=== PATIENT | female | born 1930 | race Caucasian/White ===

== ENCOUNTER 2017-09-05 11:21 | Inpatient (IN) | payer OTHER ==
[~2017-09-05] VITALS: Ht 160 cm; Wt 59.9 kg
--- NOTE | 2017-09-05 11:51 | ED GENERAL ADULT ---
History of Present Illness General Chief Complaint: General Adult Stated Complaint: BIBA, HYPOTENSION Source: patient Exam Limitations: schizophrenia Vital Signs & Intake/Output Vital Signs & Intake/Output Vital Signs Date Time Temp Pulse Resp B/P B/P Pulse O2 O2 Flow FiO2 Mean Ox Delivery Rate 09/06 0800 94 Room Air 09/06 0657 97.9 38 18 110/62 94 Room Air 09/06 0000 Room Air 09/05 2325 98.5 46 20 118/60 96 Room Air 09/05 1942 98 Room Air 09/05 1940 97.7 59 22 120/64 98 Room Air 09/05 1908 97.2 44 18 112/64 97 Room Air Room Air 09/05 1720 97.0 48 18 119/60 98 Room Air Room Air 09/05 1603 37 18 108/55 98 Room Air Room Air 09/05 1436 96.4 35 20 105/62 98 Room Air 09/05 1309 97.0 40 20 104/53 97 Room Air ED Intake and Output 09/06 0000 09/05 1200 Intake Total 120 1000 Output Total Balance 120 1000 Intake, IV 1000 Intake, Oral 120 Number 1 Bowel Movements Patient 132 lb 132 lb Weight Weight Estimated Reported by Patient Measurement Method Allergies Coded Allergies: No Known Allergies (09/05/17) Triage Note: PT BIBA FROM MD'S OFFICE FOR HYPOTENSION AND BRADYCARDIA. PT WAS THERE FOR ROUTINE APPOINTMENT. ARRIVES TO ED, ALERT/ORIENTED/PALE. PT HAS NO COMPLAINTS. BP OBTAINED WITH DOPPLER 90/30, HEARTRATE 40. PT HAS NO COMPLAINTS. INC OF LARGE AMOUNT OF SOFT STOOL, PRATIK CARE PROVIDED. GUIAC NEGATIVE. AWAITING PROVIDER EVAL. Triage Nurses Notes Reviewed? yes HPI: Patient presents for evaluation of decreased heart rate and blood pressure at the upper shaper's office today. The patient herself states that she has felt winded recently but has no other complaints currently. (Nata MCCORMACK,Jeremie Monsalve) Reconcile Medications Aspirin (Aspirin*) 81 MG TAB.CHEW 1 TAB PO DAILY cad (Reported) Atorvastatin Calcium (Lipitor) 80 MG TABLET 1 TAB PO DAILY cholesterol ( Reported) Levothyroxine Sodium 88 MCG TABLET 1 TAB PO DAILY thyroid (Reported) Metoprolol Tartrate 25 MG TABLET 0.5 TAB PO BID htn (Reported) Risperidone (Risperdal) 3 MG TABLET 1 TAB PO QPM mental health (Reported) Ziprasidone HCl (Geodon) 40 MG CAPSULE 1 CAP PO BID mental health (Reported) (Loli MCCORMACK,Neida) Past History Travel History Traveled to Daily past 21 day No Medical History Any Pertinent Medical History? see below for history Cardiovascular: hypertension Psychiatric: schizophrenia Endocrine: hypothyroidism Surgical History Surgical History: non-contributory Psychosocial History What is your primary language Nigerian Tobacco Use: Quit >30 days ago ETOH Use: denies use Illicit Drug Use: denies illicit drug use Family History Hx Contributory? No (Nata MCCORMACK,Jeremie Monsalve) Review of Systems Review of Systems Constitutional: Reports: no symptoms. EENTM: Reports: no symptoms. Respiratory: Reports: no symptoms. Cardiovascular: Reports: see HPI. GI: Reports: no symptoms. Genitourinary: Reports: no symptoms. Musculoskeletal: Reports: no symptoms. Skin: Reports: no symptoms. Neurological/Psychological: Reports: no symptoms. Hematologic/Endocrine: Reports: no symptoms. Immunologic/Allergic: Reports: no symptoms. All Other Systems: Reviewed and Negative (Nata MCCORMACK,Jeremie Monsalve) Physical Exam Physical Exam General Appearance: see below Comments: Gen.: Well-nourished, well-developed, no acute respiratory distress. Head: Normocephalic, atraumatic. Eyes: Normal inspection bilaterally Ears: Normal inspection bilaterally Nose: Normal inspection Throat/mouth : Moist mucosa Neck: Supple, full range of motion, no goiter Heart: Regular rate and rhythm, no murmurs rubs or gallops Lungs: Clear to auscultation bilaterally with normal air entry Chest: Nontender Back: Normal range of motion Abdomen: Soft, nontender, nondistended but with mild tympany, normal bowel sounds Extremities: Normal range of motion grossly, equal radial pulses, no cyanosis clubbing or edema Neurologic: Cranial nerves grossly intact, speech is clear Skin: warm and dry Psychiatric: Calm, cooperative, no apparent delusions or hallucinations Core Measures ACS in differential dx? No CVA/TIA Diagnosis: No Sepsis Present: No Sepsis Focused Exam Completed? No (Nata MCCORMACK,Jeremie Monsalve) Progress Differential Diagnoses I considered the following diagnoses in my evaluation of the patient: Dehydration, volume depletion, electrolyte abnormality, sick sinus syndrome, acute coronary syndrome, medication side effect Plan of Care: Orders Procedure Date/time Status Regular Diet 09/06 B Active Change service to 09/06 0902 Active LYME TITRE 09/06 0600 Complete CBC WITHOUT DIFFERENTIAL 09/06 0600 Complete BASIC ELECTROLYTES PLUS BUN&CR 09/06 0600 Complete TROPONIN LEVEL 09/06 0000 Complete EKG 09/06 0000 Active Change service to 09/06 UNK Active Turn and Reposition 09/05 1951 Active Skin Integrity Protocol 09/05 1951 Active Skin/Pressure Ulcer Assess (Sk 09/05 1951 Active NUTRITIONAL CONSULT 09/05 195 Active Vital Signs 09/05 193 Active Teach/Educate 09/05 193 Active Pain Treatment and Response 09/05 193 Active Nutritional Intake, Monitor 09/05 193 Active Isolation 09/05 193 Active Intake & Output 09/05 193 Active Patient Care Conference 09/05 193 Active Activity/Ambulation 09/05 1939 Active CORTISOL PM 09/05 1810 Complete URINE DRUGS OF ABUSE 09/05 1750 Active URINALYSIS 09/05 1750 Active TROPONIN LEVEL 09/05 1746 Complete EKG 09/05 1746 Active Code Status 09/05 1744 Active Pathway - chart 09/05 1627 Active House Staff 09/05 1627 Active Patient Data 09/05 1627 Active Code Status 09/05 1627 Complete Patient Data 09/05 1608 Active ED Holding Orders 09/05 1604 Active Admit to inpatient 09/05 1604 Active Code Status 09/05 1604 Complete Vital Signs 09/05 1301 Active TOTAL IRON BINDING CAPACITY 09/05 1216 Complete RETICULOCYTE COUNT 09/05 1216 Complete FERRITIN 09/05 1216 Complete SERUM IRON 09/05 1216 Complete Lab Add-on Test 09/05 UNK Active VTE Mechanical Prophylaxis 09/05 UNK Active Vital Signs 09/05 UNK Complete MISTAKE 09/05 UNK Active Telemetry/Clinical Liaison 09/05 UNK Active Nursing Misc 09/05 UNK Active Intake & Output 09/05 UNK Active Current Medications Sig/Fidelia Start time Last Medication Dose Stop Time Status Admin Atorvastatin Calcium 80 MG 1700 09/06 1700 AC (Lipitor) Ferrous Sulfate 325 MG DAILY 09/06 1118 AC (Feosol) Aspirin 81 MG DAILY 09/06 1000 AC 09/06 (Aspirin) 0853 Enoxaparin Sodium 40 MG DAILY 09/06 1000 AC 09/06 (Lovenox) 0853 Levothyroxine Sodium 0.088 MG DAILY AC 09/06 0700 AC 09/06 (Synthroid) 0516 Risperidone 3 MG QPM 09/05 2200 CAN (risperiDONE) Ziprasidone 40 MG BID 09/05 2200 CAN (Geodon 40MG Cap) Acetaminophen 650 MG Q6P PRN 09/05 1630 AC (Tylenol) Ibuprofen 600 MG Q6P PRN 09/05 1630 AC (Motrin) Oxycodone/ 2 TAB Q6P PRN 09/05 1630 AC Acetaminophen (Percocet) Laboratory Tests 09/06/17 0633: Anion Gap 10, Estimated GFR > 60, BUN/Creatinine Ratio 24.3, CBC w Diff NO MAN DIFF REQ, RBC 2.76 L, MCV 82.5, MCH 27.1, RDW 15.5 H, MPV 8.7, Gran % 48.4, Lymphocytes % 41.6, Monocytes % 7.2, Eosinophils % 2.4, Basophils % 0.4, Absolute Granulocytes 2.6, Absolute Lymphocytes 2.3, Absolute Monocytes 0.4, Absolute Eosinophils 0.1, Absolute Basophils 0, PUBS MCHC 32.8 L, Lyme Disease Antibody 0.12 09/06/17 0020: Troponin I < 0.01 09/05/17 1810: Troponin I 0.02, Cortisol PM Sample 10.3 Initial ED EKG: sinus evette, 1st hb Comments: 09/05/2017 1:14:35 PM patient is feeling better and has no specific complaint at this time. Blood pressure is now normal overall heart rate remains in the 30s to 40s beats per minute. IV levothyroxin "stress dose" has been ordered. 09/05/2017 2:54:31 PM patient's case discussed with Dr. Tolentino who recommends telemetry monitoring and discontinuation of metoprolol. (Nata MCCORMACK,Jeremie Monsalve) Departure Departure Disposition: STILL A PATIENT Condition: Stable Clinical Impression Primary Impression: Bradycardia Secondary Impressions: Hypotension Qualifiers: Hypotension type: unspecified hypotension type Qualified Code: I95.9 - Hypotension, unspecified Referrals: Maria Alejandra Falk MD (PCP/Family) Departure Forms: Customer Survey General Discharge Information Observation Note Spoke With: Yobany MCCORMACK,Vadim Physician Advisor Notified: RAYSA MCCORMACK,JONA Skinner Place Patient In: Non-ED OBS Care Area Rationale for Observation: My rational for observation is as follows patient is persistently bradycardic and currently takes metoprolol. This patient's bradycardia places her at risk of hypotension, syncope, chest pain, trouble breathing and mortality, particularly if her heart rate slows any further. I feel she now requires continuous cardiac monitoring and discontinuation of her metoprolol. Cardiology consultation should also be obtained for the possibility of pacemaker placement at the patient's heart rate does not improve with cessation of beta-blockade. The patient is not a good candidate for outpatient management given the possible adverse consequences of her bradycardia along with the need for continuous cardiac monitoring. (Nata MCCORMACK,Jeremie Monsalve) Departure Time of Disposition: 1604 Admission Note Spoke With: Vadim Haywood MD Documentation of Exam: Documentation of any treatments & extenuating circumstances including Concerns Regarding Discharge (functional status, medication knowledge or non-compliance, living conditions, etc.) that warrant an admission rather than observation: [ TELE MONITOR, SERIAL EKG, CARDIOLOGY CONSULT, CONSIDER PACER PADS, HOLD BETA BLOCKERS, CARDIOLOGY CONSULTATION DR TOLENTINO] (Neida Ennis MD) Critical Care Note Critical Care Note Critical Care Time: non-applicable (Neida Ennis MD)
[2017-09-05 12:24] LABS: ABSOLUTE BASOPHIL COUNT 0 /CUMM (0.0-0.2); ABSOLUTE EOSINOPHIL COUNT 0.1 /CUMM (0.0-0.7); ABSOLUTE GRANULOCYTE CT 5.6 /CUMM (1.4-6.5); ABSOLUTE LYMPH COUNT 1.3 /CUMM (1.2-3.4); ABSOLUTE MONOCYTE COUNT 0.6 /CUMM (0.10-0.60); BASOPHIL % 0.6 % (0.0-2.0); EOSINOPHIL % 1.1 % (0-5); GRANULOCYTE % 73.1 % (42.2-75.2); HEMATOCRIT 27.5 % (37-47); MEAN CORPUSCULAR HGB 26.7 PG (27.0-31.0); MEAN CORPUSCULAR HGB CONC 31.8 G/DL (33.0-37.0); MEAN CORPUSCULAR VOLUME 83.9 FL (81.0-99.0); MEAN PLATELET VOLUME 7.9 FL (7.4-10.4); PLATELET COUNT 284 /CUMM (130-400); RBC DISTRIBUTION WIDTH 15.4 % (11.5-14.5); RED BLOOD CELL CT 3.28 /CUMM (4.20-5.40); WHITE BLOOD CELL COUNT 7.7 /CUMM (4.8-10.8)
--- NOTE | 2017-09-05 13:17 | RADIOLOGY REPORT ---
EXAMINATION: XR PORTABLE CHEST CLINICAL INFORMATION: Low blood pressure and heart rate, evaluate for infiltrate. COMPARISON: There are no prior studies for comparison. TECHNIQUE: Portable frontal view of the chest was obtained. FINDINGS: There is a rounded central retrocardiac density noted which could represent a prominent hiatal hernia however a definite air-fluid level is not identified. The left hemidiaphragm is not well visualized. No additional focal areas of airspace opacification are noted, the lungs are otherwise clear. No pleural effusions are present. There is cardiomegaly. The bony structures are unremarkable. IMPRESSION: Poor visualization of left retrocardiac region, left basilar infiltrate is not excluded. Alternatively a rounded density in the retrocardiac region could represent a prominent hiatal hernia. Prior studies may be helpful, alternatively consider obtaining a lateral view.
--- NOTE | 2017-09-05 16:15 | History & Physical ---
John Reilly MDapna 09/05/17 1614: General Information and HPI MD Statement: I have seen and personally examined DORON THORPE and documented this H&P. The patient is a 87 year old F who presented with a patient stated chief complaint of [bradycardia]. Source of Information: patient Exam Limitations: no limitations History of Present Illness: 87-year-old female with past medical history of hypertension, schizophrenia, hypothyroidism was evaluated at endocrinologists office and found to have decreased heart rate 40/m and blood pressure 90/30 and was referred to [facility] for further management. According to patient she offers no complaints and until today's office visit found to have bradycardia and hypotension. Patient denies chest pain, shortness of breath, dizziness, vision changes, weakness, altered sensation, abdominal pain, nausea, vomiting, fever, chills, blackout, increased vision, tinnitus, headache, altered bowel habits. Patient was given a bolus of normal saline in the ER. Patient TSH was 12 and was given a IV stress dose of levothyroxine 50 mcg Allergies/Medications Allergies: Coded Allergies: No Known Allergies (09/05/17) Home Med list Aspirin (Aspirin*) 81 MG TAB.CHEW 1 TAB PO DAILY cad (Reported) Atorvastatin Calcium (Lipitor) 80 MG TABLET 1 TAB PO DAILY cholesterol ( Reported) Levothyroxine Sodium 88 MCG TABLET 1 TAB PO DAILY thyroid (Reported) Metoprolol Tartrate 25 MG TABLET 0.5 TAB PO BID htn (Reported) Risperidone (Risperdal) 3 MG TABLET 1 TAB PO QPM mental health (Reported) Ziprasidone HCl (Geodon) 40 MG CAPSULE 1 CAP PO BID mental health (Reported) Compliance With Home Meds: GOOD Past History Travel History Traveled to Daily past 21 day No Medical History Blood Transfusion Hx: No Neurological: NONE Cardiovascular: hypertension Respiratory: NONE Gastrointestinal: NONE Hepatic: NONE Psychiatric: schizophrenia Endocrine: hypothyroidism Surgical History Surgical History: non-contributory Past Family/Social History Family History Relations & Conditions if any Relation not specified for: *No pertinent family history Psychosocial History Where do you live? Long Term Facility Who Do You Live With? self Primary Language: Andorran ETOH Use: denies use Illicit Drug Use: denies illicit drug use Functional Ability ADLs Independent: dressing, eating, toileting, bathing. Ambulation: walker IADLs Needs Assist: shopping, housework, finances, food prep, telephone, transportation, medication admin. Review of Systems Review of Systems Constitutional: Reports: no symptoms. Cardiovascular: Reports: no symptoms. Respiratory: Reports: no symptoms. GI: Reports: no symptoms. Genitourinary: Reports: no symptoms. Musculoskeletal: Reports: no symptoms. Skin: Reports: no symptoms. Neurological/Psychological: Reports: no symptoms. Exam & Diagnostic Data Last 24 Hrs of Vital Signs/I&O Vital Signs Date Time Temp Pulse Resp B/P B/P Pulse O2 O2 Flow FiO2 Mean Ox Delivery Rate 09/05 1942 98 Room Air 09/05 1908 97.2 44 18 112/64 97 Room Air Room Air 09/05 1720 97.0 48 18 119/60 98 Room Air Room Air 09/05 1603 37 18 108/55 98 Room Air Room Air 09/05 1436 96.4 35 20 105/62 98 Room Air 09/05 1309 97.0 40 20 104/53 97 Room Air 09/05 1202 99 Room Air 09/05 1134 97.7 38 20 90/30 99 Room Air Intake & Output 09/05 1600 09/05 0800 09/05 0000 Intake Total 1000 Output Total Balance 1000 Intake, IV 1000 Patient 132 lb Weight Weight Reported by Patient Measurement Method Physical Exam General Appearance Alert, Oriented X3, Cooperative Skin No Rashes, No Breakdown HEENT Atraumatic Neck Supple, No JVD Cardiovascular Regular Rate, Normal S1, Normal S2, diastolic murmur Lungs Clear to Auscultation Abdomen Normal Bowel Sounds, Soft, No Tenderness Neurological Normal Speech, Strength at 5/5 X4 Ext Extremities ankle edema Last 24 Hrs of Labs/Feroz: Laboratory Tests 09/05/17 1810: Troponin I 0.02, Cortisol PM Sample 10.3 09/05/17 1216: Anion Gap 15, Estimated GFR > 60, BUN/Creatinine Ratio 15.0, Glucose 91, Calcium 9.5, Magnesium 1.9, Iron 26 L, TIBC 380, Ferritin 11.3, Troponin I 0.01, TSH 12.000 H, Free T4 1.71, CBC w Diff NO MAN DIFF REQ, RBC 3.28 L, MCV 83.9, MCH 26.7 L, RDW 15.4 H, MPV 7.9, Gran % 73.1, Lymphocytes % 17.1 L, Monocytes % 8.1, Eosinophils % 1.1, Basophils % 0.6, Absolute Granulocytes 5.6, Absolute Lymphocytes 1.3, Absolute Monocytes 0.6, Absolute Eosinophils 0.1, Absolute Basophils 0, PUBS MCHC 31.8 L, Retic Count 1.48 Diagnostic Data CXR Results Poor visualization of left retrocardiac region, left basilar infiltrate is not excluded. Alternatively a rounded density in the retrocardiac region could represent a prominent hiatal hernia. Prior studies may be helpful, alternatively consider obtaining a lateral view. Assessment/Plan Assessment: 87 year-old female with past medical history of hypertension, hypothyroidism, schizophrenia was referred from typing secretary office with Hypotension and bradycardia. Patient was admitted in telemetry for further evaluation and management Admission vitals Temperature 90.7, pulse rate 38--- 44, respiratory rate 18, blood pressure 90/30 ----118/60 Admission labs WBC 7.7, hemoglobin 8.7, platelets 284, sodium 142, potassium 4.5, BUNs 12, creatinine 0.8, iron 26, TSH 12, free T4 1.71, cortisol 10.3. Problem list 1. Bradycardia for evaluation 2. Hypertension 3. Schizophrenia 4. Hypothyroidism 5. Anemia Assessment and plan 1. Bradycardia can be secondary due to antipsychotic medication, hypothyroidism , anemia. Patient was given a stress dose of levothyroxine in ER. But patient continued having heart rate 35-37. We will monitor her in telemetry and trend troponins and EKG. We will keep pacer pads available at bedside and if patient has continued bradycardia we will consider atropine. Cardiology consult placed. We will continue her aspirin and atorvastatin. 2. Hypertension We will hold her metoprolol in view of hypotension. Patient hypotension improved with bolus of normal saline. Repeat blood pressure 112/64. 3. Schizophrenia We will continue ziprasidone, risperidone. 4. Hypothyroidism We'll continue her levothyroxine 0.088 MCG. Endocrinology consult placed. 5. Anemia We will check iron studies. Guaiac stools were negative. Code-DNR/DNI Diet-heart healthy diet DVT prophylaxis-Lovenox As Ranked By This Provider Problem List: 1. Bradycardia 2. Hypotension Qualifiers Hypotension type: unspecified hypotension type Qualified Code: I95.9 - Hypotension, unspecified Core Measures/Misc (05/07) Acute Coronary Syndrome ACS Diagnosis: No Congestive Heart Failure Congestive Heart Failure Diagnosis No Cerebrovascular Accident CVA/TIA Diagnosis: No VTE (View Protocol) VTE Risk Factors Age>40 No Mechanical VTE Prophylaxis d/t Other No VTE Pharm Prophylaxis d/t Other Sepsis (View protocol) Sepsis Present: No Vadim Haywood MD 09/05/172034: Attending MD Review Statement Attending Statement Attending MD Statement: examined this patient, discuss w/resident/PA/OVEN DAUBER, agreed w/resident/PA/OVEN DAUBER, reviewed EMR data (avail) Attending Assessment/Plan: 87F PMH schizophrenia, HTN, HLD, hypothyroidism sent in from her typing secretary for bradycardia to 35. Patient is pleasant and alert and has no complaints. She is a bit confused but is able to answer all questions and is cooperative. She denies chest pain, lightheadedness, SOB, n/v. EKG shows sinus evette at 38. BP normal. TSH is 12, given IV Synthroid in ED. Plan: Tele, endo and cards consults , stop Metoprolol, Lyme, hold psych medications, pacer pads and Atropine at bedside, DVT PPx Mary Kate Holly MD 09/05/172150: Resident Review Statement Resident Statement: examined this patient, discussed with regulatory intern, agreed with regulatory intern Other Findings: This is a 87 yo female with PMH of hypertension, schizophrenia, hypothyroidism who was BIBA hypothyroidism and bradycardia from doctor's office. Documentation in chart states BP was noted to be 80/50 and HR was in 40s. Pt is AOx3 but incredibly poor historian (cannot tell me where she lives) so most of hisotry is obtained from the chart. I called [employer] for further details and unfortunately the most recent vitals were on 07/06/17 with HR 58, BP 138/64. Pt has had no recent change in medication regimen. The nurse I spoke with stated that the pt has been in routine health with no complaints. She was scheduled for an appt with Dr. Montejo bc she seemed to be losing weight. Only symptom pt can corroborate is that she seems to get more winded frequently. No fevers, night sweats, dizziness, chest pain, chest pressure, SOB, abdominal pain, nausea, vomiting, hematuria, or hematochezia. Nurse corroborates that pt was in usual health. PHYSICAL EXAM: HEENT: Pupils equal and reactive. EOMI Cardiovascular: Nml s1/s2; bradycardic, 2/6 diastolic murmur Skin: no erythema, rash or wounds present. Respiratory:CTAB GI: BSX4, No tenderness on palpation. EXT: trigger finger in l. 4th digit. 3+ ankle edema. no tenderness in calves ASSESSMENT: This is an 87-year-old female past medical history significant for hypertension, schizophrenia, hypothyroidism, who was found to have hypotension and bradycardia. Patient is completely asymptomatic at this time. Will admit to telemetry for further workup and monitoring. 1. Bradycardia and hypotension: Patient does take metoprolol at home. She is given medication by the [facility] staff. They deny any increase in dosage recently. Additionally, upon workup in ED patient has TSH of 12 and free T4 1.71. She was given an extra dose of IV levothyroxine in ED. EKG showed rate of 44: Normal sinus rhythm and QTc 459. Her blood pressure was 90/30 in ED. A quickly climbed up after one bolus of IV fluids. Differential diagnosis includes beta raeann, hypothyroidism, Lyme disease, atypical antipsychotic, cortisol insufficiency, or ischemic event.. * EKG and troponins * Urine tox * Follow-up TSH and free T4 * Endocrinology consult * Random cortisol level * Pacer pads at bedside * Atropine at bedside * Lyme titer * Holding all psych meds as there has been some reported incidents of bradycardia associated with atypical antipsychotics. * Holding beta raeann * Appreciate cardiology input * Appreciate endocrinology input 2. Anemia: Patient has hemoglobin 8.7 and hematocrit 27.5. In April 2017 hemoglobin was 9.8. She seems to be chronically low. * Iron studies * retic count * Type and cross * guiac negative 3. Schizophrenia: Patient takes Risperdal 3 mg, 1 tab daily and ziprasidone 40 mg, 1 tab by mouth twice a day. This regimen has been placed on hold given bradycardia. * Reevaluate in a.m. * Consider psych consult in a.m. 4. Incidental x-ray finding: There is "rounded central retrocardiac density"on chest x-ray. Unsure significance. * Obtain a repeat chest x-ray but this time PA and lateral view 5. Hypothyroid: TSH 12, FT4 1.71. Given IV levothyroxine in ED. * Endo consult * continue home levothyroxine of 88mcg chem ppx reg diet I asked patient multiple times regarding her CODE STATUS. She stated that she "did not wish to conjecture" about such things. I explained that we do not anticipate her imminent demise but she refused to share her thoughts on CODE STATUS other than she "left it in the hands of Zay." CODE STATUS at [facility] is DNR/DNI-verified on both paperwork and verbally. We'll continue same here.
[2017-09-05] MEDS ORDERED: LEVOTHYROXINE88 MCG PO (19:19)
[2017-09-05] MEDS ORDERED: LIPITOR80 M1 PO (19:19)
[2017-09-05] MEDS ORDERED: ASPIRIN81 M4 PO (19:19)
[2017-09-05] MEDS ORDERED: METOPROLOL TART25 M1 PO (19:20)
[2017-09-05] MEDS ORDERED: RISPERDAL3 M1 PO (19:20)
[2017-09-05] MEDS ORDERED: GEODON40 MG PO (19:21)
[2017-09-05 19:40] VITALS: BP 120/64
--- NOTE | 2017-09-05 19:54 | RADIOLOGY REPORT ---
EXAMINATION: XR CHEST CLINICAL INFORMATION: PREV x-ray WITH ? L BASILAR INFILTRATE COMPARISON: Chest x-ray 09/05/2017, 12:36 PM TECHNIQUE: 2 views of the chest were obtained. 6:57 PM FINDINGS: There is a large hiatal hernia. This accounts for the density in the retrocardiac area on the prior chest x-ray. There is no acute infiltrate. No pulmonary vascular congestion and no pleural effusion. No acute abnormality. IMPRESSION: Large hiatal hernia accounts for the density in the retrocardiac area on the prior chest x-ray today. There is no acute change of the chest.
--- NOTE | 2017-09-05 20:37 | Admission Certification ---
Admission Certification Certification Statement - As attending physician, I certify that at the time of - admission, based on clinical presentation, severity of - symptoms, need for further diagnostic testing and - therapeutic interventions, and risk of adverse outcomes - without in-hospital treatment, in my clinical assessment, - this patient requires an acute hospital stay for a minimum - of two nights or longer. I have also considered psychsocial - factors such as support system, advanced age, financial - issues, cognitive issues, and failed out-patient treatments, - past re-admission history, safety of patient, and lack of - compliance as applicable. Specific rationale supporting this admission is: Bradycardia 35
[2017-09-05 23:25] VITALS: BP 118/60
--- NOTE | 2017-09-06 06:29 | PN- Housestaff ---
Melba MCCORMACK,Aisha 09/06/17 0629: Subjective Follow-up For: Bradycardia and hypotension Complaints: no complaints Tele-Events Since Last Visit: Bradycardia heart rate 40 Subjective: I saw the patient today at bedside. She was lying in the bed comfortably. She says she slept well overnight and offers no complaints. She denies chest pain, shortness of breath, headache, nausea, vomiting. Review of Systems Constitutional: Reports: no symptoms. Cardiovascular: Reports: no symptoms. Respiratory: Reports: no symptoms. Gastrointestinal: Reports: no symptoms. Genitourinary: Reports: no symptoms. Musculoskeletal: Reports: no symptoms. Objective Last 24 Hrs of Vital Signs/I&O Vital Signs Date Time Temp Pulse Resp B/P B/P Pulse O2 O2 Flow FiO2 Mean Ox Delivery Rate 09/06 0800 94 Room Air 09/06 0657 97.9 38 18 110/62 94 Room Air 09/06 0000 Room Air 09/05 2325 98.5 46 20 118/60 96 Room Air 09/05 1942 98 Room Air 09/05 1940 97.7 59 22 120/64 98 Room Air 09/05 1908 97.2 44 18 112/64 97 Room Air Room Air 09/05 1720 97.0 48 18 119/60 98 Room Air Room Air 09/05 1603 37 18 108/55 98 Room Air Room Air 09/05 1436 96.4 35 20 105/62 98 Room Air 09/05 1309 97.0 40 20 104/53 97 Room Air 09/05 1202 99 Room Air Intake & Output 09/06 1600 09/06 0800 09/06 0000 Intake Total 120 120 Output Total Balance 120 120 Intake, Oral 120 120 Number 1 1 Bowel Movements Patient 132 lb Weight Weight Estimated Measurement Method Physical Exam General Appearance: Alert, Oriented X3, Cooperative HEENT: Atraumatic Cardiovascular: Regular Rate, Normal S1, Normal S2 Lungs: Clear to Auscultation Abdomen: Soft, No Tenderness Neurological: Strength at 5/5 X4 Ext, Normal Tone Current Medications: Current Medications Sig/Fidelia Start time Last Medication Dose Route Stop Time Status Admin Acetaminophen 650 MG Q6P PRN 09/05 1630 AC PO Aspirin 81 MG DAILY 09/06 1000 AC 09/06 PO 0853 Atorvastatin Calcium 80 MG 1700 09/06 1700 AC PO Atropine Sulfate 1 MG .STK-MED ONE 09/05 2107 DC IM 09/05 210 Enoxaparin Sodium 40 MG DAILY 09/06 1000 AC 09/06 SC 0853 Ferrous Sulfate 325 MG DAILY 09/06 1118 AC PO Ibuprofen 600 MG Q6P PRN 09/05 1630 AC PO Levothyroxine Sodium 0.088 MG DAILY AC 09/06 0700 AC 09/06 PO 0516 Levothyroxine Sodium 50 MCG ONCE ONE 09/05 1315 DC 09/05 IV 09/05 1316 1602 Oxycodone/ 2 TAB Q6P PRN 09/05 1630 AC Acetaminophen PO Risperidone 3 MG QPM 09/05 2200 CAN PO Sodium Chloride 1,000 ML BOLUS ONE 09/05 1215 DC 09/05 IV 09/05 1314 1216 Ziprasidone 40 MG BID 09/05 2200 CAN PO Last 24 Hrs of Lab/Feroz Results Last 24 Hrs of Labs/Mics: Laboratory Tests 09/06/17 0633: Anion Gap 10, Estimated GFR > 60, BUN/Creatinine Ratio 24.3, CBC w Diff NO MAN DIFF REQ, RBC 2.76 L, MCV 82.5, MCH 27.1, RDW 15.5 H, MPV 8.7, Gran % 48.4, Lymphocytes % 41.6, Monocytes % 7.2, Eosinophils % 2.4, Basophils % 0.4, Absolute Granulocytes 2.6, Absolute Lymphocytes 2.3, Absolute Monocytes 0.4, Absolute Eosinophils 0.1, Absolute Basophils 0, PUBS MCHC 32.8 L, Lyme Disease Antibody Pending 09/06/17 0020: Troponin I < 0.01 09/05/17 1810: Troponin I 0.02, Cortisol PM Sample 10.3 09/05/17 1216: Anion Gap 15, Estimated GFR > 60, BUN/Creatinine Ratio 15.0, Glucose 91, Calcium 9.5, Magnesium 1.9, Iron 26 L, TIBC 380, Ferritin 11.3, Troponin I 0.01, TSH 12.000 H, Free T4 1.71, CBC w Diff NO MAN DIFF REQ, RBC 3.28 L, MCV 83.9, MCH 26.7 L, RDW 15.4 H, MPV 7.9, Gran % 73.1, Lymphocytes % 17.1 L, Monocytes % 8.1, Eosinophils % 1.1, Basophils % 0.6, Absolute Granulocytes 5.6, Absolute Lymphocytes 1.3, Absolute Monocytes 0.6, Absolute Eosinophils 0.1, Absolute Basophils 0, PUBS MCHC 31.8 L, Retic Count 1.48 Assessment/Plan Assessment: 87 year-old female with past medical history of hypertension, hypothyroidism, schizophrenia was referred from toll service observer office with Hypotension and bradycardia. Patient was admitted in telemetry for further evaluation and management Admission vitals Temperature 90.7, pulse rate 38--- 44, respiratory rate 18, blood pressure 90/30 ----118/60 Admission labs WBC 7.7, hemoglobin 8.7, platelets 284, sodium 142, potassium 4.5, BUNs 12, creatinine 0.8, iron 26, TSH 12, free T4 1.71, cortisol 10.3. Problem list 1. Bradycardia for evaluation 2. Hypertension 3. Schizophrenia 4. Hypothyroidism 5. Anemia Assessment and plan 1. Bradycardia mostly looks like secondary due to hypothyroidism ineffective dose of levothyroxine. Endocrine consult placed. We will follow endocrinology recommendation. Can be secondary due to antipsychotic medication, hypothyroidism, or anemia. Patient was given a stress dose of levothyroxine in ER. But patient continued having heart rate 35-37. We will keep pacer pads available at bedside and if patient has continued to have bradycardia we will consider atropine. Patient will be followed by pathology supervisor today. Pacemaker interrogation will be done today. We will continue her aspirin and atorvastatin. 2. Hypertension We will hold her metoprolol in view of hypotension. Patient hypotension improved with bolus of normal saline. Repeat blood pressure 112/64. 3. Schizophrenia We will continue ziprasidone, risperidone. 4. Hypothyroidism We'll continue her levothyroxine 0.088 MCG. 5. Anemia We will check iron studies. Guaiac stools were negative. Code-DNR/DNI Diet-heart healthy diet DVT prophylaxis-Lovenox Problem List: 1. Bradycardia 2. Hypotension Pain Ratin Pain Location: none Pain Goal: Remain pain free Pain Plan: tyenol Tomorrow's Labs & Rationales: joaquin Ortega MD,Myah 09/06/17 1125: Attending Review Statement Attending Statement Attending Statement: examined this patient, discuss w/resident/PA/MEDIA SERVICES COORDINATOR, agreed w/resident/PA/MEDIA SERVICES COORDINATOR, reviewed EMR data (avail), discussed with nursing, discussed with case mgmt, amended to note Attending Assessment/Plan: Patient seen and examined. Resting comfortably and not in any acute distress, she continues to have sinus bradycardia on telemetry monitoring however rates have improved since admission. She denies any lightheadedness or chest pain. Denies shortness of breath or palpitations. She is hemodynamically stable. On examination heart sounds are regular but slow. Lungs are clear bilaterally. Abdomen is soft and nontender. She has no peripheral edema. Case discussed with her toll service observer. Patient has a history of hypothyroidism and was on Synthroid. Back in July her TSH was 5 her TSH trended down to 20 about a week later3. Her levothyroxine dose was increased to 88 mcg daily. With this dose her TSH has been trending downwards, her TSH trended down to 20 a few days after adjusting medication. It trended down to 11.5 last week. Her TSH is currently 12. Case was discussed with the endocrinology service, due to the improvement of her TSH level we will continue her on this regimen of Levothyroxine. Her bradycardia is likely a combination of her hypothyroidism, antipsychotic medications and the beta-raeann therapy she was on at home. Her beta-raeann and antipsychotic therapy are currently on hold and her hypothyroidism is being treated with levothyroxine. If she continues to improve with medical management she will not require placement of a permanent pacemaker. Cardiology notes appreciated. Patient is not on anticoagulant therapy. Obtain records from her primary care provider. Her iron profile is consistent with iron deficiency. H&H is acutely low at this morning compared to yesterday. Check stool guaiac and begin patient on oral iron supplements. Monitor H&H every 12 hours. Transfuse to keep hemoglobin level greater than 7 if persistently low.
[2017-09-06 06:57] VITALS: BP 110/62
[2017-09-06 08:22] LABS: ABSOLUTE BASOPHIL COUNT 0 /CUMM (0.0-0.2); ABSOLUTE EOSINOPHIL COUNT 0.1 /CUMM (0.0-0.7); ABSOLUTE GRANULOCYTE CT 2.6 /CUMM (1.4-6.5); ABSOLUTE LYMPH COUNT 2.3 /CUMM (1.2-3.4); ABSOLUTE MONOCYTE COUNT 0.4 /CUMM (0.10-0.60); BASOPHIL % 0.4 % (0.0-2.0); EOSINOPHIL % 2.4 % (0-5); GRANULOCYTE % 48.4 % (42.2-75.2); HEMATOCRIT 22.8 % (37-47); MEAN CORPUSCULAR HGB 27.1 PG (27.0-31.0); MEAN CORPUSCULAR HGB CONC 32.8 G/DL (33.0-37.0); MEAN CORPUSCULAR VOLUME 82.5 FL (81.0-99.0); MEAN PLATELET VOLUME 8.7 FL (7.4-10.4); PLATELET COUNT 245 /CUMM (130-400); RBC DISTRIBUTION WIDTH 15.5 % (11.5-14.5); RED BLOOD CELL CT 2.76 /CUMM (4.20-5.40); WHITE BLOOD CELL COUNT 5.4 /CUMM (4.8-10.8)
--- NOTE | 2017-09-06 11:17 | Cons- Cardiology ---
General Information and HPI Consulting Request Date of Consult: 09/06/17 Requested By: Myah Ortega MD Reason for Consult: Bradycardia Source of Information: patient, old records Exam Limitations: dementia History of Present Illness: The patient is an 87-year-old woman with a past medical history of paroxysmal atrial fibrillation, schizophrenia, both thyroid isn't, hypertension and hyperlipidemia. She was seen by her neurologist on a routine visit and noted to be bradycardic with heart rates of 30s as well as hypotensive with systolic blood pressures of 90s. She was then sent to our emergency room for further management. On arrival, the patient is otherwise asymptomatic for chest pains, palpitations nor dyspnea. She however is a suboptimal historian. On review of her outpatient records, the patient has generally been from a cardiac standpoint and has heart rates in the 50s. There has been no recent change in her medication regimen noted. No otherwise [id number] agents were used. On arrival however she was noted to be hypothyroid, with a TSH of 12. Bradycardia was thought to be multifactorial including due to her antipsychotic regimen. This was held with subsequent improvement in her underlying heart rate. Allergies/Medications Allergies: Coded Allergies: No Known Allergies (09/05/17) Home Med List: Aspirin (Aspirin*) 81 MG TAB.CHEW 1 TAB PO DAILY cad (Reported) Atorvastatin Calcium (Lipitor) 80 MG TABLET 1 TAB PO DAILY cholesterol ( Reported) Levothyroxine Sodium 88 MCG TABLET 1 TAB PO DAILY thyroid (Reported) Metoprolol Tartrate 25 MG TABLET 0.5 TAB PO BID htn (Reported) Risperidone (Risperdal) 3 MG TABLET 1 TAB PO QPM mental health (Reported) Ziprasidone HCl (Geodon) 40 MG CAPSULE 1 CAP PO BID mental health (Reported) Current Medications: Current Medications Sig/Fidelia Start time Last Medication Dose Route Stop Time Status Admin Acetaminophen 650 MG Q6P PRN 09/05 1630 AC PO Aspirin 81 MG DAILY 09/06 1000 AC 09/06 PO 0853 Atorvastatin Calcium 80 MG 1700 09/06 1700 AC PO Atropine Sulfate 1 MG .STK-MED ONE 09/05 2106 DC IM 09/05 2107 Enoxaparin Sodium 40 MG DAILY 09/06 1000 AC 09/06 SC 0853 Ibuprofen 600 MG Q6P PRN 09/05 1630 AC PO Levothyroxine Sodium 0.088 MG DAILY AC 09/06 0700 AC 09/06 PO 0516 Levothyroxine Sodium 50 MCG ONCE ONE 09/05 1315 DC 09/05 IV 09/05 1316 1602 Oxycodone/ 2 TAB Q6P PRN 09/05 1630 AC Acetaminophen PO Risperidone 3 MG QPM 09/05 2200 CAN PO Sodium Chloride 1,000 ML BOLUS ONE 09/05 1215 DC 09/05 IV 09/05 1314 1216 Ziprasidone 40 MG BID 09/05 2200 CAN PO Review of Systems Review of Systems: The review of systems was will to be adequately obtained due to the patient's underlying dementia Past History Travel History Traveled to Daily past 21 day No Medical History Blood Transfusion Hx: No Neurological: NONE EENT: DENIES Cardiovascular: hypertension Respiratory: NONE Gastrointestinal: NONE Hepatic: NONE Renal: DENIES Musculoskeletal: DENIES Psychiatric: schizophrenia Endocrine: hypothyroidism Blood Disorders: DENIES Cancer(s): DENIES 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 [facility] Who Do You Live With? self Services at Home: Nursing Primary Language: Sudanese Smoking Status: Former Smoker ETOH Use: denies use Illicit Drug Use: denies illicit drug use Functional Ability ADLs Independent: dressing, eating, toileting, bathing. Ambulation: walker IADLs Needs Assist: shopping, housework, finances, food prep, telephone, transportation, medication admin. Exam & Diagnostic Data Vital Signs and I&O Vital Signs Date Time Temp Pulse Resp B/P B/P Pulse O2 O2 Flow FiO2 Mean Ox Delivery Rate 09/06 0800 94 Room Air 09/06 0657 97.9 38 18 110/62 94 Room Air 09/06 0000 Room Air 09/05 2325 98.5 46 20 118/60 96 Room Air 09/05 1942 98 Room Air 09/05 1940 97.7 59 22 120/64 98 Room Air 09/05 1908 97.2 44 18 112/64 97 Room Air Room Air 09/05 1720 97.0 48 18 119/60 98 Room Air Room Air 09/05 1603 37 18 108/55 98 Room Air Room Air 09/05 1436 96.4 35 20 105/62 98 Room Air 09/05 1309 97.0 40 20 104/53 97 Room Air 09/05 1202 99 Room Air 09/05 1134 97.7 38 20 90/30 99 Room Air Intake & Output 09/06 1600 09/06 0809/06 0000 09/05 1600 09/05 0800 09/05 0000 Intake Total 103 552 1888 Output Total Balance 224 871 2657 Intake, IV 1000 Intake, Oral 120 120 Number 1 1 Bowel Movements Patient 132 lb 132 lb Weight Weight Estimated Reported by Patient Measurement Method Physical Exam: General: Nontoxic, no apparent distress, not oriented to place or time. HEENT: Sclera and conjunctiva within normal limits, without xanthelasmas. Neck: Carotids 2+ without bruits. Respiratory: Clear to auscultation, air movement is good, without accessory respiratory muscle use. Heart: Regular rate and rhythm, without murmurs, without JVD. Abdomen: Soft, nontender, no masses, normoactive bowel sounds. Extremities: Without clubbing, cyanosis, without edema. Neuro: Nonfocal exam, strength, 5 out of 5 Skin: Within normal limits without lesions. Psych: Mood and affect: Normal Labs/Feroz Results: Laboratory Tests 09/06 09/06 09/05 0633 0020 1810 Chemistry Sodium (137 - 145 mmol/L) 140 Potassium (3.5 - 5.1 mmol/L) 4.4 Chloride (98 - 107 mmol/L) 104 Carbon Dioxide (22 - 30 mmol/L) 26 Anion Gap (5 - 16) 10 BUN (7 - 17 mg/dL) 17 Creatinine (0.5 - 1.0 mg/dL) 0.7 Estimated GFR (>60 ml/min) > 60 BUN/Creatinine Ratio (7 - 25 %) 24.3 Troponin I (< 0.11 ng/ml) < 0.01 0.02 Cortisol PM Sample (1.7 - 14.1) 10.3 Hematology CBC w Diff NO MAN DIFF REQ WBC (4.8 - 10.8 /CUMM) 5.4 RBC (4.20 - 5.40 /CUMM) 2.76 L Hgb (12.0 - 16.0 G/DL) 7.5 L Hct (37 - 47 %) 22.8 L MCV (81.0 - 99.0 FL) 82.5 MCH (27.0 - 31.0 PG) 27.1 RDW (11.5 - 14.5 %) 15.5 H Plt Count (130 - 400 /CUMM) 245 MPV (7.4 - 10.4 FL) 8.7 Gran % (42.2 - 75.2 %) 48.4 Lymphocytes % (20.5 - 51.1 %) 41.6 Monocytes % (1.7 - 9.3 %) 7.2 Eosinophils % (0 - 5 %) 2.4 Basophils % (0.0 - 2.0 %) 0.4 Absolute Granulocytes (1.4 - 6.5 /CUMM) 2.6 Absolute Lymphocytes (1.2 - 3.4 /CUMM) 2.3 Absolute Monocytes (0.10 - 0.60 /CUMM) 0.4 Absolute Eosinophils (0.0 - 0.7 /CUMM) 0.1 Absolute Basophils (0.0 - 0.2 /CUMM) 0 PUBS MCHC (33.0 - 37.0 G/DL) 32.8 L Serology Lyme Disease Antibody Pending 09/05 1216 Chemistry Sodium (137 - 145 mmol/L) 142 Potassium (3.5 - 5.1 mmol/L) 4.5 Chloride (98 - 107 mmol/L) 102 Carbon Dioxide (22 - 30 mmol/L) 25 Anion Gap (5 - 16) 15 BUN (7 - 17 mg/dL) 12 Creatinine (0.5 - 1.0 mg/dL) 0.8 Estimated GFR (>60 ml/min) > 60 BUN/Creatinine Ratio (7 - 25 %) 15.0 Glucose (65 - 99 mg/dL) 91 Calcium (8.4 - 10.2 mg/dL) 9.5 Magnesium (1.6 - 2.3 mg/dL) 1.9 Iron (37 - 170 ug/dL) 26 L TIBC (265 - 497 ug/dL) 380 Ferritin (11.1 - 264 ng/mL) 11.3 Troponin I (< 0.11 ng/ml) 0.01 TSH (0.270 - 4.200 uIU/mL) 12.000 H Free T4 (0.85 - 1.93 ng/dL) 1.71 Hematology CBC w Diff NO MAN DIFF REQ WBC (4.8 - 10.8 /CUMM) 7.7 RBC (4.20 - 5.40 /CUMM) 3.28 L Hgb (12.0 - 16.0 G/DL) 8.7 L Hct (37 - 47 %) 27.5 L MCV (81.0 - 99.0 FL) 83.9 MCH (27.0 - 31.0 PG) 26.7 L RDW (11.5 - 14.5 %) 15.4 H Plt Count (130 - 400 /CUMM) 284 MPV (7.4 - 10.4 FL) 7.9 Gran % (42.2 - 75.2 %) 73.1 Lymphocytes % (20.5 - 51.1 %) 17.1 L Monocytes % (1.7 - 9.3 %) 8.1 Eosinophils % (0 - 5 %) 1.1 Basophils % (0.0 - 2.0 %) 0.6 Absolute Granulocytes (1.4 - 6.5 /CUMM) 5.6 Absolute Lymphocytes (1.2 - 3.4 /CUMM) 1.3 Absolute Monocytes (0.10 - 0.60 /CUMM) 0.6 Absolute Eosinophils (0.0 - 0.7 /CUMM) 0.1 Absolute Basophils (0.0 - 0.2 /CUMM) 0 PUBS MCHC (33.0 - 37.0 G/DL) 31.8 L Retic Count (0.5 - 2.0 %) 1.48 Assessment/Plan Assessment/Plan 87-year-old woman with a past medical history of paroxysmal atrial fibrillation, schizophrenia, both thyroid isn't, hypertension and hyperlipidemia. She was seen by her neurologist on a routine visit and noted to be bradycardic with heart rates of 30s as well as hypotensive with systolic blood pressures of 90s. She was then sent to our emergency room for further management. Bradycardia: Likely due to her medication regimen including her anti-schizophrenic regimen as well as low-dose metoprolol and hypothyroidism. At this time, her medication regimen has been held, and her heart rates have improved. We will continue to treat her hypothyroidism., And once improved, may consider restarting her antipsychotic regimen if needed. There is no indication for a pacemaker implantation at this time. Atrial fibrillation: The patient was noted to have paroxysmal atrial fibrillation on remote outpatient noted review. No evidence for the same however can be found at this time. As we have not seen atrial fibrillation, and as she has increased risk factors for full anticoagulation, I would not initiate this at this time. Further records from her outpatient primary care visits will be obtained to clarify this. Thank you for allowing us to participate in the care of your patient. Please do not hesitate to contact us further with any questions. Sincerely, Dano Yuen MD [facility][1] Cardiology [facility] Consult Acknowledgment - Thank you for your consult request.
[2017-09-06 15:08] VITALS: BP 126/70
--- NOTE | 2017-09-06 17:04 | Cons- Endocrinology ---
General Information and HPI Consulting Request Date of Consult: 09/06/17 Requested By: medical team Reason for Consult: management of hypothyroidism Source of Information: patient, old records Exam Limitations: confusion, poor historian History of Present Illness: 87 y/o female with PMHsignificant for schizophrenia and hypothyroidism, was referred to ER for evaluation after she was found to be hypotensive and bradycardic. In 07/2017, her TSH was 53.5. She was put on Levothyroxine 88 mcg daily. Repeat TFT done on 08/31/2017 showed TSH 11.5. Repeat TFT done on 09/05/2017-- TSH 12 and free T4 1.71. Patient received 50 mcg of levothyroxine iv while she was in ER. Her random cortisol level was only 10.3. Allergies/Medications Allergies: Coded Allergies: No Known Allergies (09/05/17) Home Med List: Aspirin (Aspirin*) 81 MG TAB.CHEW 1 TAB PO DAILY cad (Reported) Atorvastatin Calcium (Lipitor) 80 MG TABLET 1 TAB PO DAILY cholesterol ( Reported) Levothyroxine Sodium 88 MCG TABLET 1 TAB PO DAILY thyroid (Reported) Metoprolol Tartrate 25 MG TABLET 0.5 TAB PO BID htn (Reported) Risperidone (Risperdal) 3 MG TABLET 1 TAB PO QPM mental health (Reported) Ziprasidone HCl (Geodon) 40 MG CAPSULE 1 CAP PO BID mental health (Reported) Review of Systems Review of Systems Constitutional: Reports: see HPI. Cardiovascular: Denies: chest pain. Respiratory: Reports: short of breath. GI: Denies: abdominal pain. Hematologic/Endocrine: Denies: polyuria, polydipsia. 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 Assisted Facility Who Do You Live With? self Services at Home: Nursing Primary Language: Divehi Smoking Status: Former Smoker ETOH Use: denies use Illicit Drug Use: denies illicit drug use Functional Ability ADLs Independent: dressing, eating, toileting, bathing. Ambulation: walker IADLs Needs Assist: shopping, housework, finances, food prep, telephone, transportation, medication admin. Exam & Diagnostic Data Last 24 Hrs of Vital Signs/I&O Vital Signs Date Time Temp Pulse Resp B/P B/P Pulse O2 O2 Flow FiO2 Mean Ox Delivery Rate 09/06 1508 97.6 64 20 126/70 97 Room Air 09/06 0800 94 Room Air 09/06 0657 97.9 38 18 110/62 94 Room Air 09/06 0000 Room Air 09/05 2325 98.5 46 20 118/60 96 Room Air 09/05 1942 98 Room Air 09/05 1940 97.7 59 22 120/64 98 Room Air 09/05 1908 97.2 44 18 112/64 97 Room Air Room Air 09/05 1720 97.0 48 18 119/60 98 Room Air Room Air Intake & Output 09/06 1600 09/06 0800 09/06 0000 Intake Total 700 120 120 Output Total Balance 700 120 120 Intake, Oral 700 120 120 Number 2 1 1 Bowel Movements Patient 132 lb 132 lb Weight Weight Estimated Measurement Method Physical Exam General Appearance: no apparent distress Neck: normal inspection Respiratory: crackles Cardiovascular: bradycardia (mild), systolic murmur Gastrointestinal: soft Extremities: no edema Skin: Pale Labs/Feroz Results: Laboratory Tests 09/06 09/06 09/05 0633 0020 1810 Chemistry Sodium (137 - 145 mmol/L) 140 Potassium (3.5 - 5.1 mmol/L) 4.4 Chloride (98 - 107 mmol/L) 104 Carbon Dioxide (22 - 30 mmol/L) 26 Anion Gap (5 - 16) 10 BUN (7 - 17 mg/dL) 17 Creatinine (0.5 - 1.0 mg/dL) 0.7 Estimated GFR (>60 ml/min) > 60 BUN/Creatinine Ratio (7 - 25 %) 24.3 Troponin I (< 0.11 ng/ml) < 0.01 0.02 Cortisol PM Sample (1.7 - 14.1) 10.3 Hematology CBC w Diff NO MAN DIFF REQ WBC (4.8 - 10.8 /CUMM) 5.4 RBC (4.20 - 5.40 /CUMM) 2.76 L Hgb (12.0 - 16.0 G/DL) 7.5 L Hct (37 - 47 %) 22.8 L MCV (81.0 - 99.0 FL) 82.5 MCH (27.0 - 31.0 PG) 27.1 RDW (11.5 - 14.5 %) 15.5 H Plt Count (130 - 400 /CUMM) 245 MPV (7.4 - 10.4 FL) 8.7 Gran % (42.2 - 75.2 %) 48.4 Lymphocytes % (20.5 - 51.1 %) 41.6 Monocytes % (1.7 - 9.3 %) 7.2 Eosinophils % (0 - 5 %) 2.4 Basophils % (0.0 - 2.0 %) 0.4 Absolute Granulocytes (1.4 - 6.5 /CUMM) 2.6 Absolute Lymphocytes (1.2 - 3.4 /CUMM) 2.3 Absolute Monocytes (0.10 - 0.60 /CUMM) 0.4 Absolute Eosinophils (0.0 - 0.7 /CUMM) 0.1 Absolute Basophils (0.0 - 0.2 /CUMM) 0 PUBS MCHC (33.0 - 37.0 G/DL) 32.8 L Serology Lyme Disease Antibody (RATIO) 0.12 09/05 1750 Toxicology Methadone Screen Cancelled Barbiturate Screen Cancelled Ur Phencyclidine Scrn Cancelled Amphetamines Screen Cancelled U Benzodiazepines Scrn Cancelled Urine Cocaine Screen Cancelled Urine Cannabis Screen Cancelled Urines Urine Color Cancelled Urine Clarity Cancelled Urine pH Cancelled Ur Specific [place] Cancelled Urine Protein Cancelled Urine Ketones Cancelled Urine Nitrite Cancelled Urine Bilirubin Cancelled Urine Urobilinogen Cancelled Ur Leukocyte Esterase Cancelled Ur Microscopic Cancelled Urine Hemoglobin Cancelled Urine Glucose Cancelled Assessment/Plan Assessment/Plan 87 y/o female with PMHsignificant for schizophrenia and hypothyroidism, was referred to ER for evaluation after she was found to be hypotensive and bradycardic. In addition, she is anemic. 1. hypothyroidism: ---as her TFT has been improving soncrissy 07/2017, I will continue Levothyroxine 88 mcg daily for now; ---repeat TFT in 2 weeks; ---check thyroid antibody (add-on to am lab) 2. low random cortisol in the setting of hypotension and bradycardia --- check am cortisol level tomorrow. will follow. Consult Acknowledgment - Thank you for your consult request.
[2017-09-06 18:58] LABS: ABSOLUTE BASOPHIL COUNT 0.1 /CUMM (0.0-0.2); ABSOLUTE EOSINOPHIL COUNT 0.1 /CUMM (0.0-0.7); ABSOLUTE GRANULOCYTE CT 4.2 /CUMM (1.4-6.5); ABSOLUTE LYMPH COUNT 2.3 /CUMM (1.2-3.4); ABSOLUTE MONOCYTE COUNT 0.4 /CUMM (0.10-0.60); BASOPHIL % 0.7 % (0.0-2.0); EOSINOPHIL % 1.5 % (0-5); GRANULOCYTE % 59.1 % (42.2-75.2); HEMATOCRIT 23.6 % (37-47); MEAN CORPUSCULAR HGB 26.9 PG (27.0-31.0); MEAN CORPUSCULAR HGB CONC 32.3 G/DL (33.0-37.0); MEAN CORPUSCULAR VOLUME 83.1 FL (81.0-99.0); MEAN PLATELET VOLUME 8.1 FL (7.4-10.4); PLATELET COUNT 274 /CUMM (130-400); RBC DISTRIBUTION WIDTH 15.3 % (11.5-14.5); RED BLOOD CELL CT 2.84 /CUMM (4.20-5.40); WHITE BLOOD CELL COUNT 7.1 /CUMM (4.8-10.8)
[2017-09-06 23:36] VITALS: BP 132/78
[2017-09-07 06:38] VITALS: BP 130/74
--- NOTE | 2017-09-07 07:30 | PN- Housestaff ---
Melba MCCORMACK,Aisha 09/07/17 0730: Subjective Follow-up For: Bradycardia, anemia Complaints: no complaints Tele-Events Since Last Visit: Bradycardia heart rate 50-40 Subjective: I saw the patient today at bedside. She was sitting in a bed comfortably. She says she slept well overnight. She denies headache, nausea, vomiting, palpitation, chest pain, shortness of breath. Patient had 2 bowel movements since admission and both are guaiac negative. Review of Systems Constitutional: Reports: no symptoms. Cardiovascular: Reports: no symptoms. Respiratory: Reports: no symptoms. Gastrointestinal: Reports: no symptoms. Genitourinary: Reports: no symptoms. Musculoskeletal: Reports: no symptoms. Objective Last 24 Hrs of Vital Signs/I&O Vital Signs Date Time Temp Pulse Resp B/P B/P Pulse O2 O2 Flow FiO2 Mean Ox Delivery Rate 09/07 0638 97.8 43 20 130/74 96 Room Air 09/06 2336 98.5 53 18 132/78 96 Room Air 09/06 1600 97 Room Air 09/06 1508 97.6 64 20 126/70 97 Room Air Intake & Output 09/07 1600 09/07 0800 09/07 0000 Intake Total 100 480 Output Total Balance 100 480 Intake, Oral 100 480 Number 1 1 Bowel Movements Physical Exam General Appearance: Alert, Oriented X3, Cooperative, No Acute Distress Cardiovascular: Regular Rate, Normal S1, Normal S2, No Murmurs Lungs: Clear to Auscultation Abdomen: Normal Bowel Sounds, Soft, No Tenderness Neurological: Normal Speech, Normal Tone Current Medications: Current Medications Sig/Fidelia Start time Last Medication Dose Route Stop Time Status Admin Acetaminophen 650 MG Q6P PRN 09/05 1630 AC PO Aspirin 81 MG DAILY 09/06 1000 AC 09/07 PO 0811 Atorvastatin Calcium 80 MG 1700 09/06 1700 AC 09/06 PO 1706 Cosyntropin 0.25 MG ONE ONE 09/07 1000 DC 09/07 IV 09/07 1001 1127 Enoxaparin Sodium 40 MG DAILY 09/06 1000 AC 09/07 SC 0811 Ferrous Sulfate 325 MG BID 09/07 1000 AC PO Ferrous Sulfate 325 MG DAILY 09/06 1118 DC 09/07 PO 0811 Ibuprofen 600 MG Q6P PRN 09/05 1630 AC PO Levothyroxine Sodium 0.088 MG DAILY AC 09/06 0700 AC 09/07 PO 0545 Oxycodone/ 2 TAB Q6P PRN 09/05 1630 AC Acetaminophen PO Last 24 Hrs of Lab/Feroz Results Last 24 Hrs of Labs/Mics: Laboratory Tests 09/07/17 0624: Total Bilirubin 0.3, Lactate Dehydrogenase 414, Vitamin B12 Pending, Folate Pending, TSH 4.520 H, Free T4 1.96 H, Cortisol AM Sample 10.5, CBC w Diff MAN DIFF ORDERED, RBC 2.69 L, MCV 82.7, MCH 26.1 L, RDW 15.7 H, MPV 8.4, Gran % 39.4 L, Lymphocytes % 47.9, Monocytes % 9.3, Eosinophils % 2.8, Basophils % 0.6 , Absolute Granulocytes 1.7, Segmented Neutrophils 49, Absolute Lymphocytes 2.0, Lymphocytes 38, Monocytes 8, Absolute Monocytes 0.4, Eosinophils 5, Absolute Eosinophils 0.1, Absolute Basophils 0, Platelet Estimate VERIFIED BY SMEAR, Hypochromic-Microcytic 1+, Poikilocytosis 1+, Anisocytosis 1+, PUBS MCHC 31.6 L 09/07/17 0600: Haptoglobin Pending 09/06/17 1821: CBC w Diff NO MAN DIFF REQ, RBC 2.84 L, MCV 83.1, MCH 26.9 L, RDW 15.3 H, MPV 8.1, Gran % 59.1, Lymphocytes % 32.4, Monocytes % 6.3, Eosinophils % 1.5, Basophils % 0.7, Absolute Granulocytes 4.2, Absolute Lymphocytes 2.3, Absolute Monocytes 0.4, Absolute Eosinophils 0.1, Absolute Basophils 0.1, PUBS MCHC 32.3 L Assessment/Plan Assessment: 87 year-old female with past medical history of hypertension, hypothyroidism, schizophrenia was referred from orthodontic technician office with Hypotension and bradycardia. Patient was admitted in telemetry for further evaluation and management Problem list 1. Bradycardia for evaluation 2. Hypertension 3. Schizophrenia 4. Hypothyroidism 5. Anemia Assessment and plan 1. Bradycardia - * secondary due to hypothyroidism ineffective dose of levothyroxine or due to beta raeann. Endocrinologyrecommended a repeat TSH and free T4 today. Patient GENOVEVA in July 2017 was 59, TSH upon admission was 12, TSH yesterday was 4.5. We will continue her current dose of levothyroxine 88 g. * Her cortisol level was low hence proceeding with cosyntropin stim relation test today. We will keep pacer pads available at bedside and if patient has continued to have bradycardia we will consider atropine. Patient will be followed by product builder today. Pacemaker interrogation will be done today. We will continue her aspirin and atorvastatin. 2. Hypertension * We will hold her metoprolol in view of hypotension. Patient hypotension improved with bolus of normal saline. Repeat blood pressure 112/64. 3. Schizophrenia * We will continue ziprasidone, risperidone. 4. Hypothyroidism * We'll continue her levothyroxine 0.088 MCG. 5. Anemia * Patient has an acute drop of hemoglobin since admission. Today her hemoglobin is 7. Her anemia can be secondary due to hypothyroidism [which can cause normocytic normochromic anemia] or autoimmune process/hemolytic anemia. We will do a full workup of hemolytic anemia LDH, haptoglobin, reticulocyte count, peripheral smear, vitamin B12, folic acid. Hematology oncology was consult who suggested 1 unit of blood transfusion now. Code-DNR/DNI Diet-heart healthy diet DVT prophylaxis-Lovenox Problem List: 1. Bradycardia Pain Ratin Pain Location: none Pain Goal: Remain pain free Pain Plan: tylenol Tomorrow's Labs & Rationales: cbc,bep Jordan MCCORMACK,Myah 09/07/17 1043: Attending MD Review Statement Attending Statement Attending MD Statement: examined this patient, discuss w/resident/PA/DIRECTOR OF RESEARCH, agreed w/resident/PA/DIRECTOR OF RESEARCH, reviewed EMR data (avail), discussed with nursing, discussed with case mgmt, amended to note Attending Assessment/Plan: Patient seen and examined. Resting comfortably and not in any acute distress. No issues overnight. On telemetry monitoring she remains in sinus bradycardia however it is improving with heart rate occasionally in the 70s. She remains asymptomatic and hemodynamically stable. On examination she is comfortable and offers no new complaints. Unknown cortisol level was low on admission. Repeat value continues to be low. Recommendations: -Continue to monitor patient conservatively. Endocrinology follow-up appreciated. We will follow-up repeat TSH and T4 levels today. Levothyroxine dose will be adjusted accordingly. -Patient has not developed any tachycardia raising concern for the need of beta- raeann therapy at this time. We will continue to monitor of negative chronotropic agents. -Follow-up with the endocrinology service regarding her low random cortisol level. -Patient is noted to have worsening anemia. She is guaiac negative 2. She has not been receiving her IV hydration ruling out hemodilution. -Repeat hemoglobin level this afternoon. If less than 7 transfuse 1 unit of PRBC. Obtain hematology consultation. She may require intravenous iron infusion.
[2017-09-07 08:17] LABS: ABSOLUTE BASOPHIL COUNT 0 /CUMM (0.0-0.2); ABSOLUTE EOSINOPHIL COUNT 0.1 /CUMM (0.0-0.7); ABSOLUTE MONOCYTE COUNT 0.4 /CUMM (0.10-0.60); MEAN CORPUSCULAR HGB CONC 31.6 G/DL (33.0-37.0); RED BLOOD CELL CT 2.69 /CUMM (4.20-5.40); WHITE BLOOD CELL COUNT 4.2 /CUMM (4.8-10.8)
[2017-09-07 09:03] LABS: ABSOLUTE GRANULOCYTE CT 1.7 /CUMM (1.4-6.5); BASOPHIL % 0.6 % (0.0-2.0); EOSINOPHIL % 2.8 % (0-5); GRANULOCYTE % 39.4 % (42.2-75.2); HEMATOCRIT 22.2 % (37-47); MEAN CORPUSCULAR HGB 26.1 PG (27.0-31.0); MEAN CORPUSCULAR VOLUME 82.7 FL (81.0-99.0); MEAN PLATELET VOLUME 8.4 FL (7.4-10.4); PLATELET COUNT 263 /CUMM (130-400); RBC DISTRIBUTION WIDTH 15.7 % (11.5-14.5)
--- NOTE | 2017-09-07 09:24 | PN- Endocrinology ---
Assessment/Plan Assessment: 87 y/o female with PMHsignificant for schizophrenia and hypothyroidism, was referred to ER for evaluation after she was found to be hypotensive and bradycardic. In addition, she is anemic. She is on Levothyroxine 88 mcg daily. Her TFT has been improving since 2016 with TSH from 53 down to 12. 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 Repeat am cortisol was 10.5 which is normal. BP 126-130/70-78; HR 43-64. Plan: 1. repeat TSH and free T4 today ( added-on to am lab) to look for a trend; 2. Levothyroxine will be adjusted accordingly. will follow. Subjective Subjective: Patient stated that she has been feeling well. Objective Last 24 Hrs of Vital Signs/I&O Vital Signs Date Time Temp Pulse Resp B/P B/P Pulse O2 O2 Flow FiO2 Mean Ox Delivery Rate 09/07 0638 97.8 43 20 130/74 96 Room Air 09/06 2336 98.5 53 18 132/78 96 Room Air 09/06 1600 97 Room Air 09/06 1508 97.6 64 20 126/70 97 Room Air Intake & Output 09/07 1600 09/07 0800 09/07 0000 Intake Total 100 480 Output Total Balance 100 480 Intake, Oral 100 480 Number 1 1 Bowel Movements Results Pertinent Lab/Feroz Results: Laboratory Tests 09/07 09/06 0624 1821 Chemistry TSH (0.270 - 4.200 uIU/mL) Pending Free T4 (0.85 - 1.93 ng/dL) Pending Cortisol AM Sample (4.46 - 22.7 ug/dL) 10.5 Hematology CBC w Diff Pending NO MAN DIFF REQ WBC (4.8 - 10.8 /CUMM) Pending 7.1 RBC (4.20 - 5.40 /CUMM) Pending 2.84 L Hgb (12.0 - 16.0 G/DL) Pending 7.6 L Hct (37 - 47 %) Pending 23.6 L MCV (81.0 - 99.0 FL) Pending 83.1 MCH (27.0 - 31.0 PG) Pending 26.9 L RDW (11.5 - 14.5 %) Pending 15.3 H Plt Count (130 - 400 /CUMM) Pending 274 MPV (7.4 - 10.4 FL) Pending 8.1 Gran % (42.2 - 75.2 %) 59.1 Lymphocytes % (20.5 - 51.1 %) 32.4 Monocytes % (1.7 - 9.3 %) 6.3 Eosinophils % (0 - 5 %) 1.5 Basophils % (0.0 - 2.0 %) 0.7 Absolute Granulocytes (1.4 - 6.5 /CUMM) 4.2 Absolute Lymphocytes (1.2 - 3.4 /CUMM) 2.3 Absolute Monocytes (0.10 - 0.60 /CUMM) 0.4 Absolute Eosinophils (0.0 - 0.7 /CUMM) 0.1 Absolute Basophils (0.0 - 0.2 /CUMM) 0.1 PUBS MCHC (33.0 - 37.0 G/DL) Pending 32.3 L
--- NOTE | 2017-09-07 10:51 | PN- Cardiology ---
Subjective Subjective: At reviewed. Sinus bradycardia rate of 50. During sleep sinus bradycardia rate of 30. Objective Vital Signs and I&Os Vital Signs Date Time Temp Pulse Resp B/P B/P Pulse O2 O2 Flow FiO2 Mean Ox Delivery Rate 09/07 0638 97.8 43 20 130/74 96 Room Air 09/06 2336 98.5 53 18 132/78 96 Room Air 09/06 1600 97 Room Air 09/06 1508 97.6 64 20 126/70 97 Room Air Intake & Output 09/07 1600 09/07 0800 09/07 0000 09/06 1600 09/06 0800 09/06 0000 Intake Total 100 480 700 120 120 Output Total Balance 100 480 700 120 120 Intake, Oral 100 480 700 120 120 Number 1 1 2 1 1 Bowel Movements Patient 132 lb 132 lb Weight Weight Estimated Measurement Method Physical Exam: Patient poor historian but comfortable admits to no complaints Head normocephalic atraumatic Eyes sclera anicteric conjunctiva showed pallor extraocular muscles were normal Chest lungs were clear bilaterally Heart regular rhythm sinus bradycardia Abdomen soft no organomegaly bowel sounds normal Extremities no clubbing cyanosis or edema Neurological no gross motor or sensory deficits Current Medications: Current Medications Sig/Fidelia Start time Last Medication Dose Route Stop Time Status Admin Acetaminophen 650 MG Q6P PRN 09/05 1630 AC PO Aspirin 81 MG DAILY 09/06 1000 AC 09/07 PO 0811 Atorvastatin Calcium 80 MG 1700 09/06 1700 AC 09/06 PO 1706 Cosyntropin 0.25 MG ONE ONE 09/07 1000 DC IV 09/07 1001 Enoxaparin Sodium 40 MG DAILY 09/06 1000 AC 09/07 SC 0811 Ferrous Sulfate 325 MG BID 09/07 1000 AC PO Ferrous Sulfate 325 MG DAILY 09/06 1118 DC 09/07 PO 0811 Ibuprofen 600 MG Q6P PRN 09/05 1630 AC PO Levothyroxine Sodium 0.088 MG DAILY AC 09/06 0700 AC 09/07 PO 0545 Oxycodone/ 2 TAB Q6P PRN 09/05 1630 AC Acetaminophen PO Results Last 48 Hrs of Labs/Mics: Laboratory Tests 09/07/17 0624: Total Bilirubin Pending, Lactate Dehydrogenase Pending, TSH 4.520 H, Free T4 1.96 H, Cortisol AM Sample 10.5, CBC w Diff MAN DIFF ORDERED, RBC 2.69 L, MCV 82.7, MCH 26.1 L, RDW 15.7 H, MPV 8.4, Gran % 39.4 L, Lymphocytes % 47.9, Monocytes % 9.3, Eosinophils % 2.8, Basophils % 0.6, Absolute Granulocytes 1.7, Segmented Neutrophils Pending, Absolute Lymphocytes 2.0, Absolute Monocytes 0.4, Absolute Eosinophils 0.1, Absolute Basophils 0, PUBS MCHC 31.6 L 09/07/17 0600: Haptoglobin Pending 09/06/17 1821: CBC w Diff NO MAN DIFF REQ, RBC 2.84 L, MCV 83.1, MCH 26.9 L, RDW 15.3 H, MPV 8.1, Gran % 59.1, Lymphocytes % 32.4, Monocytes % 6.3, Eosinophils % 1.5, Basophils % 0.7, Absolute Granulocytes 4.2, Absolute Lymphocytes 2.3, Absolute Monocytes 0.4, Absolute Eosinophils 0.1, Absolute Basophils 0.1, PUBS MCHC 32.3 L 09/06/17 0633: Anion Gap 10, Estimated GFR > 60, BUN/Creatinine Ratio 24.3, CBC w Diff NO MAN DIFF REQ, RBC 2.76 L, MCV 82.5, MCH 27.1, RDW 15.5 H, MPV 8.7, Gran % 48.4, Lymphocytes % 41.6, Monocytes % 7.2, Eosinophils % 2.4, Basophils % 0.4, Absolute Granulocytes 2.6, Absolute Lymphocytes 2.3, Absolute Monocytes 0.4, Absolute Eosinophils 0.1, Absolute Basophils 0, PUBS MCHC 32.8 L, Thyroglobulin Antibody < 15, Thyroid Peroxidase Ab > 1300 H, Lyme Disease Antibody 0.12 09/06/17 0020: Troponin I < 0.01 09/05/17 1810: Troponin I 0.02, Cortisol PM Sample 10.3 09/05/17 1750: Methadone Screen Cancelled, Barbiturate Screen Cancelled, Ur Phencyclidine Scrn Cancelled, Amphetamines Screen Cancelled, U Benzodiazepines Scrn Cancelled, Urine Cocaine Screen Cancelled, Urine Cannabis Screen Cancelled, Urine Color Cancelled, Urine Clarity Cancelled, Urine pH Cancelled, Ur Specific Driver Cancelled, Urine Protein Cancelled, Urine Ketones Cancelled, Urine Nitrite Cancelled, Urine Bilirubin Cancelled, Urine Urobilinogen Cancelled, Ur Leukocyte Esterase Cancelled, Ur Microscopic Cancelled, Urine Hemoglobin Cancelled, Urine Glucose Cancelled 09/05/17 1216: Anion Gap 15, Estimated GFR > 60, BUN/Creatinine Ratio 15.0, Glucose 91, Calcium 9.5, Magnesium 1.9, Iron 26 L, TIBC 380, Ferritin 11.3, Troponin I 0.01, TSH 12.000 H, Free T4 1.71, CBC w Diff NO MAN DIFF REQ, RBC 3.28 L, MCV 83.9, MCH 26.7 L, RDW 15.4 H, MPV 7.9, Gran % 73.1, Lymphocytes % 17.1 L, Monocytes % 8.1, Eosinophils % 1.1, Basophils % 0.6, Absolute Granulocytes 5.6, Absolute Lymphocytes 1.3, Absolute Monocytes 0.6, Absolute Eosinophils 0.1, Absolute Basophils 0, PUBS MCHC 31.8 L, Retic Count 1.48 Assessment/Plan Assessment/Plan In summary this 87-year-old female was admitted with the following problems #1. Reported sinus bradycardia with hypotension at an outpatient neurology office. In the hospital her resting heart rates during the day have been in the 50s. She does develop resting bradycardia during sleep. Cause for sinus bradycardia is multifactorial including hypothyroidism and antipsychotic medications. indication for pacemaker at this time will be observed. #2. History of schizophrenia #3. Hypothyroidism #4. Anemia being worked up She is not on any rate lowering medications. Her blood pressure is well controlled. Continue telemetry? Yes
[2017-09-07 14:00] VITALS: BP 132/64
[2017-09-07 15:05] VITALS: BP 132/64
--- NOTE | 2017-09-07 16:34 | Cons- Hematology ---
General Information and HPI Consulting Request Date of Consult: 09/07/17 Requested By: Jordan MCCORMACK,Myah Reason for Consult: anemia Source of Information: patient, old records Exam Limitations: clinical condition, poor historian History of Present Illness: Ms. Velasco is an 87-year-old female with schizophrenia, hypertension, hypothyroidism, and chronic anemia who present to the hospital with bradycardia and hypotension. Per the records, she has no significant complaints of chest pain, shortness breath, dizziness, lightheadedness, confusion, nausea, vomiting, or other neurological symptoms. She denies any issues currently. She states she is 67 year old. She reports her head is "tight." On admission she was noted to have a TSH of 12 and was given IV levothyroxine 50 mcg. her TSH back in July was 53.5 and was placed on levothyroxine 88 mcg daily. her thyroid peroxidase antibody was greater than 1300. She was also noted to have a hemoglobin of 8.7 with a hematocrit of 27.5. MCV was normal at 83.9. Platelet count and white count wer within normal limits. The day after admission, she was noted to have a hemoglobin of 7.5 and hematocrit of 22.8. Platelet count and white count decreased a little. Her stool was tested and was negative for any blood. Allergies/Medications Allergies: Coded Allergies: No Known Allergies (09/05/17) Home Med List: Aspirin (Aspirin*) 81 MG TAB.CHEW 1 TAB PO DAILY cad (Reported) Atorvastatin Calcium (Lipitor) 80 MG TABLET 1 TAB PO DAILY cholesterol ( Reported) Levothyroxine Sodium 88 MCG TABLET 1 TAB PO DAILY thyroid (Reported) Metoprolol Tartrate 25 MG TABLET 0.5 TAB PO BID htn (Reported) Risperidone (Risperdal) 3 MG TABLET 1 TAB PO QPM mental health (Reported) Ziprasidone HCl (Geodon) 40 MG CAPSULE 1 CAP PO BID mental health (Reported) Current Medications: Current Medications Sig/Fidelia Start time Last Medication Dose Route Stop Time Status Admin Acetaminophen 650 MG Q6P PRN 09/05 1630 AC PO Aspirin 81 MG DAILY 09/06 1000 AC 09/07 PO 0811 Atorvastatin Calcium 80 MG 1700 09/06 1700 AC 09/07 PO 1602 Cosyntropin 0.25 MG ONE ONE 09/07 1000 DC 09/07 IV 09/07 1001 1127 Enoxaparin Sodium 40 MG DAILY 09/06 1000 AC 09/07 SC 0811 Ferrous Sulfate 325 MG BID 09/07 1000 AC PO Ferrous Sulfate 325 MG DAILY 09/06 1118 DC 09/07 PO 0811 Ibuprofen 600 MG Q6P PRN 09/05 1630 AC PO Levothyroxine Sodium 0.088 MG DAILY AC 09/06 0700 AC 09/07 PO 0545 Oxycodone/ 2 TAB Q6P PRN 09/05 1630 AC Acetaminophen PO Review of Systems Review of Systems Constitutional: Reports: weakness. Denies: chills, fever. EENTM: Reports: see HPI. Denies: blurred vision, double vision. Cardiovascular: Denies: chest pain. Respiratory: Reports: cough. GI: Denies: constipation, diarrhea. Genitourinary: Denies: dysuria. Skin: Reports: dryness. Neurological/Psychological: Reports: confusion. Denies: anxiety. Hematologic/Endocrine: Denies: bruising, bleeding. All Other Systems: Reviewed and Negative Past History Travel History Traveled to Daily past 21 day No Medical History Blood Transfusion Hx: No Neurological: NONE EENT: DENIES Cardiovascular: hypertension Respiratory: NONE Gastrointestinal: NONE Hepatic: NONE Renal: DENIES Musculoskeletal: DENIES Psychiatric: schizophrenia Endocrine: hypothyroidism Blood Disorders: DENIES Cancer(s): DENIES CORPORATE BUYER/Reproductive: DENIES Surgical History Surgical History: non-contributory Family History Relations & Conditions If Any: Relation not specified for: *No pertinent family history Psychosocial History Where Do You Live? [facility] Who Do You Live With? self Services at Home: Nursing Primary Language: Northern Irish Smoking Status: Former Smoker ETOH Use: denies use Illicit Drug Use: denies illicit drug use Functional Ability ADLs Independent: dressing, eating, toileting, bathing. Ambulation: walker IADLs Needs Assist: shopping, housework, finances, food prep, telephone, transportation, medication admin. Exam & Diagnostic Data Vital Signs and I&O Vital Signs Date Time Temp Pulse Resp B/P B/P Pulse O2 O2 Flow FiO2 Mean Ox Delivery Rate 09/07 1505 97.8 50 24 132/64 95 09/07 1400 97.8 50 24 132/64 95 Room Air 09/07 0638 97.8 43 20 130/74 96 Room Air 09/06 2336 98.5 53 18 132/78 96 Room Air Intake & Output 09/07 1600 09/07 0800 09/07 0000 Intake Total 500 100 480 Output Total Balance 500 100 480 Intake, Oral 500 100 480 Number 1 1 1 Bowel Movements Physical Exam General Appearance: no apparent distress, awake, comfortable, thin Head: normal appearance Eyes: Bilateral: PERRL. Ears, Nose, Throat: normal pharynx Neck: supple Respiratory: chest non-tender, no respiratory distress, quiet respiration, crackles Cardiovascular: murmur, bradycardia Gastrointestinal: normal bowel sounds, soft, non-tender Extremities: no edema Neurologic/Psych: awake, alert, disoriented to time/date/year Cranial Nerves: normal speech, PERRL Skin: intact, warm/dry Lymphatic: no anterior cervical hui Last 48 Hours of Lab Results: Laboratory Tests 09/07 09/07 09/07 1400 1230 1200 Chemistry Cortisol PM Sample (1.7 - 14.1) 35.7 H 29.0 H Hematology CBC w Diff Cancelled Cancelled WBC Cancelled Cancelled RBC Cancelled Cancelled Hgb Cancelled Cancelled Hct Cancelled Cancelled MCV Cancelled Cancelled MCH Cancelled Cancelled RDW Cancelled Cancelled Plt Count Cancelled Cancelled MPV Cancelled Cancelled PUBS MCHC Cancelled Cancelled 09/07 09/07 0624 0600 Chemistry Total Bilirubin (0.2 - 1.3 mg/dL) 0.3 Lactate Dehydrogenase (313 - 618 U/L) 414 Vitamin B12 (239 - 931 pg/mL) 724 Folate (2.76 - 20.0 ng/mL) 5.9 TSH (0.270 - 4.200 uIU/mL) 4.520 H Free T4 (0.85 - 1.93 ng/dL) 1.96 H Cortisol AM Sample (4.46 - 22.7 ug/dL) 10.5 Hematology CBC w Diff MAN DIFF ORDERED WBC (4.8 - 10.8 /CUMM) 4.2 L RBC (4.20 - 5.40 /CUMM) 2.69 L Hgb (12.0 - 16.0 G/DL) 7.0 *L Hct (37 - 47 %) 22.2 L MCV (81.0 - 99.0 FL) 82.7 MCH (27.0 - 31.0 PG) 26.1 L RDW (11.5 - 14.5 %) 15.7 H Plt Count (130 - 400 /CUMM) 263 MPV (7.4 - 10.4 FL) 8.4 Gran % (42.2 - 75.2 %) 39.4 L Lymphocytes % (20.5 - 51.1 %) 47.9 Monocytes % (1.7 - 9.3 %) 9.3 Eosinophils % (0 - 5 %) 2.8 Basophils % (0.0 - 2.0 %) 0.6 Absolute Granulocytes (1.4 - 6.5 /CUMM) 1.7 Segmented Neutrophils (42.2 - 75.2 %) 49 Absolute Lymphocytes (1.2 - 3.4 /CUMM) 2.0 Lymphocytes (20.5 - 51.1 %) 38 Monocytes (1.7 - 9.3 %) 8 Absolute Monocytes (0.10 - 0.60 /CUMM) 0.4 Eosinophils (0 - 5.0 %) 5 Absolute Eosinophils (0.0 - 0.7 /CUMM) 0.1 Absolute Basophils (0.0 - 0.2 /CUMM) 0 Platelet Estimate (ADEQUATE) VERIFIED BY SMEAR Hypochromic-Microcytic 1+ Poikilocytosis 1+ Anisocytosis 1+ PUBS MCHC (33.0 - 37.0 G/DL) 31.6 L Haptoglobin Pending 09/06 09/06 1821 0633 Chemistry Sodium (137 - 145 mmol/L) 140 Potassium (3.5 - 5.1 mmol/L) 4.4 Chloride (98 - 107 mmol/L) 104 Carbon Dioxide (22 - 30 mmol/L) 26 Anion Gap (5 - 16) 10 BUN (7 - 17 mg/dL) 17 Creatinine (0.5 - 1.0 mg/dL) 0.7 Estimated GFR (>60 ml/min) > 60 BUN/Creatinine Ratio (7 - 25 %) 24.3 Hematology CBC w Diff NO MAN DIFF REQ NO MAN DIFF REQ WBC (4.8 - 10.8 /CUMM) 7.1 5.4 RBC (4.20 - 5.40 /CUMM) 2.84 L 2.76 L Hgb (12.0 - 16.0 G/DL) 7.6 L 7.5 L Hct (37 - 47 %) 23.6 L 22.8 L MCV (81.0 - 99.0 FL) 83.1 82.5 MCH (27.0 - 31.0 PG) 26.9 L 27.1 RDW (11.5 - 14.5 %) 15.3 H 15.5 H Plt Count (130 - 400 /CUMM) 274 245 MPV (7.4 - 10.4 FL) 8.1 8.7 Gran % (42.2 - 75.2 %) 59.1 48.4 Lymphocytes % (20.5 - 51.1 %) 32.4 41.6 Monocytes % (1.7 - 9.3 %) 6.3 7.2 Eosinophils % (0 - 5 %) 1.5 2.4 Basophils % (0.0 - 2.0 %) 0.7 0.4 Absolute Granulocytes (1.4 - 6.5 /CUMM) 4.2 2.6 Absolute Lymphocytes (1.2 - 3.4 /CUMM) 2.3 2.3 Absolute Monocytes (0.10 - 0.60 /CUMM) 0.4 0.4 Absolute Eosinophils (0.0 - 0.7 /CUMM) 0.1 0.1 Absolute Basophils (0.0 - 0.2 /CUMM) 0.1 0 PUBS MCHC (33.0 - 37.0 G/DL) 32.3 L 32.8 L Immunology Thyroglobulin Antibody (< 61 U/mL) < 15 Thyroid Peroxidase Ab (< 61 U/mL) > 1300 H Serology Lyme Disease Antibody (RATIO) 0.12 09/06 09/05 09/05 0020 1810 1750 Chemistry Troponin I (< 0.11 ng/ml) < 0.01 0.02 Cortisol PM Sample (1.7 - 14.1) 10.3 Toxicology Methadone Screen Cancelled Barbiturate Screen Cancelled Ur Phencyclidine Scrn Cancelled Amphetamines Screen Cancelled U Benzodiazepines Scrn Cancelled Urine Cocaine Screen Cancelled Urine Cannabis Screen Cancelled Urines Urine Color Cancelled Urine Clarity Cancelled Urine pH Cancelled Ur Specific Thorpe Cancelled Urine Protein Cancelled Urine Ketones Cancelled Urine Nitrite Cancelled Urine Bilirubin Cancelled Urine Urobilinogen Cancelled Ur Leukocyte Esterase Cancelled Ur Microscopic Cancelled Urine Hemoglobin Cancelled Urine Glucose Cancelled Imaging/Other Studies: CXR 09/05/2017: Large hiatal hernia accounts for the density in the retrocardiac area on the prior chest x-ray today. There is no acute change of the chest. Assessment/Plan Assessment: Ms. Velasco is an 87-year-old female with schizophrenia, hypertension, hypothyroidism, and chronic anemia who present to the hospital with bradycardia and hypotension. Patient was noted to have severe hypothyroidism. She was also noted to be anemic. She has had chronic anemia since 2014. In January 2017 her hemoglobin was noted to be around 8 to 9 with hematocrit of 24-30. Her platelet count and WBC has always been normal. Her hemoglobin dropped from 8.7 down to 7.5 on admission. Her hematocrit was 27.5 and dropped to 22.8. This has been stable and has not decreased. Her MCV was normal. Her reticulocyte count was 1.48% which is low. Bilirubin is within normal limits. Vitamin B12 was 724. Folate was 5.9. These were normal. LDH was normal. Ferritin was 11.3. Serum iron was 26. TIBC was 380. Per report stool guaiac was negative. She has no obvious bleeding. Tiffanie test was negative. On review of the blood work she does not seem to be having any hemolytic process. Her reticulocyte count suggest a hypoproliferative process. Iron studies suggest iron deficiency anemia. B12 and folate are within normal limits. The likely etiology for her underlying anemia is her hypothyroidism. Her anemia seems to start when she developed her hypothyroidism. Hypothyroidism has been known to cause a normocytic anemia. This is made worse by her iron deficiency. She should continue with iron supplementation. She may be transfused 1 unit of blood. This will increase her iron. She will need to have her thyroid monitor closely. Recommendations: Normocytic anemia: - continue oral iron 325 mg b.i.d. - treat underlying hypothyroidism - transfuse 1 unit of packed RBC - monitor CBC closely - may need outpatient endoscopy given age and iron deficiency Hypothyroidism: - follow up with Endocrinology - continue levothyroxine as Endocrinology Problem List: 1. Bradycardia 2. Hypotension 3. Thyroiditis 4. Anemia Other Findings/Comments: Please call [phone] with any questions or concerns. Consult Acknowledgment - Thank you for your consult request.
[2017-09-07 22:18] VITALS: BP 142/70
[2017-09-07 23:00] LABS: ABSOLUTE BASOPHIL COUNT 0 /CUMM (0.0-0.2); ABSOLUTE EOSINOPHIL COUNT 0 /CUMM (0.0-0.7); ABSOLUTE GRANULOCYTE CT 7.2 /CUMM (1.4-6.5); ABSOLUTE LYMPH COUNT 2.2 /CUMM (1.2-3.4); ABSOLUTE MONOCYTE COUNT 0.8 /CUMM (0.10-0.60); BASOPHIL % 0.2 % (0.0-2.0); EOSINOPHIL % 0.1 % (0-5); MEAN CORPUSCULAR HGB 26.8 PG (27.0-31.0); MEAN CORPUSCULAR HGB CONC 32.2 G/DL (33.0-37.0); MEAN CORPUSCULAR VOLUME 83.2 FL (81.0-99.0); MEAN PLATELET VOLUME 7.8 FL (7.4-10.4); PLATELET COUNT 267 /CUMM (130-400); RBC DISTRIBUTION WIDTH 15.4 % (11.5-14.5); RED BLOOD CELL CT 3.25 /CUMM (4.20-5.40)
[2017-09-07 23:28] LABS: WHITE BLOOD CELL COUNT 10.2 /CUMM (4.8-10.8)
[2017-09-07 23:29] LABS: GRANULOCYTE % 70.4 % (42.2-75.2)
[2017-09-08 06:36] VITALS: BP 120/60
--- NOTE | 2017-09-08 07:05 | PN- Housestaff ---
Melba MCCORMACK,Aisha 09/08/17 0705: Subjective Follow-up For: Anemia, hypothyroidism Complaints: no complaints Tele-Events Since Last Visit: Bradycardia heart rate 40 Subjective: Patient was seen and examined by me today. She offers no complaints. No overnight events. She says she slept well. She denies chest pain, chest pressure, vomiting, nausea, shortness of breath, headache. Review of Systems Constitutional: Reports: no symptoms. Cardiovascular: Reports: no symptoms. Respiratory: Reports: no symptoms. Gastrointestinal: Reports: no symptoms. Genitourinary: Reports: no symptoms. Musculoskeletal: Reports: no symptoms. Objective Last 24 Hrs of Vital Signs/I&O Vital Signs Date Time Temp Pulse Resp B/P B/P Pulse O2 O2 Flow FiO2 Mean Ox Delivery Rate 09/08 0636 98.6 59 20 120/60 96 09/07 2218 98.6 59 18 142/70 94 Room Air 09/07 1505 97.8 50 24 132/64 95 09/07 1400 97.8 50 24 132/64 95 Room Air Intake & Output 09/08 1600 09/08 0800 09/08 0000 Intake Total 110 200 Output Total Balance 110 200 Intake, IV 10 Intake, Oral 100 200 Physical Exam General Appearance: Alert, Oriented X3, Cooperative Cardiovascular: Regular Rate, Normal S1, Normal S2 Lungs: Clear to Auscultation, Normal Air Movement Abdomen: Normal Bowel Sounds, Soft, No Tenderness Neurological: Normal Speech, Strength at 5/5 X4 Ext, Normal Tone Extremities: No Edema Current Medications: Current Medications Sig/Fidelia Start time Last Medication Dose Route Stop Time Status Admin Acetaminophen 650 MG Q6P PRN 09/05 1630 AC PO Aspirin 81 MG DAILY 09/06 1000 AC 09/08 PO 0936 Atorvastatin Calcium 80 MG 1700 09/06 1700 AC 09/07 PO 1602 Cosyntropin 0.25 MG ONE ONE 09/07 1000 DC 09/07 IV 09/07 1001 1127 Enoxaparin Sodium 40 MG DAILY 09/06 1000 AC 09/08 SC 0935 Ferrous Sulfate 325 MG BID 09/07 1000 AC 09/08 PO 0936 Ibuprofen 600 MG Q6P PRN 09/05 1630 AC PO Levothyroxine Sodium 0.075 MG DAILY AC 09/09 0700 AC PO Levothyroxine Sodium 0.088 MG DAILY AC 09/06 0700 DC 09/08 PO 0613 Oxycodone/ 2 TAB Q6P PRN 09/05 1630 AC Acetaminophen PO Last 24 Hrs of Lab/Feroz Results Last 24 Hrs of Labs/Mics: Laboratory Tests 09/08/17 0634: Anion Gap 10, Estimated GFR > 60, BUN/Creatinine Ratio 25.0, CBC w Diff NO MAN DIFF REQ, RBC 3.13 L, MCV 83.1, MCH 27.0, RDW 15.5 H, MPV 8.4, Gran % 52.3, Lymphocytes % 34.7, Monocytes % 10.6 H, Eosinophils % 1.1, Basophils % 1.3, Absolute Granulocytes 3.9, Absolute Lymphocytes 2.6, Absolute Monocytes 0.8 H, Absolute Eosinophils 0.1, Absolute Basophils 0.1, PUBS MCHC 32.5 L 09/07/17 2226: CBC w Diff NO MAN DIFF REQ, RBC 3.25 L, MCV 83.2, MCH 26.8 L, RDW 15.4 H, MPV 7.8, Gran % 70.4, Lymphocytes % 21.2, Monocytes % 8.1, Eosinophils % 0.1, Basophils % 0.2, Absolute Granulocytes 7.2 H, Absolute Lymphocytes 2.2, Absolute Monocytes 0.8 H, Absolute Eosinophils 0, Absolute Basophils 0, PUBS MCHC 32.2 L 09/07/17 1400: CBC w Diff Cancelled, WBC Cancelled, RBC Cancelled, Hgb Cancelled, Hct Cancelled , MCV Cancelled, MCH Cancelled, RDW Cancelled, Plt Count Cancelled, MPV Cancelled, PUBS MCHC Cancelled 09/07/17 1230: Cortisol PM Sample 35.7 H 09/07/17 1200: Cortisol PM Sample 29.0 H, CBC w Diff Cancelled, WBC Cancelled, RBC Cancelled, Hgb Cancelled, Hct Cancelled, MCV Cancelled, MCH Cancelled, RDW Cancelled, Plt Count Cancelled, MPV Cancelled, PUBS MCHC Cancelled Assessment/Plan Assessment: 87 year-old female with past medical history of hypertension, hypothyroidism, schizophrenia was referred from church administrator office with Hypotension and bradycardia. Patient was admitted in telemetry for further evaluation and management Problem list 1. Bradycardia for evaluation 2. Hypertension 3. Schizophrenia 4. Hypothyroidism 5. Anemia Assessment and plan 1. Bradycardia - * Secondary due to beta raeann/antipsychotic/hypothyroidism. Her heart rate improving today. Her heart rate today is 59. She has no symptoms. Her repeat TSH yesterday was 4.5. Her thyroxine dose was decreased from 88 g to 75 g today as per endocrinology. If she has continued improvement most likely we will discharge her to short-term rehabilitation tomorrow. * Her cosyntropin stimulation showed a normal response. We will keep pacer pads available at bedside and if patient has continued to have bradycardia we will consider atropine. Patient will be followed by deputy of counter intelligence today. We will continue her aspirin and atorvastatin. 2. Hypertension * We will hold her metoprolol in view of hypotension. Patient blood pressure is stable. Her blood pressure today is 120/60 3. Schizophrenia * We will continue holding ziprasidone, risperidone. 4. Hypothyroidism * Her levothyroxine dose was decreased to 75 g today as per endocrinology since her TSH decreased from 12-4.5. 5. Anemia * Patient has an acute drop of hemoglobin since admission. She had 1 unit of blood transfusion after hemoglobin of 7 which improved to 8.7 yesterday. Her anemia workup for hemolysis/hypothyroidism was normal. Her vitamin B12 and folic acid level were normal. Her anemia can be secondary due to hypothyroidism which causes normocytic and normochromic anemia or any gi bleed though she was guaiac was negative. Hematology and oncology follow-up appreciated. GI consult placed. Code-DNR/DNI Diet-heart healthy diet DVT prophylaxis-Lovenox Plan-for possible discharge tomorrow to short-term rehabilitation. Patient is to repeat the thyroid function tests on September 15, September 29, October 13 and follow-up with her church administrator and primary care physician. Problem List: 1. Anemia 2. Bradycardia 3. Hypotension 4. Hypothyroid Pain Ratin Pain Location: none Pain Goal: Remain pain free Pain Plan: tylenol Tomorrow's Labs & Rationales: Myah Hawk MD 09/08/17 0913: Attending MD Review Statement Attending Statement Attending Statement: examined this patient, discuss w/resident/PA/[employer]UD[employer] PROFESSOR, agreed w/resident/PA/[employer]UD[employer] PROFESSOR, reviewed EMR data (avail), discussed with nursing, discussed with case mgmt, amended to note Attending Assessment/Plan: Patient seen and examined. Resting comfortably not in any acute distress. No issues overnight. No events on telemetry. She has occasional bradycardia while asleep in the 30s heart rate is predominantly in the 50s. She remains asymptomatic. She did receive a units of blood yesterday. Hemoglobin level improved to 8.7 yesterday. Currently 8.4. Problems: 1. Bradycardia; multifactorial. Secondary to beta-raeann therapy and hypothyroidism. 2. Anemia; appears to be secondary to hypo-proliferation. 3. Hypothyroidism; markedly elevated thyroperoxidase antibody is suggestive of thyroiditis. Plan: -Heart rate is improving. Certainly there is no indication for pacemaker placement at present. -Continue to hold beta-raeann therapy. Continue to optimize control of her hypothyroidism and monitor for improvement of heart rate. -TSH has been steadily decreasing since adjustment of her levothyroxine dose as an outpatient. Her free T4 however is now on the rise. Followed by the endocrinology service appreciated. Her levothyroxine dose will decrease. Further management will be done in the outpatient setting. -Patient is guaiac negative and also suggestive of an acute gastrointestinal bleed at present. However it appears she has tested were positive in the past and refuses colonoscopy at that time. A low reticulocyte count is suggestive of a hypoproliferative state probably due to her hypothyroidism. She did receive a unit of blood yesterday with improvement of her hemoglobin level. Monitor patient in the hospital overnight. If hemoglobin level remained stable she may be discharged tomorrow. -Due to her deconditioning for physical therapy service is recommending discharge to [facility] for [facility] rehabilitation. Patient is in agreement with this plan.
--- NOTE | 2017-09-08 07:37 | PN- Hematology ---
Subjective Subjective: She received one unit pRBC yesterday. She states she feels a little better. Although, she does report she is still getting blood transfusion. She denies any new pain. She has no fever or chills. Review of Systems Constitutional: Denies: chills, fever. Cardiovascular: Denies: chest pain. Gastrointestinal: Denies: abdominal pain. Musculoskeletal: Denies: back pain. Neurological/Psychological: Reports: confusion. Hematologic/Endocrine: Denies: bruising, bleeding. All Other Systems: Reviewed and Negative Objective Vital Signs and I&Os Vital Signs Date Time Temp Pulse Resp B/P B/P Pulse O2 O2 Flow FiO2 Mean Ox Delivery Rate 09/08 0636 98.6 59 20 120/60 96 09/07 2218 98.6 59 18 142/70 94 Room Air 09/07 1505 97.8 50 24 132/64 95 09/07 1400 97.8 50 24 132/64 95 Room Air Intake & Output 09/08 0800 09/08 0000 09/07 1600 09/07 0800 09/07 0000 09/06 1600 Intake Total 110 200 500 100 480 700 Output Total Balance 110 200 500 100 480 700 Intake, IV 10 Intake, Oral 100 200 500 100 480 700 Number 1 1 1 2 Bowel Movements Patient 59.874 kg Weight Physical Exam: General Appearance: no apparent distress, awake, comfortable, thin Head: normal appearance Ears, Nose, Throat: normal pharynx Respiratory: chest non-tender, no respiratory distress, quiet respiration, crackles Cardiovascular: murmur, bradycardia Gastrointestinal: normal bowel sounds, soft, non-tender Extremities: no edema Neurologic/Psych: awake, alert, disoriented to time/date/year Skin: intact, warm/dry Current Medications: Current Medications Sig/Fidelia Start time Last Medication Dose Route Stop Time Status Admin Acetaminophen 650 MG Q6P PRN 09/05 1630 AC PO Aspirin 81 MG DAILY 09/06 1000 AC 09/07 PO 0811 Atorvastatin Calcium 80 MG 1700 09/06 1700 AC 09/07 PO 1602 Cosyntropin 0.25 MG ONE ONE 09/07 1000 DC 09/07 IV 09/07 1001 1127 Enoxaparin Sodium 40 MG DAILY 09/06 1000 AC 09/07 SC 0811 Ferrous Sulfate 325 MG BID 09/07 1000 AC 09/07 PO 2110 Ferrous Sulfate 325 MG DAILY 09/06 1118 DC 09/07 PO 0811 Ibuprofen 600 MG Q6P PRN 09/05 1630 AC PO Levothyroxine Sodium 0.088 MG DAILY AC 09/06 0700 AC 09/08 PO 0613 Oxycodone/ 2 TAB Q6P PRN 09/05 1630 AC Acetaminophen PO Results Last 24 Hours of Lab Results: Laboratory Tests 09/08 09/07 09/07 0634 2226 1400 Chemistry Sodium Pending Potassium Pending Chloride Pending Carbon Dioxide Pending Anion Gap Pending BUN Pending Creatinine Pending BUN/Creatinine Ratio Pending Hematology CBC w Diff Pending NO MAN DIFF REQ Cancelled WBC (4.8 - 10.8 /CUMM) Pending 10.2 Cancelled RBC (4.20 - 5.40 /CUMM) Pending 3.25 L Cancelled Hgb (12.0 - 16.0 G/DL) Pending 8.7 L Cancelled Hct (37 - 47 %) Pending 27.0 L Cancelled MCV (81.0 - 99.0 FL) Pending 83.2 Cancelled MCH (27.0 - 31.0 PG) Pending 26.8 L Cancelled RDW (11.5 - 14.5 %) Pending 15.4 H Cancelled Plt Count (130 - 400 /CUMM) Pending 267 Cancelled MPV (7.4 - 10.4 FL) Pending 7.8 Cancelled Gran % (42.2 - 75.2 %) 70.4 Lymphocytes % (20.5 - 51.1 %) 21.2 Monocytes % (1.7 - 9.3 %) 8.1 Eosinophils % (0 - 5 %) 0.1 Basophils % (0.0 - 2.0 %) 0.2 Absolute Granulocytes (1.4 - 6.5 /CUMM) 7.2 H Absolute Lymphocytes (1.2 - 3.4 /CUMM) 2.2 Absolute Monocytes (0.10 - 0.60 /CUMM) 0.8 H Absolute Eosinophils (0.0 - 0.7 /CUMM) 0 Absolute Basophils (0.0 - 0.2 /CUMM) 0 PUBS MCHC (33.0 - 37.0 G/DL) Pending 32.2 L Cancelled 09/07 09/07 1230 1200 Chemistry Cortisol PM Sample (1.7 - 14.1) 35.7 H 29.0 H Hematology CBC w Diff Cancelled WBC Cancelled RBC Cancelled Hgb Cancelled Hct Cancelled MCV Cancelled MCH Cancelled RDW Cancelled Plt Count Cancelled MPV Cancelled PUBS MCHC Cancelled Assessment/Plan Assessment/Recommendations: Ms. Velasco is an 87-year-old female with schizophrenia, hypertension, hypothyroidism, and chronic anemia who present to the hospital with bradycardia and hypotension. Patient was noted to have severe hypothyroidism. She was also noted to be anemic. She has had chronic anemia since 2014. In January 2017 her hemoglobin was noted to be around 8 to 9 with hematocrit of 24-30. Her platelet count and WBC has always been normal. Her hemoglobin dropped from 8.7 down to 7.5 on admission. Her hematocrit was 27.5 and dropped to 22.8. This has been stable and has not decreased. Her MCV was normal. Her reticulocyte count was 1.48% which is low. Bilirubin is within normal limits. Vitamin B12 was 724. Folate was 5.9. These were normal. LDH was normal. Ferritin was 11.3. Serum iron was 26. TIBC was 380. Per report stool guaiac was negative. She has no obvious bleeding. Tiffanie test was negative. Review of her previous records, she has had blood in stool and declined work up with endoscopy/colonoscopy. She will need to have these evaluation. Blood work does not seem to suggest a hemolytic process (Tiffanie negative, normal LDH, normal bilirubin). She has low reticulocyte count suggesting a hypoproliferative process. Iron studies suggest iron deficiency. Overall, she has BENJAMIN and hypothyroidism. Both will cause a hypoproliferative anemia. She is getting iron supplementation and being treated for thyroiditis. Normocytic anemia: - continue oral iron 325 mg b.i.d. - treat underlying hypothyroidism - monitor CBC closely - may need outpatient endoscopy/colonoscopy given age and iron deficiency Hypothyroidism: - follow up with Endocrinology - continue levothyroxine as Endocrinology Please call [phone] with any questions or concerns. Problem List: 1. Anemia 2. Hypotension 3. Thyroiditis
[2017-09-08 08:08] LABS: ABSOLUTE BASOPHIL COUNT 0.1 /CUMM (0.0-0.2); ABSOLUTE EOSINOPHIL COUNT 0.1 /CUMM (0.0-0.7); ABSOLUTE GRANULOCYTE CT 3.9 /CUMM (1.4-6.5); ABSOLUTE LYMPH COUNT 2.6 /CUMM (1.2-3.4); ABSOLUTE MONOCYTE COUNT 0.8 /CUMM (0.10-0.60); BASOPHIL % 1.3 % (0.0-2.0); EOSINOPHIL % 1.1 % (0-5); GRANULOCYTE % 52.3 % (42.2-75.2); MEAN CORPUSCULAR HGB CONC 32.5 G/DL (33.0-37.0); MEAN CORPUSCULAR VOLUME 83.1 FL (81.0-99.0); MEAN PLATELET VOLUME 8.4 FL (7.4-10.4); PLATELET COUNT 255 /CUMM (130-400); RBC DISTRIBUTION WIDTH 15.5 % (11.5-14.5); RED BLOOD CELL CT 3.13 /CUMM (4.20-5.40); WHITE BLOOD CELL COUNT 7.4 /CUMM (4.8-10.8)
--- NOTE | 2017-09-08 08:27 | PN- Endocrinology ---
Assessment/Plan Assessment: 87 y/o female with PMHsignificant for schizophrenia and hypothyroidism, was referred to ER for evaluation after she was found to be hypotensive and bradycardic. In addition, she is anemic. She received transfusion on 09/07/2017. Now she is on iron supplement. She has been on Levothyroxine 88 mcg daily. Her TFT has been improving since with TSH from 53 down to 12. 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 Repeat am cortisol was 10.5 which is normal. However, ACTH stimulation test was done as well--- 30 mins cortisol 29, 60 mins cortisol 35.7. On 09/07/2017, Repeat TSH was 4.52 and free T4 was 1.96. Plan: 1. as the repeat free T4 is higher than the normal range, I have recommended decreasing Levothyroxine to 75 mcg daily for now. 2. monitor TFT in one week and then every 2 weeks x 2 times; please forward reports to my office for review and then her thyroid nmedication will be adjusted accordingly. 3. f/u in office after discharge. Subjective Subjective: She stated that she feels well. Objective Last 24 Hrs of Vital Signs/I&O Vital Signs Date Time Temp Pulse Resp B/P B/P Pulse O2 O2 Flow FiO2 Mean Ox Delivery Rate 09/08 0636 98.6 59 20 120/60 96 09/07 2218 98.6 59 18 142/70 94 Room Air 09/07 1505 97.8 50 24 132/64 95 09/07 1400 97.8 50 24 132/64 95 Room Air Intake & Output 09/08 1600 09/08 0800 09/08 0000 Intake Total 110 200 Output Total Balance 110 200 Intake, IV 10 Intake, Oral 100 200 Results Pertinent Lab/Feroz Results: Laboratory Tests 09/08 09/07 09/07 0634 2226 1400 Chemistry Sodium Pending Potassium Pending Chloride Pending Carbon Dioxide Pending Anion Gap Pending BUN Pending Creatinine Pending BUN/Creatinine Ratio Pending Hematology CBC w Diff Pending NO MAN DIFF REQ Cancelled WBC (4.8 - 10.8 /CUMM) Pending 10.2 Cancelled RBC (4.20 - 5.40 /CUMM) Pending 3.25 L Cancelled Hgb (12.0 - 16.0 G/DL) Pending 8.7 L Cancelled Hct (37 - 47 %) Pending 27.0 L Cancelled MCV (81.0 - 99.0 FL) Pending 83.2 Cancelled MCH (27.0 - 31.0 PG) Pending 26.8 L Cancelled RDW (11.5 - 14.5 %) Pending 15.4 H Cancelled Plt Count (130 - 400 /CUMM) Pending 267 Cancelled MPV (7.4 - 10.4 FL) Pending 7.8 Cancelled Gran % (42.2 - 75.2 %) 70.4 Lymphocytes % (20.5 - 51.1 %) 21.2 Monocytes % (1.7 - 9.3 %) 8.1 Eosinophils % (0 - 5 %) 0.1 Basophils % (0.0 - 2.0 %) 0.2 Absolute Granulocytes (1.4 - 6.5 /CUMM) 7.2 H Absolute Lymphocytes (1.2 - 3.4 /CUMM) 2.2 Absolute Monocytes (0.10 - 0.60 /CUMM) 0.8 H Absolute Eosinophils (0.0 - 0.7 /CUMM) 0 Absolute Basophils (0.0 - 0.2 /CUMM) 0 PUBS MCHC (33.0 - 37.0 G/DL) Pending 32.2 L Cancelled 09/07 09/07 09/07 1230 1200 0624 Chemistry Total Bilirubin (0.2 - 1.3 mg/dL) 0.3 Lactate Dehydrogenase (313 - 618 U/L) 414 Vitamin B12 (239 - 931 pg/mL) 724 Folate (2.76 - 20.0 ng/mL) 5.9 TSH (0.270 - 4.200 uIU/mL) 4.520 H Free T4 (0.85 - 1.93 ng/dL) 1.96 H Cortisol AM Sample (4.46 - 22.7 ug/dL) 10.5 Cortisol PM Sample (1.7 - 14.1) 35.7 H 29.0 H Hematology CBC w Diff Cancelled MAN DIFF ORDERED WBC (4.8 - 10.8 /CUMM) Cancelled 4.2 L RBC (4.20 - 5.40 /CUMM) Cancelled 2.69 L Hgb (12.0 - 16.0 G/DL) Cancelled 7.0 *L Hct (37 - 47 %) Cancelled 22.2 L MCV (81.0 - 99.0 FL) Cancelled 82.7 MCH (27.0 - 31.0 PG) Cancelled 26.1 L RDW (11.5 - 14.5 %) Cancelled 15.7 H Plt Count (130 - 400 /CUMM) Cancelled 263 MPV (7.4 - 10.4 FL) Cancelled 8.4 Gran % (42.2 - 75.2 %) 39.4 L Lymphocytes % (20.5 - 51.1 %) 47.9 Monocytes % (1.7 - 9.3 %) 9.3 Eosinophils % (0 - 5 %) 2.8 Basophils % (0.0 - 2.0 %) 0.6 Absolute Granulocytes (1.4 - 6.5 /CUMM) 1.7 Segmented Neutrophils (42.2 - 75.2 %) 49 Absolute Lymphocytes (1.2 - 3.4 /CUMM) 2.0 Lymphocytes (20.5 - 51.1 %) 38 Monocytes (1.7 - 9.3 %) 8 Absolute Monocytes (0.10 - 0.60 /CUMM) 0.4 Eosinophils (0 - 5.0 %) 5 Absolute Eosinophils (0.0 - 0.7 /CUMM) 0.1 Absolute Basophils (0.0 - 0.2 /CUMM) 0 Platelet Estimate (ADEQUATE) VERIFIED BY SMEAR Hypochromic-Microcytic 1+ Poikilocytosis 1+ Anisocytosis 1+ PUBS MCHC (33.0 - 37.0 G/DL) Cancelled 31.6 L 09/07 09/06 0600 1821 Hematology CBC w Diff NO MAN DIFF REQ WBC (4.8 - 10.8 /CUMM) 7.1 RBC (4.20 - 5.40 /CUMM) 2.84 L Hgb (12.0 - 16.0 G/DL) 7.6 L Hct (37 - 47 %) 23.6 L MCV (81.0 - 99.0 FL) 83.1 MCH (27.0 - 31.0 PG) 26.9 L RDW (11.5 - 14.5 %) 15.3 H Plt Count (130 - 400 /CUMM) 274 MPV (7.4 - 10.4 FL) 8.1 Gran % (42.2 - 75.2 %) 59.1 Lymphocytes % (20.5 - 51.1 %) 32.4 Monocytes % (1.7 - 9.3 %) 6.3 Eosinophils % (0 - 5 %) 1.5 Basophils % (0.0 - 2.0 %) 0.7 Absolute Granulocytes (1.4 - 6.5 /CUMM) 4.2 Absolute Lymphocytes (1.2 - 3.4 /CUMM) 2.3 Absolute Monocytes (0.10 - 0.60 /CUMM) 0.4 Absolute Eosinophils (0.0 - 0.7 /CUMM) 0.1 Absolute Basophils (0.0 - 0.2 /CUMM) 0.1 PUBS MCHC (33.0 - 37.0 G/DL) 32.3 L Haptoglobin Pending
--- NOTE | 2017-09-08 08:29 | Patient Discharge Instructions ---
Discharge Instructions General Discharge Information You were seen/treated for: Bradycardia, hypothyroidism, anemia, You had these procedures: Single-chamber pacemaker on 12 of September. Watch for these problems: In case of dizziness, lightheadedness, chest pain, chest pressure, palpitation, shortness of breath, weakness please go to the nearest ER. Do not soak the wound: Yes Daily wet to dry dressings: Yes No bath, but you may shower: Yes Other wound care: Regular wound care. Patient doesn't have any eliot/stitches. Special Instructions: Please follow-up with your primary care provider within 1-2 weeks of discharge and let them know about your recent admission at [facility]. Please follow-up with your inker and opaquer within 1-2 weeks of discharge and let them know about your recent admission at [facility]. Please be aware that your metoprolol and levothyroxine dose has been changed. Please follow-up with the coat feller within 1-2 weeks of discharge and let them know about your recent admission at [facility]. *Please take the medication as directed. Please follow up with your PCP regarding the starting your mental health medications. Please do a repeat thyroid function test within 2-3 weeks of discharge and follow up with your endocrinology doctor. Diet Continue normal diet: No Recommended Diet: Heart Healthy Activity Full Activity/No Limits: No Activity Self Limited: Yes Acute Coronary Syndrome Inclusion Criteria At DC or during hospital stay patient has or had the following: ACS DIAGNOSIS No Discharge Core Measures Meds if any: Prescribed or Continued at Discharge Meds if any: NOT Prescribed or Continued at Discharge Congestive Heart Failure Inclusion Criteria At DC or during hospital stay patient has or had the following: CHF DIAGNOSIS No Discharge Core Measures Meds if any: Prescribed or Continued at Discharge Meds if any: NOT Prescribed or Continued at Discharge Cerebrovascular accident Inclusion Criteria At DC or during hospital stay patient has or had the following: CVA/TIA Diagnosis No Discharge Core Measures Meds if any: Prescribed or Continued at Discharge Meds if any: NOT Prescribed or Continued at Discharge Venous thromboembolism Inclusion Criteria VTE Diagnosis No VTE Type NONE VTE Confirmed by (Test) NONE Discharge Core Measures - Per Current guidelines, there needs to be overlap - treatment for the first 5 days of Warfarin therapy. - If discharged on Warfarin prior to 5 days of - overlap therapy, the patient will need to be - assessed for post discharge needs including - *Post discharge parental anticoagulation - *Warfarin and/or parental anticoagulation education - *Follow up date to check INR post discharge At least 5 days overlap therapy as Inpatient No Meds if any: Prescribed or Continued at Discharge Note: Overlap Therapy is Warfarin and Anticoagulant Meds if any: NOT Prescribed or Continued at Discharge
[2017-09-08] MEDS ORDERED: FERROUS SULFAT325 M2 PO (08:31)
[2017-09-08] MEDS ORDERED: SYNTHROID88 MCG PO (09:11)
[2017-09-08] MEDS ORDERED: LEVOTHYROXINE75 MCG PO (09:13)
--- NOTE | 2017-09-08 09:37 | Discharge Summary ---
Visit Information Visit Dates Admission Date: 09/05/17 Discharge Date: 09/13/17 Hospital Course Course Attending Physician: Myah Ortega MD Primary Care Physician: Deya MCCORMACK,[facility] Course: Ms. Velasco is a pleasant 87-year-old female with past medical history of hypertension, hypothyroidism, remote history of schizophrenia and SLE not taking steroids since 10 years, was referred by her personnel director's office for bradycardia, heart rate at 40s, and blood pressure of 90/30 for further management. She was found to have hypothyroidism with TSH of 11.5, for which she was already on a increased level of levothyroxine 88 g prescribed by her personnel director as her TSH on 08/04/2017 was 53. She was admitted to telemetry floor and cardiology consultation was also placed. She responded well to IV levothyroxine 50 g and later PO levothyroxine at 88 g daily and her TSH subsequently came down to 4.5 on 09/07/2017. Her bradycardia was secondary to hypothyroidism and was responding well to the levothyroxine. Her levothyroxine dose was decreased to 70 g as per endocrinology. On day 4 of admission patient was transferred to the ICU for atrial fibrillation , and received metoprolol for it. She had two episodes of asystole of 5 s and 12 s after she was administered w/ metoprolol 2.5mg intravenously for the tx of Atrial fibrillation w/ RVR( HR ~140s). As per the pt, she was asymptomatic at all times, and did not have any CP/palpitations/SOB/lightheadedness. Transcutaneous pacer pads were immediately placed set to demand at 40 bpm with current output set to 40 mA. She was paced at several occasions, while she was in the ICU, but remained asymptomatic. Etiology for her transient bradycardia was thought of being multifactorial- drugs such as anti-psychotics, betablockers , and hypothyroidism. She remained in NSR, but occasionally flipped towards being in Afib transiently. After discussing w/ the digital marketing consultant, Dr. Jordan anticoagulation was started since she has high [id number] score. She remained hemodynamically stable, and TTE revealed normal LV function with LVH, aortic sclerosis w/o stenosis, and no pulm HTN. It was ascertained that she would likely benefit from a PPM for the tx of sick sinus syndrome besides discontinuing the offending drugs if any, although she was completely asymptomatic at all times, which is a one of the primary indications for a PPM placement. Considering her mental health issues, it wasnt sure if she was able to clearly report the symptoms. After reviewing the risks vs benefits of placement of a pacemaker with the pts POA (pt was unable to make decision ), single chamber PPM was placed by our CT surgeon, Dr Fink without any complications. Postoperative course was uneventful. Patient was started on Eliquis 5 mg twice a day, and her metoprolol dose was increased to 25 mg twice a day. The same was discussed with digital marketing consultant and her daughter over the phone. Patient advised to follow-up with the digital marketing consultant, personnel director with a repeat thyroid function text in 2-3 weeks, primary care physician within one week. September 05 Chest x-ray Large hiatal hernia accounts for the density in the retrocardiac area on the prior chest x-ray today. There is no acute change of the chest. Echocardiogram September 12 Normal left ventricular systolic function with moderate concentric hypertrophy. Aortic Sclerosis without stenosis. No significant Pulmonary hypertension. September 12 chest x-ray Interval placement of a pacemaker. There is mild pulmonary vascular congestion, no evidence of pneumothorax. Complications: None Allergies: Coded Allergies: No Known Allergies (09/05/17) Significant Procedures: Single chamber permanent pacemaker placed on September [address] Gómez Fink. Surgery Date: 09/12/17 Name of Procedure: MRI compatible VVI pacemaker Pre-Operative Diagnosis: Tachybradycardia syndrome with symptomatic bradycardia Post-Operative Diagnosis: Same Estimated Blood Loss: scant Surgeon/Rn Relief Charge: Gómez Fink Anesthesia: local monitored anesthesi Operative/Procedure Note Note: After placement of monitoring lines patient's left chest and shoulder area were prepped and draped in a sterile fashion. 1% lidocaine is used local anesthetic. Incision was made in the deltopectoral groove and carried down to pre- pectoralis fascia. The deltopectoral groove was explored and there was no cephalic vein found. The patient was then placed in Trendelenburg position and the subclavian vein was cannulated with a needle and a wire was passed into the right atrium. Sheath dilator was passed over the wire and a Medtronic pacemaker lead model # [id number] was then advanced into the pulmonary outflow track under fluoroscopic guidance. It was withdrawn into the right ventricular chamber and positioned at the apex. R waves were sensed at 5.1 mV. The pacing threshold was at 0.4 V with a current of 0.3 mA and an impedance of 1571 ohms. The leads were secured to the soft tissue and pectoralis fascia with Ethibond sutures. A pacemaker pocket was then made with electrocautery. Hemostasis was achieved with electrocautery. The pocket was irrigated with antibiotic irrigation. The lead was then connected to a MRI compatible single chamber Medtronic pacemaker. The pocket was closed with a running Vicryl suture followed by running Vicryl subcuticular suture. It was dressed with a dry sterile dressing and a pressure dressing. The patient tolerated the procedure well and was brought to the recovery room in stable condition. CC: Kosta MCCORMACK,John Valdes DICTATED BY: Aleks Harrington MD,Gómez Casarez DATE/TIME DICTATED:09/12/171550 SCALER PACKER:TOM DATE/TIME TRANSCRIBED:09/12/171550 REPORT NUMBER:[id number] CONFIDENTIAL, DO NOT COPY WITHOUT APPROPRIATE AUTHORIZATION. <Electronically signed by Gómez Fink Jr., MD> 09/12/17 1555 Pertinent Lab Results: Laboratory Tests TSH level: September 07, : 4.5 September 05, 18: 12.0 August 31, 18: 11.5 August 10,17: 20.1 August 04, 17: 53.5 May 11, 17: 6.1 April 10, 17: 4.1 09/08/17 0634: Anion Gap 10, Estimated GFR > 60, BUN/Creatinine Ratio 25.0, CBC w Diff NO MAN DIFF REQ, RBC 3.13 L, MCV 83.1, MCH 27.0, RDW 15.5 H, MPV 8.4, Gran % 52.3, Lymphocytes % 34.7, Monocytes % 10.6 H, Eosinophils % 1.1, Basophils % 1.3, Absolute Granulocytes 3.9, Absolute Lymphocytes 2.6, Absolute Monocytes 0.8 H, Absolute Eosinophils 0.1, Absolute Basophils 0.1, PUBS MCHC 32.5 L 09/07/17 2226: CBC w Diff NO MAN DIFF REQ, RBC 3.25 L, MCV 83.2, MCH 26.8 L, RDW 15.4 H, MPV 7.8, Gran % 70.4, Lymphocytes % 21.2, Monocytes % 8.1, Eosinophils % 0.1, Basophils % 0.2, Absolute Granulocytes 7.2 H, Absolute Lymphocytes 2.2, Absolute Monocytes 0.8 H, Absolute Eosinophils 0, Absolute Basophils 0, PUBS MCHC 32.2 L 09/07/17 1230: Cortisol PM Sample 35.7 H Disposition Summary Disposition Principal Diagnosis: Sick sinus syndrome. Paroxysmal atrial fibrillation Hypothyroidism. Acute on chronic anemia. Additional Diagnosis: Schizophrenia. Discharge Disposition: SNF Discharge Instructions General Discharge Information Code Status: Do Not Resucitate/Intubat Patient's Diet: Regular diet Patient's Activity: Wheelchair-bound Follow-Up Instructions/Appts: Please follow-up with your primary care provider within 1-2 weeks of discharge and let them know about your recent admission at [facility]. Please follow-up with your digital marketing consultant within 1-2 weeks of discharge and let them know about your recent admission at [facility]. Please follow-up with the personnel director within 1-2 weeks of discharge and let them know about your recent admission at [facility]. *Please take the medication as directed. Please follow up with your PCP regarding the starting your mental health medications. Please do a repeat thyroid function test within 1-2 weeks. Patient is to follow-up with the hematology service as an outpatient. Patient is also to follow-up with the gastroenterology service for further workup for anemia. She will likely require endoscopy/colonoscopy if okay with the power of transactional attorney. Medications at Discharge Discharge Medications: Stop taking the following medications: Levothyroxine Sodium (Levothyroxine Sodium) 88 MCG TABLET ORAL DAILY Metoprolol Tartrate (Metoprolol Tartrate) 25 MG TABLET ORAL TWICE DAILY Continue taking these medications: Aspirin (Aspirin*) 81 MG TAB.CHEW 1 Tablet ORAL DAILY Comments: Last Taken:09/09/17 Time:830AM Atorvastatin Calcium (Lipitor) 80 MG TABLET 1 Tablet ORAL DAILY Comments: Last Taken:09/12/17 Time:430PM Risperidone (Risperdal) 3 MG TABLET 1 Tablet ORAL Every night Comments: NOT TAKEN Ziprasidone HCl (Geodon) 40 MG CAPSULE 1 Capsule ORAL TWICE DAILY Comments: Last Taken:09/13/17 Time:8AM Start taking the following new medications: Ferrous Sulfate (Ferrous Sulfate) 325 MG (65 MG IRON) TABLET.DR 325 Milligram ORAL TWICE DAILY Qty = 60 No Refills Comments: Last Taken:09/13/17 Time:8AM Levothyroxine Sodium (Levothyroxine Sodium) 75 MCG TABLET 1 Tablet ORAL DAILY Qty = 30 No Refills Comments: Last Taken:09/13/17 Time:6AM Metoprolol Succinate (Metoprolol Succinate) 25 MG TAB 1 Tablet ORAL TWICE DAILY Qty = 60 No Refills Comments: METOPROLOL TARTRATE 12.5 MG ADMINISTERED BID, REMOVED AND REPLACED WITH METOPROLOL SUCCINATE 25MG DAILY FOR LONG ACTING COVEREAGE Apixaban (Eliquis) 2.5 MG TABLET 1 Tablet ORAL TWICE DAILY Qty = 60 No Refills Copies To: Deya MCCORMACK,Maria Alejandra; Gustabo MCCORMACK,Lou Attending MD Review Statement Documenting Attending: Myah Ortega MD Other Findings: Discharged in stable condition. Discharged in stable condition.
--- NOTE | 2017-09-08 11:38 | PN- Cardiology ---
Subjective Subjective: The patient is awoken, lethargic The events of the last 24 hours as well as telemetry were reviewed. Review of Systems: A full review of systems cannot be obtained secondary to the patient's mental state Objective Vital Signs and I&Os Vital Signs Date Time Temp Pulse Resp B/P B/P Pulse O2 O2 Flow FiO2 Mean Ox Delivery Rate 09/08 0636 98.6 59 20 120/60 96 09/07 2218 98.6 59 18 142/70 94 Room Air 09/07 1505 97.8 50 24 132/64 95 09/07 1400 97.8 50 24 132/64 95 Room Air Intake & Output 09/08 1600 09/08 0800 09/08 0000 09/07 1600 09/07 0800 09/07 0000 Intake Total 110 200 500 100 480 Output Total Balance 110 200 500 100 480 Intake, IV 10 Intake, Oral 100 200 500 100 480 Number 1 1 1 Bowel Movements Physical Exam: General: Nontoxic, no apparent distress. HEENT: Sclera and conjunctiva within normal limits, without xanthelasmas. Neck: Carotids 2+ without bruits. Respiratory: Scattered rhonchi, air movement is good, without accessory respiratory muscle use. Heart: Regular rate and rhythm, 2/6 systolic ejection murmur left sternal border , without JVD. Abdomen: Soft, nontender, no masses, normoactive bowel sounds. Extremities: Without clubbing, cyanosis, without edema. Neuro: Nonfocal exam, strength, 5 out of 5 Skin: Within normal limits without lesions. Psych: Mood and affect: Normal Current Medications: Current Medications Sig/Fidelia Start time Last Medication Dose Route Stop Time Status Admin Acetaminophen 650 MG Q6P PRN 09/05 1630 AC PO Aspirin 81 MG DAILY 09/06 1000 AC 09/08 PO 0936 Atorvastatin Calcium 80 MG 1700 09/06 1700 AC 09/07 PO 1602 Enoxaparin Sodium 40 MG DAILY 09/06 1000 AC 09/08 SC 0935 Ferrous Sulfate 325 MG BID 09/07 1000 AC 09/08 PO 0936 Ibuprofen 600 MG Q6P PRN 09/05 1630 AC PO Levothyroxine Sodium 0.075 MG DAILY AC 09/09 0700 AC PO Levothyroxine Sodium 0.088 MG DAILY AC 09/06 0700 DC 09/08 PO 0613 Oxycodone/ 2 TAB Q6P PRN 09/05 1630 AC Acetaminophen PO Results Last 48 Hrs of Labs/Mics: Laboratory Tests 09/08/17 0634: Anion Gap 10, Estimated GFR > 60, BUN/Creatinine Ratio 25.0, CBC w Diff NO MAN DIFF REQ, RBC 3.13 L, MCV 83.1, MCH 27.0, RDW 15.5 H, MPV 8.4, Gran % 52.3, Lymphocytes % 34.7, Monocytes % 10.6 H, Eosinophils % 1.1, Basophils % 1.3, Absolute Granulocytes 3.9, Absolute Lymphocytes 2.6, Absolute Monocytes 0.8 H, Absolute Eosinophils 0.1, Absolute Basophils 0.1, PUBS MCHC 32.5 L 09/07/17 2226: CBC w Diff NO MAN DIFF REQ, RBC 3.25 L, MCV 83.2, MCH 26.8 L, RDW 15.4 H, MPV 7.8, Gran % 70.4, Lymphocytes % 21.2, Monocytes % 8.1, Eosinophils % 0.1, Basophils % 0.2, Absolute Granulocytes 7.2 H, Absolute Lymphocytes 2.2, Absolute Monocytes 0.8 H, Absolute Eosinophils 0, Absolute Basophils 0, PUBS MCHC 32.2 L 09/07/17 1400: CBC w Diff Cancelled, WBC Cancelled, RBC Cancelled, Hgb Cancelled, Hct Cancelled , MCV Cancelled, MCH Cancelled, RDW Cancelled, Plt Count Cancelled, MPV Cancelled, PUBS MCHC Cancelled 09/07/17 1230: Cortisol PM Sample 35.7 H 09/07/17 1200: Cortisol PM Sample 29.0 H, CBC w Diff Cancelled, WBC Cancelled, RBC Cancelled, Hgb Cancelled, Hct Cancelled, MCV Cancelled, MCH Cancelled, RDW Cancelled, Plt Count Cancelled, MPV Cancelled, PUBS MCHC Cancelled 09/07/17 0624: Total Bilirubin 0.3, Lactate Dehydrogenase 414, Vitamin B12 724, Folate 5.9, TSH 4.520 H, Free T4 1.96 H, Cortisol AM Sample 10.5, CBC w Diff MAN DIFF ORDERED, RBC 2.69 L, MCV 82.7, MCH 26.1 L, RDW 15.7 H, MPV 8.4, Gran % 39.4 L, Lymphocytes % 47.9, Monocytes % 9.3, Eosinophils % 2.8, Basophils % 0.6, Absolute Granulocytes 1.7, Segmented Neutrophils 49, Absolute Lymphocytes 2.0, Lymphocytes 38, Monocytes 8, Absolute Monocytes 0.4, Eosinophils 5, Absolute Eosinophils 0.1, Absolute Basophils 0, Platelet Estimate VERIFIED BY SMEAR, Hypochromic-Microcytic 1+, Poikilocytosis 1+, Anisocytosis 1+, PUBS MCHC 31.6 L 09/07/17 0600: Haptoglobin Pending 09/06/17 1821: CBC w Diff NO MAN DIFF REQ, RBC 2.84 L, MCV 83.1, MCH 26.9 L, RDW 15.3 H, MPV 8.1, Gran % 59.1, Lymphocytes % 32.4, Monocytes % 6.3, Eosinophils % 1.5, Basophils % 0.7, Absolute Granulocytes 4.2, Absolute Lymphocytes 2.3, Absolute Monocytes 0.4, Absolute Eosinophils 0.1, Absolute Basophils 0.1, PUBS MCHC 32.3 L Assessment/Plan Assessment/Plan 87-year-old woman with a past medical history of paroxysmal atrial fibrillation, schizophrenia, both thyroid isn't, hypertension and hyperlipidemia. She was seen by her neurologist on a routine visit and noted to be bradycardic with heart rates of 30s as well as hypotensive with systolic blood pressures of 90s. She was then sent to our emergency room for further management. Bradycardia: Likely due to her medication regimen including her anti-schizophrenic regimen as well as low-dose metoprolol and hypothyroidism. At this time, her medication regimen has been held, and her heart rates have improved slightly. We will continue to treat her hypothyroidism. Once improved, may consider restarting her antipsychotic regimen if needed. There is no indication for a pacemaker implantation at this time; however, if needed for medication administration after thyroid function is improved, this may be considered. Atrial fibrillation: The patient was noted to have paroxysmal atrial fibrillation on remote outpatient note review. No evidence for the same however can be found at this time. As we have not seen atrial fibrillation, and as she has increased risk factors for full anticoagulation, I would not initiate this at this time. Further records from her outpatient primary care visits will be obtained to clarify this. Continue telemetry? Yes
[2017-09-08 15:12] VITALS: BP 130/60
[2017-09-08 23:30] VITALS: BP 100/56
[2017-09-09 07:00] VITALS: BP 142/72
[2017-09-09 07:12] LABS: ABSOLUTE BASOPHIL COUNT 0 /CUMM (0.0-0.2); ABSOLUTE EOSINOPHIL COUNT 0.2 /CUMM (0.0-0.7); ABSOLUTE GRANULOCYTE CT 4.2 /CUMM (1.4-6.5); ABSOLUTE LYMPH COUNT 2.5 /CUMM (1.2-3.4); ABSOLUTE MONOCYTE COUNT 0.8 /CUMM (0.10-0.60); BASOPHIL % 0.5 % (0.0-2.0); EOSINOPHIL % 2.1 % (0-5); GRANULOCYTE % 54.7 % (42.2-75.2); HEMATOCRIT 26.1 % (37-47); MEAN CORPUSCULAR HGB 26.9 PG (27.0-31.0); MEAN CORPUSCULAR HGB CONC 32.4 G/DL (33.0-37.0); MEAN PLATELET VOLUME 8.1 FL (7.4-10.4); PLATELET COUNT 262 /CUMM (130-400); RBC DISTRIBUTION WIDTH 15.4 % (11.5-14.5); RED BLOOD CELL CT 3.14 /CUMM (4.20-5.40); WHITE BLOOD CELL COUNT 7.7 /CUMM (4.8-10.8)
--- NOTE | 2017-09-09 09:09 | PN- Endocrinology ---
Assessment/Plan Assessment: 87 y/o female with PMHsignificant for schizophrenia and hypothyroidism, was referred to ER for evaluation after she was found to be hypotensive and bradycardic. In addition, she is anemic. She received transfusion on 09/07/2017. Now she is on iron supplement. Patient's dose of levothyroxine was reduced to 75 mcg yesterday because her free T4 was becoming elevated. Her most recent TSH is 4.5. 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 Repeat am cortisol was 10.5 which is normal. However, ACTH stimulation test was done as well--- 30 mins cortisol 29, 60 mins cortisol 35.7. Plan: Suggest continue levothyroxine 75 mcg daily. In one week she needs to have a repeat free T4 and TSH done and further adjustments in her thyroid medicine may be necessary at that time. The present dose of thyroid hormone will reach a steady state in about 4-6 weeks. Subjective Subjective: Feels okay Review of Systems Constitutional: Denies: chills, fever. Cardiovascular: Denies: chest pain. Gastrointestinal: Denies: abdominal pain, nausea, vomiting. Objective Last 24 Hrs of Vital Signs/I&O Vital Signs Date Time Temp Pulse Resp B/P B/P Pulse O2 O2 Flow FiO2 Mean Ox Delivery Rate 09/09 07 98.8 48 24 142/72 95 09/08 2330 97.8 44 26 100/56 97 Nasal Cannula 09/08 1512 99.1 60 18 130/60 96 Room Air Intake & Output 09/09 1600 09/09 0800 09/09 0000 Intake Total 700 Output Total Balance 700 Intake, Oral 700 Vital Signs Date Time Temp Pulse Resp B/P B/P Pulse O2 O2 Flow FiO2 Mean Ox Delivery Rate 09/09 0700 98.8 48 24 142/72 95 09/08 2330 97.8 44 26 100/56 97 Nasal Cannula 09/08 1512 99.1 60 18 130/60 96 Room Air Intake & Output 09/09 1600 09/09 0800 09/09 0000 Intake Total 700 Output Total Balance 700 Intake, Oral 700 Physical Exam General Appearance: alert, awake, comfortable Neck: normal inspection Respiratory: normal breath sounds Cardiovascular: irregularly irregular Extremities: normal inspection Current Medications: Current Medications Sig/Fidelia Start time Last Medication Dose Route Stop Time Status Admin Acetaminophen 650 MG Q6P PRN 09/05 1630 AC PO Aspirin 81 MG DAILY 09/06 1000 AC 09/09 PO 0834 Atorvastatin Calcium 80 MG 1700 09/06 1700 AC 09/08 PO 1738 Enoxaparin Sodium 40 MG DAILY 09/06 1000 AC 09/09 SC 0834 Ferrous Sulfate 325 MG BID 09/07 1000 AC 09/09 PO 0834 Ibuprofen 600 MG Q6P PRN 09/05 1630 AC PO Levothyroxine Sodium 0.075 MG DAILY AC 09/09 0700 AC 09/09 PO 0626 Levothyroxine Sodium 0.088 MG DAILY AC 09/06 0700 DC 09/08 PO 0613 Oxycodone/ 2 TAB Q6P PRN 09/05 1630 AC Acetaminophen PO Results Pertinent Lab/Feroz Results: Laboratory Tests 09/09 609 Hematology CBC w Diff NO MAN DIFF REQ WBC (4.8 - 10.8 /CUMM) 7.7 RBC (4.20 - 5.40 /CUMM) 3.14 L Hgb (12.0 - 16.0 G/DL) 8.4 L Hct (37 - 47 %) 26.1 L MCV (81.0 - 99.0 FL) 83.0 MCH (27.0 - 31.0 PG) 26.9 L RDW (11.5 - 14.5 %) 15.4 H Plt Count (130 - 400 /CUMM) 262 MPV (7.4 - 10.4 FL) 8.1 Gran % (42.2 - 75.2 %) 54.7 Lymphocytes % (20.5 - 51.1 %) 32.4 Monocytes % (1.7 - 9.3 %) 10.3 H Eosinophils % (0 - 5 %) 2.1 Basophils % (0.0 - 2.0 %) 0.5 Absolute Granulocytes (1.4 - 6.5 /CUMM) 4.2 Absolute Lymphocytes (1.2 - 3.4 /CUMM) 2.5 Absolute Monocytes (0.10 - 0.60 /CUMM) 0.8 H Absolute Eosinophils (0.0 - 0.7 /CUMM) 0.2 Absolute Basophils (0.0 - 0.2 /CUMM) 0 PUBS MCHC (33.0 - 37.0 G/DL) 32.4 L
--- NOTE | 2017-09-09 09:40 | PN- Housestaff ---
See Addendum Subjective Follow-up For: bradycardia, hypothyroid Tele-Events Since Last Visit: Virgil, SR Subjective: This morning, patient converted to afib with RVR. She was symptotomatic. Rates in 130-140s. She is only complaining of getting stuck. Review of Systems Constitutional: Reports: no symptoms. EENTM: Reports: no symptoms. Cardiovascular: Reports: no symptoms. Respiratory: Reports: no symptoms. Gastrointestinal: Reports: no symptoms. Genitourinary: Reports: no symptoms. Musculoskeletal: Reports: no symptoms. Skin: Reports: no symptoms. Neurological/Psychological: Reports: no symptoms. Hematologic/Endocrine: Reports: no symptoms. Immunologic/Allergic: Reports: no symptoms. Objective Last 24 Hrs of Vital Signs/I&O Vital Signs Date Time Temp Pulse Resp B/P B/P Pulse O2 O2 Flow FiO2 Mean Ox Delivery Rate 09/09 07 98.8 48 24 142/72 95 09/08 2330 97.8 44 26 100/56 97 Nasal Cannula 09/08 1512 99.1 60 18 130/60 96 Room Air Intake & Output 09/09 1600 09/09 0800 09/09 0000 Intake Total 700 Output Total Balance 700 Intake, Oral 700 Physical Exam General Appearance: Alert, Oriented X3, Cooperative, No Acute Distress Cardiovascular: afib, tachy Lungs: Clear to Auscultation Abdomen: Normal Bowel Sounds, Soft, No Tenderness Extremities: No Edema Current Medications: Current Medications Sig/Fidelia Start time Last Medication Dose Route Stop Time Status Admin Acetaminophen 650 MG Q6P PRN 09/05 1630 AC PO Aspirin 81 MG DAILY 09/06 1000 AC 09/09 PO 0834 Atorvastatin Calcium 80 MG 1700 09/06 1700 AC 09/08 PO 1738 Enoxaparin Sodium 40 MG DAILY 09/06 1000 AC 09/09 SC 0834 Ferrous Sulfate 325 MG BID 09/07 1000 AC 09/09 PO 0834 Ibuprofen 600 MG Q6P PRN 09/05 1630 AC PO Levothyroxine Sodium 0.075 MG DAILY AC 09/09 0700 AC 09/09 PO 0626 Oxycodone/ 2 TAB Q6P PRN 09/05 1630 AC Acetaminophen PO Last 24 Hrs of Lab/Feroz Results Last 24 Hrs of Labs/Mics: Laboratory Tests 09/09/17 0610: CBC w Diff NO MAN DIFF REQ, RBC 3.14 L, MCV 83.0, MCH 26.9 L, RDW 15.4 H, MPV 8.1, Gran % 54.7, Lymphocytes % 32.4, Monocytes % 10.3 H, Eosinophils % 2.1, Basophils % 0.5, Absolute Granulocytes 4.2, Absolute Lymphocytes 2.5, Absolute Monocytes 0.8 H, Absolute Eosinophils 0.2, Absolute Basophils 0, PUBS MCHC 32.4 L Assessment/Plan Assessment: 87 year-old female with past medical history of hypertension, hypothyroidism, schizophrenia was referred from pedicurist office with Hypotension and bradycardia. Patient was admitted in telemetry for further evaluation and management. She'll be transferred now to the ICU because she is having intermittent tachycardia and 12 seconds pauses. Please follow-up ICU notes for further information. Problem list 1. Bradycardia for evaluation 2. Hypertension 3. Schizophrenia 4. Hypothyroidism 5. Anemia Assessment and plan 1. Bradycardia - * Secondary due to beta raeann/antipsychotic/hypothyroidism. Her heart rate improving today. Her heart rate today is 59. She has no symptoms. Her repeat TSH yesterday was 4.5. Her thyroxine dose was decreased from 88 g to 75 g today as per endocrinology. If she has continued improvement most likely we will discharge her to short-term rehabilitation tomorrow. * Her cosyntropin stimulation showed a normal response. We will keep pacer pads available at bedside and if patient has continued to have bradycardia we will consider atropine. Patient will be followed by consultant internship today. We will continue her aspirin and atorvastatin. 2. Hypertension * We will hold her metoprolol in view of hypotension. Patient blood pressure is stable. Her blood pressure today is 120/60 3. Schizophrenia * We will continue holding ziprasidone, risperidone. Appreciate psychiatry recommendations 4. Hypothyroidism * Her levothyroxine dose was decreased to 75 g today as per endocrinology since her TSH decreased from 12-4.5. 5. Anemia * Patient has an acute drop of hemoglobin since admission. She had 1 unit of blood transfusion after hemoglobin of 7 which improved to 8.7 yesterday. Her anemia workup for hemolysis/hypothyroidism was normal. Her vitamin B12 and folic acid level were normal. Her anemia can be secondary due to hypothyroidism which causes normocytic and normochromic anemia or any gi bleed though she was guaiac was negative. Hematology and oncology follow-up appreciated. GI consult placed. Code-DNR/DNI Diet-heart healthy diet DVT prophylaxis-Lovenox Plan-for possible discharge tomorrow to short-term rehabilitation. Patient is to repeat the thyroid function tests on September 15, September 29, October 13 and follow-up with her pedicurist and primary care physician. Problem List: 1. Bradycardia Pain Ratin Pain Location: none Pain Goal: Remain pain free Pain Plan: see a/p Tomorrow's Labs & Rationales: per ICU team
--- NOTE | 2017-09-09 11:20 | Event Note ---
Event Note Event Note: Patient converted to atrial fibrillation with rapid ventricular response 140 b/ m. She is alert, oriented, is symptomatic. Blood pressure 127/80. Patient was given 1 dose of Lopressor 2.5 mg after discussing with attending physician, heart rate went down to 70 however started to go up again to 110s. Nurse reported post of 12 seconds Attending was informed, plan to transfer patient to ICU for close monitoring. Cardiology Dr. Yu was informed. Spoke with family, POA her sister is in [place], spoke with sister's who contacted POA in [place]. They are accepting any intervention based on our clinical judgment including transfer patient to ICU and pacemaker. We'll continue to have DNR DNI as a code.
--- NOTE | 2017-09-09 12:01 | Cons- Psychiatry ---
Psychiatric Consult Date of Consult: 09/09/17 Reason for Consult: Reccs for restarting psych meds History of Present Illness: Per Dr Wise note on 09/05/2017: "87-year-old female with past medical history of hypertension, schizophrenia, hypothyroidism was evaluated at endocrinologists office and found to have decreased heart rate 40/m and blood pressure 90/30 and was referred to [place] ER for further management. According to patient she offers no complaints and until today's office visit found to have bradycardia and hypotension. Patient denies chest pain, shortness of breath, dizziness, vision changes, weakness, altered sensation, abdominal pain, nausea, vomiting, fever, chills, blackout, increased vision, tinnitus, headache, altered bowel habits. Patient was given a bolus of normal saline in the ER. Patient TSH was 12 and was given a IV stress dose of levothyroxine 50 mcg." On exam with senior technical writer, pt was pleasant but unable to engage in much of the interview d/t dementia. Upon being asked if a nurse helped her with her medicines, pt became frightened and shouted "I dont want to go home!" Pt reassured. Pt really only able to communicate that she was not having pain. Oriented to self and knew that she was in the hospital. Pt made a "ew" face when asked if she ever had thoughts of hurting herself. Pt unable to engage in full MSE/MMSE. Pt med list shows risperidone 3 mg po qpm and zisprazidone 40 mg po bid, unable to confirm adherence. ECG showing HR 102 after lopressor for tachycardia, QTc 469 ms, Afib. Cardiology consulted. TSH 4.5, T4 1.96, karson 29.2. Within 30 min of interview, patient converted to afib with RVR, HR from 50s to 130-140s. Pt transferred to ICU for futher monitoring. Of note, pt is DNR/DNI. Allergies: Coded Allergies: No Known Allergies (09/05/17) Current Medications: Current Medications Sig/Fidelia Start time Last Medication Dose Route Stop Time Status Admin Acetaminophen 650 MG Q6P PRN 09/05 1630 AC PO Aspirin 81 MG DAILY 09/06 1000 AC 09/09 PO 0834 Atorvastatin Calcium 80 MG 1700 09/06 1700 AC 09/09 PO 1645 Enoxaparin Sodium 40 MG DAILY 09/06 1000 AC 09/09 SC 0834 Ferrous Sulfate 325 MG BID 09/07 1000 AC 09/09 PO 2206 Ibuprofen 600 MG Q6P PRN 09/05 1630 AC PO Levothyroxine Sodium 0.075 MG DAILY AC 09/09 0700 AC 09/09 PO 0626 Lorazepam 0.5 MG ONE ONE 09/10 0045 DC 09/10 PO 09/10 0046 0048 Magnesium Oxide 400 MG BID 09/09 1142 DC 09/09 PO 1218 Magnesium Sulfate 1 GM ONCE ONE 09/09 1315 DC 09/09 Dextrose/Water 100 ML IV 09/09 1714 1400 Metoprolol Tartrate 2.5 MG ONCE ONE 09/09 1015 DC 09/09 IV 09/09 1016 1019 Morphine Sulfate 1 MG Q4P PRN 09/09 2315 AC 09/09 IV 2316 Morphine Sulfate 1 MG ONCE ONE 09/09 2030 DC 09/09 IV 09/09 2031 2032 Oxycodone/ 2 TAB Q6P PRN 09/05 1630 DC Acetaminophen PO Potassium Chloride 10 MEQ ONCE ONE 09/09 1215 DC 09/09 PO 09/09 1216 1218 Potassium Chloride 10 MEQ ONCE ONE 09/09 1215 DC 09/09 PO 09/09 1216 1219 Past History Past Medical History Neurological: NONE EENT: DENIES Cardiovascular: hypertension Respiratory: NONE Gastrointestinal: NONE Hepatic: NONE Renal: DENIES Musculoskeletal: DENIES Psychiatric: schizophrenia Endocrine: hypothyroidism Blood Disorders: DENIES Cancer(s): DENIES MOTOR ROOM [employer]ER/Reproductive: DENIES Past Surgical History Surgical History: unobtainable Psychosocial History Strengths/Capabilities: unknown Physical Limitations (Interventions): cognitive limitations/dementia, may be bedridden Psychiatric Treatment History Diagnosis: Major neurocogitive disorder (dementia), h/o schizophrenia, new onset bradycardia/aFib. Risk Factors: polypharmacy, age, vunerable d/t dementia/age Assessment/Plan Mental Status Orientation: Person, knows she is in a hospital Affect: Variable Speech: Delayed Neuro-vegetative: Concentration Poor Mental Status Exam: GEN: oriented to self, knows she is in hospital, frightened at thought of d/c SPEECH: minimal, moderate volume, broken MOTOR: no tics, tremor, sterotypies, other abnormal movement MOOD: "What?" AFFECT: confused, pleasant, mildly labile with nursing cares, poorly related TP: disorganized TC: unable to fully ascertain, no apparent SI/HI/AVH/SIB COG: limited d/t dementia JUDGMENT: poor INSIGHT: poor Lab Results: Laboratory Tests 09/09/17 1019: Anion Gap 11, Estimated GFR > 60, BUN/Creatinine Ratio 18.3, Phosphorus 2.7, Magnesium 1.7, Troponin I < 0.01, TSH 2.140, Free T4 2.01 H 09/09/17 0610: CBC w Diff NO MAN DIFF REQ, RBC 3.14 L, MCV 83.0, MCH 26.9 L, RDW 15.4 H, MPV 8.1, Gran % 54.7, Lymphocytes % 32.4, Monocytes % 10.3 H, Eosinophils % 2.1, Basophils % 0.5, Absolute Granulocytes 4.2, Absolute Lymphocytes 2.5, Absolute Monocytes 0.8 H, Absolute Eosinophils 0.2, Absolute Basophils 0, PUBS MCHC 32.4 L 09/08/17 0634: Anion Gap 10, Estimated GFR > 60, BUN/Creatinine Ratio 25.0, CBC w Diff NO MAN DIFF REQ, RBC 3.13 L, MCV 83.1, MCH 27.0, RDW 15.5 H, MPV 8.4, Gran % 52.3, Lymphocytes % 34.7, Monocytes % 10.6 H, Eosinophils % 1.1, Basophils % 1.3, Absolute Granulocytes 3.9, Absolute Lymphocytes 2.6, Absolute Monocytes 0.8 H, Absolute Eosinophils 0.1, Absolute Basophils 0.1, PUBS MCHC 32.5 L Diffential Diagnosis: Major neurocognitive disorder (dementia), h/o schizophrenia, AMS (metabolic, cardiogenic, neurological, med effect, other reversible causes of delirium) Impression: 87 yo WF with history of dementia and schizophrenia presenting to ED following episode of bradycardia (40s) in outpatient clinic, psychiatry consulted for medication recommendations. At this time, patient is medically unstable, being moved to ICU, with Afib/bradycardia heart rates ranging between 40s and 120s. Provisional Treatment Plan: -Would continue to hold psychiatric medications (risperidone, ziprasidone) at this time until medically stable then would discuss restart of only necessary medications and reduce polypharmacy as much as possible. Would consider need for both risperidone and ziprazidone in this elderly woman. -would monitor for any reversible causes of AMS vs baseline dementia, additional collateral may prove helpful in establishing cognitive baseline -would avoid benzodiazepines and anticholiergics as much as possible -Per medical team patient is DNR/DNI -Plan discussed with medical team -Psychiatry consult service to follow, please feel free to contact C/L team with questions
[2017-09-09 16:00] VITALS: BP 140/76
--- NOTE | 2017-09-09 16:19 | PN- Cardiology ---
Subjective Subjective: Documented AF recurred this morning with RVRs (~140 BPM) and HO administered IV metoprolol 2.5 mg 1 w/ subsequent slowing of ventricular response followed by transient asystole (12 seconds) & a second episode of asystole (5 seconds) requiring transfer to ICU with return to sinus evette & heart rates in the 40s at this time. Placement of transcutaneous pacemaker pads followed in case the patient develops symptomatic bradycardia. Objective Vital Signs and I&Os Vital Signs Date Time Temp Pulse Resp B/P B/P Pulse O2 O2 Flow FiO2 Mean Ox Delivery Rate 09/09 1200 96 Room Air 09/09 0700 98.8 48 24 142/72 95 09/08 2330 97.8 44 26 100/56 97 Nasal Cannula Intake & Output 09/09 1600 09/09 0800 09/09 0000 09/08 1600 09/08 0800 09/08 0000 Intake Total 700 800 110 200 Output Total Balance 700 800 110 200 Intake, IV 10 Intake, Oral 700 800 100 200 Number 1 Bowel Movements Physical Exam: Well-developed, well-nourished elderly female in no acute distress. Vital signs: See above. Neck: No JVD, no bruits. Lungs: Clear to auscultation bilaterally. Heart: S1, S2 (regular) with a soft (grade 1/6) systolic murmur. Abdomen: Soft, nontender, positive bowel sounds. Extremities: No edema. Current Medications: Current Medications Sig/Fidelia Start time Last Medication Dose Route Stop Time Status Admin Acetaminophen 650 MG Q6P PRN 09/05 1630 AC PO Aspirin 81 MG DAILY 09/06 1000 AC 09/09 PO 0834 Atorvastatin Calcium 80 MG 1700 09/06 1700 AC 09/08 PO 1738 Enoxaparin Sodium 40 MG DAILY 09/06 1000 AC 09/09 SC 0834 Ferrous Sulfate 325 MG BID 09/07 1000 AC 09/09 PO 0834 Ibuprofen 600 MG Q6P PRN 09/05 1630 AC PO Levothyroxine Sodium 0.075 MG DAILY AC 09/09 0700 AC 09/09 PO 0626 Magnesium Oxide 400 MG BID 09/09 1142 DC 09/09 PO 1218 Magnesium Sulfate 1 GM ONCE ONE 09/09 1315 AC 09/09 Dextrose/Water 100 ML IV 09/09 1714 1400 Metoprolol Tartrate 2.5 MG ONCE ONE 09/09 1015 DC 09/09 IV 09/09 1016 1019 Oxycodone/ 2 TAB Q6P PRN 09/05 1630 DC Acetaminophen PO Potassium Chloride 10 MEQ ONCE ONE 09/09 1215 DC 09/09 PO 09/09 1216 1218 Potassium Chloride 10 MEQ ONCE ONE 09/09 1215 DC 09/09 PO 09/09 1216 1219 Results Last 48 Hrs of Labs/Mics: Laboratory Tests 09/09/17 1019: Anion Gap 11, Estimated GFR > 60, BUN/Creatinine Ratio 18.3, Phosphorus 2.7, Magnesium 1.7, Troponin I < 0.01, TSH 2.140, Free T4 2.01 H 09/09/17 0610: CBC w Diff NO MAN DIFF REQ, RBC 3.14 L, MCV 83.0, MCH 26.9 L, RDW 15.4 H, MPV 8.1, Gran % 54.7, Lymphocytes % 32.4, Monocytes % 10.3 H, Eosinophils % 2.1, Basophils % 0.5, Absolute Granulocytes 4.2, Absolute Lymphocytes 2.5, Absolute Monocytes 0.8 H, Absolute Eosinophils 0.2, Absolute Basophils 0, PUBS MCHC 32.4 L 09/08/17 0634: Anion Gap 10, Estimated GFR > 60, BUN/Creatinine Ratio 25.0, CBC w Diff NO MAN DIFF REQ, RBC 3.13 L, MCV 83.1, MCH 27.0, RDW 15.5 H, MPV 8.4, Gran % 52.3, Lymphocytes % 34.7, Monocytes % 10.6 H, Eosinophils % 1.1, Basophils % 1.3, Absolute Granulocytes 3.9, Absolute Lymphocytes 2.6, Absolute Monocytes 0.8 H, Absolute Eosinophils 0.1, Absolute Basophils 0.1, PUBS MCHC 32.5 L 09/07/17 2226: CBC w Diff NO MAN DIFF REQ, RBC 3.25 L, MCV 83.2, MCH 26.8 L, RDW 15.4 H, MPV 7.8, Gran % 70.4, Lymphocytes % 21.2, Monocytes % 8.1, Eosinophils % 0.1, Basophils % 0.2, Absolute Granulocytes 7.2 H, Absolute Lymphocytes 2.2, Absolute Monocytes 0.8 H, Absolute Eosinophils 0, Absolute Basophils 0, PUBS MCHC 32.2 L Assessment/Plan Assessment/Plan [id number]-f w/ hx HTN, HLD, hypothyroidism, PAF, & schizophrenia who following evaluation by her neurologist (routine visit) and found to be bradycardic (30s) & hypotensive (systolic BP 90s) prompting ED evaluation. Bradycardia felt to be multifactorial and 2/2 medications, including her anti- schizophrenic regimen, low-dose metoprolol, and hypothyroidism. Medications were held, and her HR improved until she went into AF w/ RVR (vide supra). Transcutaneous pacemaker set to demand at 40 bpm with current output set to 40 mA. Fortunately, the duration of the AF was relatively brief & anticoagulation is not an issue at this time. If she returns to AF with RVR will tolerate, as long as she remains hemodynamically stable. Replete potassium and magnesium. Continue anemia evaluation. Continue telemetry? Not applicable (In ICU.) #3. Hypothyroidism #4. Anemia being worked up She is not on any rate lowering medications. Her blood pressure is well controlled. Continue telemetry? Not applicable (In ICU.)
[2017-09-10] VITALS: BP 139/57
[2017-09-10 05:01] LABS: ABSOLUTE BASOPHIL COUNT 0 /CUMM (0.0-0.2); ABSOLUTE EOSINOPHIL COUNT 0.2 /CUMM (0.0-0.7); ABSOLUTE GRANULOCYTE CT 5.1 /CUMM (1.4-6.5); ABSOLUTE LYMPH COUNT 2.3 /CUMM (1.2-3.4); ABSOLUTE MONOCYTE COUNT 0.8 /CUMM (0.10-0.60); BASOPHIL % 0.4 % (0.0-2.0); EOSINOPHIL % 2.1 % (0-5); GRANULOCYTE % 60.8 % (42.2-75.2); HEMATOCRIT 25.6 % (37-47); MEAN CORPUSCULAR HGB 27.2 PG (27.0-31.0); MEAN CORPUSCULAR HGB CONC 32.7 G/DL (33.0-37.0); MEAN CORPUSCULAR VOLUME 83.3 FL (81.0-99.0); PLATELET COUNT 251 /CUMM (130-400); RBC DISTRIBUTION WIDTH 15.7 % (11.5-14.5); RED BLOOD CELL CT 3.07 /CUMM (4.20-5.40); WHITE BLOOD CELL COUNT 8.5 /CUMM (4.8-10.8)
[2017-09-10 08:00] VITALS: BP 122/58
--- NOTE | 2017-09-10 08:52 | PN- CRCU ---
Impression/Plan Impression/Plan Code Status: Do Not Resucitate/Intubat
--- NOTE | 2017-09-10 08:59 | Cons- CRCU ---
General Information and HPI Consulting Request Date of Consult: 09/10/17 Requested By: Dr. Ortega Reason for Consult: Tachy-evette syndrome Source of Information: patient, old records Exam Limitations: poor historian History of Present Illness: Ms. Velasco is a pleasant 87-year-old female with past medical history of hypertension, hypothyroidism, remote history of schizophrenia and SLE not taking steroids since 10 years, was referred by her flotation tank operator's office for bradycardia with a heart rate in the 40s, and blood pressure of 90/30 mmhg for further management. She was found to have hypothyroidism with TSH of 11.5, for which she was already on a increased level of levothyroxine 88 g prescribed by her flotation tank operator as her TSH on 08/04/2017 was 53. She was admitted to telemetry floor and cardiology consultation was also obtained. She responded well to IV levothyroxine 50 g and later PO levothyroxine at 88 g daily and her TSH subsequently came down to 4.5 on 2017. Her bradycardia was suspected to be due to hypothyroidism and was initially responding well to the levothyroxine. Her Beta raeann, and antipsychotics were held. However yesterday morning patient developed atrial fibrillation with a rapid ventricular response. She was given 2.5 mg of Lopressor without rate transiently going down to 70 before increasing to 110s. However, around 11 AM yesterday, she subsequently developed a 5 second pause and a 12 second pause was transferred to the ICU and placed on a past cutaneous pacing pacemaker rate programmed at 40. She has remained asymptomatic but has been having a heart rate in the low 40s overnight with intermittent pacing spikes. On review this morning she has no complaints. She denies chest pain, palpitations, shortness of breath, lightheadedness or diaphoresis. She states that she is slightly hungry however we are holding the meals for now on account of possible pacemaker placement by cardiology. Allergies/Medications Allergies: Coded Allergies: No Known Allergies (09/05/17) Home Med List: Aspirin (Aspirin*) 81 MG TAB.CHEW 1 TAB PO DAILY cad (Reported) Atorvastatin Calcium (Lipitor) 80 MG TABLET 1 TAB PO DAILY cholesterol ( Reported) Ferrous Sulfate 325 MG (65 MG IRON) TABLET.DR 325 MG PO BID anemia Levothyroxine Sodium 88 MCG TABLET 1 TAB PO DAILY thyroid (Reported) Levothyroxine Sodium 75 MCG TABLET 1 TAB PO DAILY hypothyroid Metoprolol Tartrate 25 MG TABLET 0.5 TAB PO BID htn (Reported) Risperidone (Risperdal) 3 MG TABLET 1 TAB PO QPM mental health (Reported) Ziprasidone HCl (Geodon) 40 MG CAPSULE 1 CAP PO BID mental health (Reported) Current Medications: Current Medications Sig/Fidelia Start time Last Medication Dose Route Stop Time Status Admin Acetaminophen 650 MG Q6P PRN 09/05 1630 AC PO Aspirin 81 MG DAILY 09/06 1000 AC 09/09 PO 0834 Atorvastatin Calcium 80 MG 1700 09/06 1700 AC 09/09 PO 1645 Enoxaparin Sodium 40 MG DAILY 09/06 1000 AC 09/09 SC 0834 Ferrous Sulfate 325 MG BID 09/07 1000 AC 09/09 PO 2206 Ibuprofen 600 MG Q6P PRN 09/05 1630 AC PO Levothyroxine Sodium 0.075 MG DAILY AC 09/09 0700 AC 09/10 PO 0549 Lorazepam 0.5 MG ONE ONE 09/10 0045 DC 09/10 PO 09/10 0046 0048 Magnesium Oxide 400 MG BID 09/09 1142 DC 09/09 PO 1218 Magnesium Sulfate 1 GM ONCE ONE 09/09 1315 DC 09/09 Dextrose/Water 100 ML IV 09/09 1714 1400 Morphine Sulfate 1 MG Q4P PRN 09/09 2315 AC 09/09 IV 2316 Morphine Sulfate 1 MG ONCE ONE 09/09 2030 DC 09/09 IV 09/09 2031 2032 Potassium Chloride 10 MEQ ONCE ONE 09/09 1215 DC 09/09 PO 09/09 1216 1218 Potassium Chloride 10 MEQ ONCE ONE 09/09 1215 DC 09/09 PO 09/09 1216 1219 Review of Systems Review of Systems Constitutional: Denies: chills, fever, weakness. EENTM: Denies: double vision, nasal congestion, throat pain. Cardiovascular: Denies: chest pain, edema, palpitations, syncope. Respiratory: Denies: cough, short of breath. GI: Denies: abdominal pain, bloating, constipation, diarrhea. Genitourinary: Denies: dysuria, hematuria. Musculoskeletal: Denies: back pain, joint pain. Neurological/Psychological: Denies: headache, tonic-clonic seizures. Past History Travel History Traveled to Daily past 21 day No Medical History Blood Transfusion Hx: No Neurological: NONE EENT: DENIES Cardiovascular: hypertension Respiratory: NONE Gastrointestinal: NONE Hepatic: NONE Renal: DENIES Musculoskeletal: DENIES Psychiatric: schizophrenia Endocrine: hypothyroidism Blood Disorders: DENIES Cancer(s): DENIES [employer]ATE/Reproductive: DENIES Surgical History Surgical History: unobtainable Family History Relations & Conditions If Any: Relation not specified for: *No pertinent family history Psychosocial History Where Do You Live? Long-Term Facility Who Do You Live With? self Services at Home: Nursing Primary Language: Bulgarian Smoking Status: Former Smoker ETOH Use: denies use Illicit Drug Use: denies illicit drug use Functional Ability ADLs Independent: dressing, eating, toileting, bathing. Ambulation: walker IADLs Needs Assist: shopping, housework, finances, food prep, telephone, transportation, medication admin. Exam & Diagnostic Data Last 24 Hrs of Vital Signs/I&O Vital Signs Date Time Temp Pulse Resp B/P B/P Pulse O2 O2 Flow FiO2 Mean Ox Delivery Rate 09/10 0800 98.3 40 20 122/58 95 Room Air 09/10 0000 97.8 43 16 139/57 95 09/09 1600 97 Room Air 09/09 1600 98.6 45 26 140/76 97 Room Air Intake & Output 09/10 1600 09/10 0800 09/10 0000 Intake Total 200 360 Output Total Balance 200 360 Intake, Oral 200 360 Physical Exam General Appearance: well developed/nourished, no apparent distress, alert, sedated Head: atraumatic, normal appearance Eyes: Bilateral: PERRL, EOMI. Ears, Nose, Throat: normal pharynx, normal ENT inspection Neck: normal inspection, supple Respiratory: normal breath sounds, chest non-tender, lungs clear Cardiovascular: normal peripheral pulses, bradycardia, No edema Gastrointestinal: normal bowel sounds, soft, non-tender, no organomegaly Extremities: normal inspection, no edema Neurologic/Psych: no motor/sensory deficits, awake, production estimator II-XII nml as tested, sedated Cranial Nerves: normal hearing, normal speech, PERRL Last 48 Hrs of Labs/Feroz: Laboratory Tests 09/10/17 0420: Anion Gap 10, Estimated GFR > 60, Glucose 75, Calcium 8.5, Phosphorus 3.8, Magnesium 2.0, Total Bilirubin 0.3, AST 19, ALT 20, Albumin 2.8 L, CBC w Diff NO MAN DIFF REQ, RBC 3.07 L, MCV 83.3, MCH 27.2, RDW 15.7 H, MPV 8.0, Gran % 60.8, Lymphocytes % 27.1, Monocytes % 9.6 H, Eosinophils % 2.1, Basophils % 0.4 , Absolute Granulocytes 5.1, Absolute Lymphocytes 2.3, Absolute Monocytes 0.8 H , Absolute Eosinophils 0.2, Absolute Basophils 0, PUBS MCHC 32.7 L 09/09/17 1019: Anion Gap 11, Estimated GFR > 60, BUN/Creatinine Ratio 18.3, Phosphorus 2.7, Magnesium 1.7, Troponin I < 0.01, TSH 2.140, Free T4 2.01 H 09/09/17 0610: CBC w Diff NO MAN DIFF REQ, RBC 3.14 L, MCV 83.0, MCH 26.9 L, RDW 15.4 H, MPV 8.1, Gran % 54.7, Lymphocytes % 32.4, Monocytes % 10.3 H, Eosinophils % 2.1, Basophils % 0.5, Absolute Granulocytes 4.2, Absolute Lymphocytes 2.5, Absolute Monocytes 0.8 H, Absolute Eosinophils 0.2, Absolute Basophils 0, PUBS MCHC 32.4 L Assessment/Plan Impression/Plan: 87 year-old female with past medical history of hypertension, hypothyroidism, and schizophrenia who was referred from her her flotation tank operator office with Hypotension and bradycardia. She was initially admitted in telemetry and monitor atrial fibrillation and tachycardia-bradycardia syndrome. However on account of bradycardia with pauses ranging from 5-12 seconds she was transferred to the ICU yesterday for closer monitoring after pacer pads were applied. Assessment and plan 1. 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 Hypertension * We will hold her metoprolol in view of bradycardia and transient hypotension. Patient blood pressure is stable today 3. Schizophrenia * We will continue holding ziprasidone, risperidone. Appreciate psychiatry recommendations 4. Hypothyroidism * Endocrinology input appreciated Her cosyntropin stimulation showed a normal response. * Her levothyroxine dose was decreased to 75 g as per endocrinology since her TSH decreased from 12-4.5 * We'll repeat TSH and free T4 tomorrow 5. Anemia * Patient has an acute drop of hemoglobin after admission. She had 1 unit of blood transfusion after hemoglobin of 7 which improved to 8.7. * Her anemia workup for hemolysis/hypothyroidism was normal. Her vitamin B12 and folic acid level were normal. * Hematology and oncology follow-up appreciated. * Recommended iron and outpatient GI workup with endoscopy given her age * GI consult has already been placed * Her anemia can be secondary due to hypothyroidism which causes normocytic and normochromic anemia or any gi bleed though she was guaiac was negative. * Code-DNR/DNI Diet-heart healthy diet DVT prophylaxis-Lovenox Problem List: 1. Bradycardia 2. Hypotension 3. Hypothyroid 4. Anemia Consult Acknowledgment - Thank you for your consult request.
--- NOTE | 2017-09-10 09:48 | PN- Endocrinology ---
Assessment/Plan Assessment: 87 y/o female with PMHsignificant for schizophrenia and hypothyroidism, was referred to ER for evaluation after she was found to be hypotensive and bradycardic. In addition, she is anemic. She received transfusion on 09/07/2017. Now she is on iron supplement. The patient was transferred to the intensive care unit because of bradycardia. She is on levo thyroxine 75 mcg daily. Most recent lab work shows a TSH yesterday of 2.14 and a free T4 2.10. 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 Repeat am cortisol was 10.5 which is normal. However, ACTH stimulation test was done as well--- 30 mins cortisol 29, 60 mins cortisol 35.7. Plan: The patient's thyroid tests are within a good range. Her TSH is normal and her free T4 is mildly high at 2.01. Her bradycardia is not due to hypothyroidism. I would leave her on the same dose of thyroid hormone for now. I would repeat her TSH and free T4 tomorrow a.m. Subjective Subjective: Patient is sleeping this morning Objective Last 24 Hrs of Vital Signs/I&O Vital Signs Date Time Temp Pulse Resp B/P B/P Pulse O2 O2 Flow FiO2 Mean Ox Delivery Rate 09/10 0800 98.3 40 20 122/58 95 Room Air 09/10 0000 97.8 43 16 139/57 95 09/09 1600 97 Room Air 09/09 1600 98.6 45 26 140/76 97 Room Air 09/09 1200 96 Room Air Intake & Output 09/10 1600 09/10 0800 09/10 0000 Intake Total 200 360 Output Total Balance 200 360 Intake, Oral 200 360 Vital Signs Date Time Temp Pulse Resp B/P B/P Pulse O2 O2 Flow FiO2 Mean Ox Delivery Rate 09/10 0800 98.3 40 20 122/58 95 Room Air 09/10 0000 97.8 43 16 139/57 95 09/09 1600 97 Room Air 09/09 1600 98.6 45 26 140/76 97 Room Air 09/09 1200 96 Room Air Intake & Output 09/10 1600 09/10 0800 09/10 0000 Intake Total 200 360 Output Total Balance 200 360 Intake, Oral 200 360 Physical Exam General Appearance: sedated Head: normal appearance Neck: normal inspection Respiratory: normal breath sounds Cardiovascular: bradycardia Current Medications: Current Medications Sig/Fidelia Start time Last Medication Dose Route Stop Time Status Admin Acetaminophen 650 MG Q6P PRN 09/05 1630 AC PO Aspirin 81 MG DAILY 09/06 1000 AC 09/09 PO 0834 Atorvastatin Calcium 80 MG 1700 09/06 1700 AC 09/09 PO 1645 Enoxaparin Sodium 40 MG DAILY 09/06 1000 AC 09/09 SC 0834 Ferrous Sulfate 325 MG BID 09/07 1000 AC 09/09 PO 2206 Ibuprofen 600 MG Q6P PRN 09/05 1630 AC PO Levothyroxine Sodium 0.075 MG DAILY AC 09/09 0700 AC 09/10 PO 0549 Lorazepam 0.5 MG ONE ONE 09/10 0045 DC 09/10 PO 09/10 0046 0048 Magnesium Oxide 400 MG BID 09/09 1142 DC 09/09 PO 1218 Magnesium Sulfate 1 GM ONCE ONE 09/09 1315 DC 09/09 Dextrose/Water 100 ML IV 09/09 1714 1400 Metoprolol Tartrate 2.5 MG ONCE ONE 09/09 1015 DC 09/09 IV 09/09 1016 1019 Morphine Sulfate 1 MG Q4P PRN 09/09 2315 AC 09/09 IV 2316 Morphine Sulfate 1 MG ONCE ONE 09/09 2030 DC 09/09 IV 09/09 2031 2032 Oxycodone/ 2 TAB Q6P PRN 09/05 1630 DC Acetaminophen PO Potassium Chloride 10 MEQ ONCE ONE 09/09 1215 DC 09/09 PO 09/09 1216 1218 Potassium Chloride 10 MEQ ONCE ONE 09/09 1215 DC 09/09 PO 09/09 1216 1219 Results Pertinent Lab/Feroz Results: Laboratory Tests 09/10 09/09 0420 1019 Chemistry Sodium (137 - 145 mmol/L) 141 143 Potassium (3.5 - 5.1 mmol/L) 4.2 3.5 Chloride (98 - 107 mmol/L) 104 106 Carbon Dioxide (22 - 30 mmol/L) 28 25 Anion Gap (5 - 16) 10 11 BUN (7 - 17 mg/dL) 12 11 Creatinine (0.5 - 1.0 mg/dL) 0.5 0.6 Estimated GFR (>60 ml/min) > 60 > 60 BUN/Creatinine Ratio (7 - 25 %) 18.3 Glucose (65 - 99 mg/dL) 75 Calcium (8.4 - 10.2 mg/dL) 8.5 Phosphorus (2.5 - 4.5 mg/dL) 3.8 2.7 Magnesium (1.6 - 2.3 mg/dL) 2.0 1.7 Total Bilirubin (0.2 - 1.3 mg/dL) 0.3 AST (14 - 36 U/L) 19 ALT (9 - 52 U/L) 20 Troponin I (< 0.11 ng/ml) < 0.01 Albumin (3.5 - 5.0 g/dL) 2.8 L TSH (0.270 - 4.200 uIU/mL) 2.140 Free T4 (0.85 - 1.93 ng/dL) 2.01 H Hematology CBC w Diff NO MAN DIFF REQ WBC (4.8 - 10.8 /CUMM) 8.5 RBC (4.20 - 5.40 /CUMM) 3.07 L Hgb (12.0 - 16.0 G/DL) 8.4 L Hct (37 - 47 %) 25.6 L MCV (81.0 - 99.0 FL) 83.3 MCH (27.0 - 31.0 PG) 27.2 RDW (11.5 - 14.5 %) 15.7 H Plt Count (130 - 400 /CUMM) 251 MPV (7.4 - 10.4 FL) 8.0 Gran % (42.2 - 75.2 %) 60.8 Lymphocytes % (20.5 - 51.1 %) 27.1 Monocytes % (1.7 - 9.3 %) 9.6 H Eosinophils % (0 - 5 %) 2.1 Basophils % (0.0 - 2.0 %) 0.4 Absolute Granulocytes (1.4 - 6.5 /CUMM) 5.1 Absolute Lymphocytes (1.2 - 3.4 /CUMM) 2.3 Absolute Monocytes (0.10 - 0.60 /CUMM) 0.8 H Absolute Eosinophils (0.0 - 0.7 /CUMM) 0.2 Absolute Basophils (0.0 - 0.2 /CUMM) 0 PUBS MCHC (33.0 - 37.0 G/DL) 32.7 L
--- NOTE | 2017-09-10 14:02 | PN- Att Addend ---
Attending Addendum Attending Brief Note Attending MD Statement: examined this patient, discuss w/resident/PA/MARINE STRUCTURAL WELDER, agreed w/resident/PA/MARINE STRUCTURAL WELDER, reviewed EMR data (avail), discussed with nursing, discussed with case mgmt, amended to note Attending Assessment/Plan: Patient seen and examined. Resting comfortably not in any acute distress. Asymptomatic at this time. Patient does not have pauses anymore as the patient has a back up rate of 40 and gets externally paced when needed when the heart rate goes below 40 Problems: 1. Tachy-evette syndrome with A. fib - likely due to sick sinus syndrome 2. Anemia; appears to be secondary to hypo-proliferation. 3. Hypothyroidism; markedly elevated thyroperoxidase antibody is suggestive of thyroiditis. Plan: 1. Patient transferred to ICU for closer monitoring and pacer pads applied - Back up heart rate set at 40 - patient received multiple pacing episodes from the external pacer pads - intermittent morphine and ativan given for the pain - Discontinued the BB - Will need a PPM - Appreciate cardiology recommendations - Continue to optimize control of her hypothyroidism and monitor for improvement of heart rate - Bradycardia less likely due to be due to Hypothyroidim - continue with the current dose of levothyroxine - Appreciate endocrinology recommendations - Hemoglobin is currently stable
[2017-09-10 16:00] VITALS: BP 140/70
--- NOTE | 2017-09-10 18:28 | PN- Cardiology ---
Subjective Subjective: No complaints. Continues to have occasional significant bradycardia requiring transcutaneous pacing, but appears to be tolerating this reasonably well. Objective Vital Signs and I&Os Vital Signs Date Time Temp Pulse Resp B/P B/P Pulse O2 O2 Flow FiO2 Mean Ox Delivery Rate 09/10 1600 97.9 42 20 140/70 94 Room Air 09/10 0800 98.3 40 20 122/58 95 Room Air 09/10 0000 97.8 43 16 139/57 95 Intake & Output 09/10 1600 09/10 0800 09/10 0000 09/09 1600 09/09 0800 09/09 0000 Intake Total 150 200 360 190 700 Output Total 1 Balance 150 200 360 189 700 Intake, IV 150 130 Intake, Oral 0 200 360 60 700 Number 1 Bowel Movements Output, Urine 1 Physical Exam: Well-developed, well-nourished elderly female in no acute distress. Vital signs: See above. Neck: No JVD, no bruits. Lungs: Clear to auscultation bilaterally. Heart: S1, S2 (regular) with a soft (grade 1/6) systolic murmur. Abdomen: Soft, nontender, positive bowel sounds. Extremities: No edema. Current Medications: Current Medications Sig/Fidelia Start time Last Medication Dose Route Stop Time Status Admin Acetaminophen 650 MG Q6P PRN 09/05 1630 AC PO Aspirin 81 MG DAILY 09/06 1000 AC 09/09 PO 0834 Atorvastatin Calcium 80 MG 1700 09/06 1700 AC 09/10 PO 1657 Dextrose/Water 1,000 ML Q20H 09/10 1300 AC 09/10 IV 1427 Enoxaparin Sodium 40 MG DAILY 09/06 1000 AC 09/10 SC 1243 Ferrous Sulfate 325 MG BID 09/07 1000 AC 09/09 PO 2206 Ibuprofen 600 MG Q6P PRN 09/05 1630 AC PO Levothyroxine Sodium 0.075 MG DAILY AC 09/09 0700 AC 09/10 PO 0549 Lorazepam 0.5 MG ONE ONE 09/10 0045 DC 09/10 PO 09/10 0046 0048 Morphine Sulfate 1 MG Q4P PRN 09/09 2315 AC 09/09 IV 2316 Morphine Sulfate 1 MG ONCE ONE 09/09 2029 DC 09/09 IV 09/09 Results Last 48 Hrs of Labs/Mics: Laboratory Tests 09/10/17 0420: Anion Gap 10, Estimated GFR > 60, Glucose 75, Calcium 8.5, Phosphorus 3.8, Magnesium 2.0, Total Bilirubin 0.3, AST 19, ALT 20, Albumin 2.8 L, CBC w Diff NO MAN DIFF REQ, RBC 3.07 L, MCV 83.3, MCH 27.2, RDW 15.7 H, MPV 8.0, Gran % 60.8, Lymphocytes % 27.1, Monocytes % 9.6 H, Eosinophils % 2.1, Basophils % 0.4 , Absolute Granulocytes 5.1, Absolute Lymphocytes 2.3, Absolute Monocytes 0.8 H , Absolute Eosinophils 0.2, Absolute Basophils 0, PUBS MCHC 32.7 L 09/09/17 1019: Anion Gap 11, Estimated GFR > 60, BUN/Creatinine Ratio 18.3, Phosphorus 2.7, Magnesium 1.7, Troponin I < 0.01, TSH 2.140, Free T4 2.01 H 09/09/17 0610: CBC w Diff NO MAN DIFF REQ, RBC 3.14 L, MCV 83.0, MCH 26.9 L, RDW 15.4 H, MPV 8.1, Gran % 54.7, Lymphocytes % 32.4, Monocytes % 10.3 H, Eosinophils % 2.1, Basophils % 0.5, Absolute Granulocytes 4.2, Absolute Lymphocytes 2.5, Absolute Monocytes 0.8 H, Absolute Eosinophils 0.2, Absolute Basophils 0, PUBS MCHC 32.4 L Assessment/Plan Assessment/Plan [id number]-[id number]-f w/ hx HTN, HLD, hypothyroidism, PAF, & schizophrenia who following evaluation by her neurologist (routine visit) and found to be bradycardic (30s) & hypotensive (systolic BP 90s) prompting ED evaluation. Bradycardia initially felt to be multifactorial and 2/2 medications, including her anti-schizophrenic regimen, low-dose metoprolol, and hypothyroidism. Medications were held, and her HR improved until she went into AF w/ RVR and had marked pauses after being given one dosage of IV metoprolol 2.5. Transcutaneous pacemaker was set to demand at 40 bpm. Fortunately, the duration of the AF was relatively brief & anticoagulation is not an issue at this time. If she returns to AF with RVR will tolerate, as long as she remains hemodynamically stable. Make nothing by mouth after midnight so ppm can be placed tomorrow if necessary. Continue telemetry? Not applicable (In ICU.)
[2017-09-11] VITALS: BP 121/18
[2017-09-11 05:23] LABS: ABSOLUTE BASOPHIL COUNT 0 /CUMM (0.0-0.2); ABSOLUTE EOSINOPHIL COUNT 0.1 /CUMM (0.0-0.7); ABSOLUTE GRANULOCYTE CT 6.9 /CUMM (1.4-6.5); ABSOLUTE LYMPH COUNT 2.4 /CUMM (1.2-3.4); ABSOLUTE MONOCYTE COUNT 0.9 /CUMM (0.10-0.60); BASOPHIL % 0.4 % (0.0-2.0); EOSINOPHIL % 1.3 % (0-5); GRANULOCYTE % 66.7 % (42.2-75.2); HEMATOCRIT 26.6 % (37-47); MEAN CORPUSCULAR HGB CONC 32.4 G/DL (33.0-37.0); MEAN CORPUSCULAR VOLUME 83.2 FL (81.0-99.0); MEAN PLATELET VOLUME 8.3 FL (7.4-10.4); PLATELET COUNT 275 /CUMM (130-400); RBC DISTRIBUTION WIDTH 15.5 % (11.5-14.5); WHITE BLOOD CELL COUNT 10.4 /CUMM (4.8-10.8)
--- NOTE | 2017-09-11 07:43 | PN- Hematology ---
Subjective Subjective: She is doing about the same. She remains bradycardic at times. She denies any pain. Her breathing is not where she wants it to be. She denies any bleeding issues. Review of Systems: Constitutional: Denies: chills, fever. Cardiovascular: Denies: chest pain. Respiratory: Reports: shortness of breath Gastrointestinal: Denies: abdominal pain. Musculoskeletal: Denies: back pain. Neurological/Psychological: Reports: confusion. Hematologic/Endocrine: Denies: bruising, bleeding. All Other Systems: Reviewed and Negative Objective Vital Signs and I&Os Vital Signs Date Time Temp Pulse Resp B/P B/P Pulse O2 O2 Flow FiO2 Mean Ox Delivery Rate 09/11 0000 98.3 56 121/18 94 Room Air 09/10 1600 97.9 42 20 140/70 94 Room Air 09/10 0800 98.3 40 20 122/58 95 Room Air Intake & Output 09/11 0800 09/11 0000 09/10 1600 09/10 0800 09/10 0000 09/09 1600 Intake Total 400 800 150 200 360 190 Output Total 1 Balance 400 800 150 200 360 189 Intake, IV 400 400 150 130 Intake, Oral 400 0 200 360 60 Number 1 2 1 Bowel Movements Output, Urine 1 Physical Exam: General Appearance: no apparent distress, awake, comfortable, thin Head: normal appearance Ears, Nose, Throat: normal pharynx Respiratory: chest non-tender, no respiratory distress, quiet respiration, crackles Cardiovascular: murmur, bradycardia Gastrointestinal: normal bowel sounds, soft, non-tender Extremities: no edema Neurologic/Psych: awake, alert, disoriented to time Skin: intact, warm/dry Current Medications: Current Medications Sig/Fidelia Start time Last Medication Dose Route Stop Time Status Admin Acetaminophen 650 MG Q6P PRN 09/05 1630 AC PO Aspirin 81 MG DAILY 09/06 1000 DC 09/09 PO 0834 Atorvastatin Calcium 80 MG 1700 09/06 1700 AC 09/10 PO 1657 Dextrose/Water 1,000 ML Q20H 09/10 1300 AC 09/10 IV 1427 Enoxaparin Sodium 40 MG DAILY 09/06 1000 DC 09/10 SC 1243 Ferrous Sulfate 325 MG BID 09/07 1000 AC 09/10 PO 2149 Ibuprofen 600 MG Q6P PRN 09/05 1630 AC PO Levothyroxine Sodium 0.075 MG DAILY AC 09/09 0700 AC 09/10 PO 0549 Morphine Sulfate 1 MG Q4P PRN 09/09 2315 AC 09/09 IV 2316 Results Last 24 Hours of Lab Results: Laboratory Tests 09/11 0400 Chemistry Sodium (137 - 145 mmol/L) 139 Potassium (3.5 - 5.1 mmol/L) 3.9 Chloride (98 - 107 mmol/L) 101 Carbon Dioxide (22 - 30 mmol/L) 28 Anion Gap (5 - 16) 10 BUN (7 - 17 mg/dL) 14 Creatinine (0.5 - 1.0 mg/dL) 0.6 Estimated GFR (>60 ml/min) > 60 Glucose (65 - 99 mg/dL) 93 Calcium (8.4 - 10.2 mg/dL) 8.4 Phosphorus (2.5 - 4.5 mg/dL) 3.8 Magnesium (1.6 - 2.3 mg/dL) 1.7 Total Bilirubin (0.2 - 1.3 mg/dL) 0.3 AST (14 - 36 U/L) 21 ALT (9 - 52 U/L) 28 Albumin (3.5 - 5.0 g/dL) 2.8 L TSH (0.270 - 4.200 uIU/mL) 2.370 Free T4 (0.85 - 1.93 ng/dL) 1.54 Hematology CBC w Diff NO MAN DIFF REQ WBC (4.8 - 10.8 /CUMM) 10.4 RBC (4.20 - 5.40 /CUMM) 3.20 L Hgb (12.0 - 16.0 G/DL) 8.6 L Hct (37 - 47 %) 26.6 L MCV (81.0 - 99.0 FL) 83.2 MCH (27.0 - 31.0 PG) 27.0 RDW (11.5 - 14.5 %) 15.5 H Plt Count (130 - 400 /CUMM) 275 MPV (7.4 - 10.4 FL) 8.3 Gran % (42.2 - 75.2 %) 66.7 Lymphocytes % (20.5 - 51.1 %) 23.1 Monocytes % (1.7 - 9.3 %) 8.5 Eosinophils % (0 - 5 %) 1.3 Basophils % (0.0 - 2.0 %) 0.4 Absolute Granulocytes (1.4 - 6.5 /CUMM) 6.9 H Absolute Lymphocytes (1.2 - 3.4 /CUMM) 2.4 Absolute Monocytes (0.10 - 0.60 /CUMM) 0.9 H Absolute Eosinophils (0.0 - 0.7 /CUMM) 0.1 Absolute Basophils (0.0 - 0.2 /CUMM) 0 PUBS MCHC (33.0 - 37.0 G/DL) 32.4 L Assessment/Plan Assessment/Recommendations: Ms. Velasco is an 87-year-old female with schizophrenia, hypertension, hypothyroidism, and chronic anemia who present to the hospital with bradycardia and hypotension. Patient was noted to have severe hypothyroidism. She was also noted to be anemic. She has had chronic anemia since 2014. In January 2017 her hemoglobin was noted to be around 8 to 9 with hematocrit of 24-30. Her platelet count and WBC has always been normal. Her hemoglobin dropped from 8.7 down to 7.5 on admission. Her hematocrit was 27.5 and dropped to 22.8. This has been stable and has not decreased. Her MCV was normal. Her reticulocyte count was 1.48% which is low. Bilirubin is within normal limits. Vitamin B12 was 724. Folate was 5.9. These were normal. LDH was normal. Ferritin was 11.3. Serum iron was 26. TIBC was 380. Per report, stool guaiac was negative. She has no obvious bleeding. Tiffanie test was negative. Review of her previous records noted that she has had blood in stool and declined work up with endoscopy/colonoscopy. She will likely need this work up. Anemia is improving. She seem to have a hypoproliferative anemia. This may be from underlying hypothyroidism from thyroiditis and/or iron deficiency. Normocytic anemia: - continue oral iron 325 mg b.i.d. - treat underlying hypothyroidism - may need outpatient endoscopy/colonoscopy given age, previous GI bleeding, and iron deficiency Hypothyroidism: - continue levothyroxine as Endocrinology Bradycardia: - cardiology following Please call [phone] with any questions or concerns. Problem List: 1. Hypothyroid 2. Thyroiditis 3. Anemia 4. Bradycardia
[2017-09-11 08:00] VITALS: BP 142/80
--- NOTE | 2017-09-11 10:35 | Event Note ---
Event Note Event Note: Subject: Consent for pacemaker placement and anticoagulation Mr Ezequiel Portillo, was contacted for providing consent for pacemaker placemen and anticoagulation. Since the pts, CAROLE who is Ms Mclain daughter is away, he reported that he has authority to make medical decisions. He was initially okay for both pacemaker and anticoagulation, but wanted to think about the pacemaker when called again to get a consent form signed. The daughter is going to be around in town in the night, and would be available around 6 AM. The family would like to discuss with the pt, before making any decisions. Arrangments were made to have a pacemaker inserted in the am by Dr. Fink's team. Called the surgical PA, and also attempted reaching the OR to make sure that the information is relayed to the surgical team to await the response from the family.
--- NOTE | 2017-09-11 10:46 | PN- Att Addend ---
Attending Addendum Attending Brief Note Patient seen and examined. Weekend events noted. Patient's bradycardia was initially presumed to be beta-raeann therapy, hypothyroidism multifactorial secondary to her and antipsychotic medications. Heart rate improved off her medication regimen and with improvement of her hypothyroidism however she went into rapid ventricular response and developed pauses after initiation of 1 dose of beta-raeann therapy. Over the weekend she has continued to become bradycardic requiring intermittent transcutaneous pacing. She also continues to develop rapid ventricular response. She is clearly meets indication for placement of a permanent pacemaker. Patient's daughter who is her power of litigation attorney is in agreement with placement of a permanent pacemaker (according to the daughter's . Daughter was in [facility] and is currently in transit back to [place].) I did speak with the daughter's today who states that patient has a history of schizophrenia dating back to her teenage years. Has had several hospitalizations and inpatient psychiatric facilities. He reports that she has fixed delusions. He reports that her delusions mainly consist of God direct of her life. He gave an example of the patient refusing to use dentures because she believed that her teeth would grow back in. General appearance: Not in acute distress Heart: S1-S2 irregular Lungs: Clear to auscultation bilaterally Abdomen: Soft and nontender Extremities: No pedal edema Skin: Intact Problems: 1. Sick sinus syndrome; with intermittent tachycardia and pauses. 2. Hypothyroidism; secondary to thyroiditis. TSH and free T4 levels are now within normal limits 3. Anemia; status post transfusion of 1 PRBC during this admission. Plan: -Resume diet today and keep patient n.p.o. past midnight for permanent pacemaker placement tomorrow. Discussed with cardiology service, pacemaker will be placed by Gómez Fink MD. -Daughter will be coming tomorrow to confirm consent for the procedure. -Recommend obtain psychiatric consultation to confirm that patient has no decisional capacity. Recommend -Evaluation by the psychiatric service for antipsychotic therapy. Patient's antipsychotic regimen were held on admission as they can cause bradycardia. -H&H has been stable status post transfusion. Stool guaiac is negative. Further workup to be done as an outpatient as patient/family permit. Continue iron supplementation. -Continue anticoagulation with heparin infusion until procedure tomorrow.
--- NOTE | 2017-09-11 10:48 | PN- Resident CRCU ---
Subjective HPI/CRCU Issues: Ms. Velasco is a an 87-year-old female with PMHx of HTN, hypothyroidism, remote history of schizophrenia and SLE not taking steroids since 10 years, was referred by her flight engineer instructor's office for bradycardia with a heart rate in the 40s, and blood pressure of 90/30 mmhg for further management. She was found to have hypothyroidism with TSH of 11.5, for which she was already on a increased level of levothyroxine 88 g prescribed by her flight engineer instructor as her TSH on 08/04/2017 was 53. After she was admitted to the tele floor, for the managment of hypothyroidism secondary to hypothyroidism with LT4. During the course of hospital stay, she developed Afib w/ RVR after which she received a small dose of metoprolol 2.5 mg ; resulting in an acute drop in HR to around 40s with significant pauses and asystole for 12 s. She was placed on TC pacing, and transfered to the ICU. She was being paced every now and then, but has largely remained pacer free. This am, she had no complaints. She denied chest pain, palpitations, shortness of breath, lightheadedness or diaphoresis. 24 Hour Events: Tm 99.6 HR 40-117 Afib on ocaasion BP 107-138/51-67 91-98 RA Ins 1350ml Out put-havent been counting. Objective Vital Signs & I&O Last 8 Hrs of Vitals and I&O: Intake & Output 09/11 1600 Intake Total 583 Output Total Balance 583 Intake, IV 463 Intake, Oral 120 Number 1 Bowel Movements Exam General Appearance: alert Other Physical Findings: General Appearance: well developed/nourished, no apparent distress, alert, AAOx1 Head: atraumatic, normal appearance Eyes: Bilateral: PERRL, EOMI. Ears, Nose, Throat: normal pharynx, normal ENT inspection Neck: normal inspection, supple Respiratory: normal breath sounds, chest non-tender, lungs clear Cardiovascular: normal peripheral pulses, bradycardia, No edema Gastrointestinal: normal bowel sounds, soft, non-tender, no organomegaly Extremities: normal inspection, no edema Neurologic/Psych: no motor/sensory deficits, awake, customer service associate II-XII nml as tested, sedated Cranial Nerves: normal hearing, normal speech, PERRL Current Medications: Current Medications Sig/Fidelia Start time Last Medication Dose Route Stop Time Status Admin Acetaminophen 650 MG Q6P PRN 09/05 1630 AC PO Atorvastatin Calcium 80 MG 1700 09/06 1700 AC 09/12 PO 1603 Cefazolin Sodium 2 GM IQ8 09/12 1600 AC 09/12 N/A 1 UNIT IV 09/13 0029 1603 Dextrose/Sodium 1,000 ML Q20H 09/11 1030 DC 09/11 Chloride IV 1028 Enoxaparin Sodium 90 MG DAILY 09/13 1000 AC SC Fentanyl Citrate 100 MCG .STK-MED ONE 09/12 1023 DC IM 09/12 1024 Ferrous Sulfate 325 MG BID 09/07 1000 AC 09/12 PO 2109 Furosemide 20 MG ONCE ONE 09/12 1445 DC 09/12 IV 09/12 1446 1452 Heparin Sodium 25,000 UNIT Q24H 09/11 1700 DC 09/11 (Porcine) IV 09/12 0600 1806 Sodium Chloride 500 ML Ibuprofen 600 MG Q6P PRN 09/05 1630 AC PO Levothyroxine Sodium 0.075 MG DAILY AC 09/09 0700 AC 09/11 PO 0830 Metoprolol Tartrate 12.5 MG BID 09/13 1000 UNVr PO Metoprolol Tartrate 12.5 MG ONCE ONE 09/12 1600 DC 09/12 PO 09/12 1601 1603 Morphine Sulfate 1 MG Q4P PRN 09/09 2315 AC 09/09 IV 2316 Risperidone 3 MG 2200 09/13 2200 UNVr PO Ziprasidone 40 MG BID 09/13 1000 UNVr PO Impression/Plan Impression/Problem List Impression: Ms Velasco is an 87yr old woman w/ a PMHx of hypertension, hypothyroidism, and schizophrenia who was referred from her her flight engineer instructor office with Hypotension and bradycardia. She was initially admitted in telemetry and monitor atrial fibrillation and tachycardia-bradycardia syndrome. However on account of bradycardia with pauses ranging from 5-12 seconds she was transferred to the ICU yesterday for closer monitoring after pacer pads were applied. Assessment and plan 1. 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 -She remains bradycardic in the 40s -Current bradycardias could be explained by hypothyroidism, but cant clearly be proven otherwise, since treament of sick sinus syndrome with treatment w/ LT4 is usually long for a chronic hypothyroidism. - She doesnt have any symptoms from bradycardia, and unsure if the pacemaker placement will be beneficial for her nor improve survival rate. - Implantation may be considered in minimally symptomatic patients w/ chronic heart rate around 40s while awake. - Defer the decision to the scientist/engineer. - For paroxysmal Afib, she could be anticoagulated for high Chadvasc score. 2. Hypertension - Hold all beta blockers. 3. Schizophrenia - Hold ziprasidone, risperidone. Appreciate psychiatry recommendations 4. Hypothyroidism -Endocrinology input appreciated Her cosyntropin stimulation showed a normal response. -Her levothyroxine dose was decreased to 75 g as per endocrinology since her TSH decreased from 12-4.5 5. Anemia -Patient has an acute drop of hemoglobin after admission. She had 1 unit of blood transfusion after hemoglobin of 7 which improved to 8.7. -Her anemia workup for hemolysis/hypothyroidism was normal. Her vitamin B12 and folic acid level were normal. -Hematology and oncology follow-up appreciated. -Recommended iron and outpatient GI workup with endoscopy given her age -Her anemia can be secondary due to hypothyroidism which causes normocytic and normochromic anemia or any gi bleed though she was guaiac was negative. Code-DNR/DNI Diet-heart healthy diet DVT prophylaxis-heparin iv. Problem List: 1. Bradycardia 2. Hypotension 3. Anemia 4. Thyroiditis 5. Hypothyroid Pain Ratin Tomorrow's Labs & Rationales: icu bundle cbc Plan DVT/Prophylaxis: mechanical Code Status: Do Not Resucitate/Intubat
--- NOTE | 2017-09-11 11:06 | PN- Endocrinology ---
Assessment/Plan Assessment: 87 y/o female with PMHsignificant for schizophrenia and hypothyroidism, was referred to ER for evaluation after she was found to be hypotensive and bradycardic. In addition, she is anemic. She received transfusion on 09/07/2017. Now she is on iron supplement. Her anti TPO was > 1300 and anti Tg was < 15 which are consistent with Joan 's thyroiditis. Repeat am cortisol was 10.5 which is normal. However, ACTH stimulation test was done as well--- 30 mins cortisol 29, 60 mins cortisol 35.7. The patient was transferred to the intensive care unit because of bradycardia. She is on levo thyroxine 75 mcg daily. Repeat TSH 2.37 and free T4 1.54. Plan: continue Levothyroxine 75 mcg daily for now; monitor TFT in 2 weeks; f/u in office after discharge. Subjective Subjective: She feels okay. However, she has had intermittent tachycardia and bradycardia. Objective Last 24 Hrs of Vital Signs/I&O Vital Signs Date Time Temp Pulse Resp B/P B/P Pulse O2 O2 Flow FiO2 Mean Ox Delivery Rate 09/11 0800 95 Room Air 09/11 0800 98.2 114 18 142/80 95 Room Air 09/11 0000 98.3 56 121/18 94 Room Air 09/10 1600 97.9 42 20 140/70 94 Room Air Intake & Output 09/11 1600 09/11 0800 09/11 0000 Intake Total 400 800 Output Total Balance 400 800 Intake, IV 400 400 Intake, Oral 400 Number 1 2 Bowel Movements Results Pertinent Lab/Feroz Results: Laboratory Tests 09/11 0400 Chemistry Sodium (137 - 145 mmol/L) 139 Potassium (3.5 - 5.1 mmol/L) 3.9 Chloride (98 - 107 mmol/L) 101 Carbon Dioxide (22 - 30 mmol/L) 28 Anion Gap (5 - 16) 10 BUN (7 - 17 mg/dL) 14 Creatinine (0.5 - 1.0 mg/dL) 0.6 Estimated GFR (>60 ml/min) > 60 Glucose (65 - 99 mg/dL) 93 Calcium (8.4 - 10.2 mg/dL) 8.4 Phosphorus (2.5 - 4.5 mg/dL) 3.8 Magnesium (1.6 - 2.3 mg/dL) 1.7 Total Bilirubin (0.2 - 1.3 mg/dL) 0.3 AST (14 - 36 U/L) 21 ALT (9 - 52 U/L) 28 Albumin (3.5 - 5.0 g/dL) 2.8 L TSH (0.270 - 4.200 uIU/mL) 2.370 Free T4 (0.85 - 1.93 ng/dL) 1.54 Hematology CBC w Diff NO MAN DIFF REQ WBC (4.8 - 10.8 /CUMM) 10.4 RBC (4.20 - 5.40 /CUMM) 3.20 L Hgb (12.0 - 16.0 G/DL) 8.6 L Hct (37 - 47 %) 26.6 L MCV (81.0 - 99.0 FL) 83.2 MCH (27.0 - 31.0 PG) 27.0 RDW (11.5 - 14.5 %) 15.5 H Plt Count (130 - 400 /CUMM) 275 MPV (7.4 - 10.4 FL) 8.3 Gran % (42.2 - 75.2 %) 66.7 Lymphocytes % (20.5 - 51.1 %) 23.1 Monocytes % (1.7 - 9.3 %) 8.5 Eosinophils % (0 - 5 %) 1.3 Basophils % (0.0 - 2.0 %) 0.4 Absolute Granulocytes (1.4 - 6.5 /CUMM) 6.9 H Absolute Lymphocytes (1.2 - 3.4 /CUMM) 2.4 Absolute Monocytes (0.10 - 0.60 /CUMM) 0.9 H Absolute Eosinophils (0.0 - 0.7 /CUMM) 0.1 Absolute Basophils (0.0 - 0.2 /CUMM) 0 PUBS MCHC (33.0 - 37.0 G/DL) 32.4 L
--- NOTE | 2017-09-11 12:17 | PN- Cardiology ---
Subjective Subjective: Responsive and able to follow commands but has some confusion. Objective Vital Signs and I&Os Vital Signs Date Time Temp Pulse Resp B/P B/P Pulse O2 O2 Flow FiO2 Mean Ox Delivery Rate 09/11 0800 95 Room Air 09/11 0800 98.2 114 18 142/80 95 Room Air 09/11 0000 98.3 56 121/18 94 Room Air 09/10 1600 97.9 42 20 140/70 94 Room Air Intake & Output 09/11 1600 09/11 0800 09/11 0000 09/10 1600 09/10 0800 09/10 0000 Intake Total 400 800 150 200 360 Output Total Balance 400 800 150 200 360 Intake, IV 400 400 150 Intake, Oral 400 0 200 360 Number 1 2 1 Bowel Movements Physical Exam: General: Awake Eyes: No obvious scleral icterus. HEENT: No jugular venous distention or abnormal jugular venous pulsations. Cardiovascular: Normal intensity S1/S2. Irregular tachycardia, pacer pads in place. Respiratory: No rales or rhonchi Abdomen: Soft, nontender with no guarding or rebound tenderness. Musculoskeletal: No clubbing or cyanosis noted Skin: Warm Lymph: No gross lymphadenopathy. Current Medications: Current Medications Sig/Fidelia Start time Last Medication Dose Route Stop Time Status Admin Acetaminophen 650 MG Q6P PRN 09/05 1630 AC PO Aspirin 81 MG DAILY 09/06 1000 DC 09/09 PO 0834 Atorvastatin Calcium 80 MG 1700 09/06 1700 AC 09/10 PO 1657 Dextrose/Sodium 1,000 ML Q20H 09/11 1030 AC 09/11 Chloride IV 1028 Dextrose/Water 1,000 ML Q20H 09/10 1300 DC 09/11 IV 1000 Enoxaparin Sodium 60 MG BID 09/11 1115 AC SC Enoxaparin Sodium 40 MG DAILY 09/06 1000 DC 09/10 SC 1243 Ferrous Sulfate 325 MG BID 09/07 1000 AC 09/11 PO 1021 Ibuprofen 600 MG Q6P PRN 09/05 1630 AC PO Levothyroxine Sodium 0.075 MG DAILY AC 09/09 0700 AC 09/11 PO 0830 Morphine Sulfate 1 MG Q4P PRN 09/09 2315 AC 09/09 IV 2316 Results Last 48 Hrs of Labs/Mics: Laboratory Tests 09/11/17 0400: Anion Gap 10, Estimated GFR > 60, Glucose 93, Calcium 8.4, Phosphorus 3.8, Magnesium 1.7, Total Bilirubin 0.3, AST 21, ALT 28, Albumin 2.8 L, TSH 2.370, Free T4 1.54, CBC w Diff NO MAN DIFF REQ, RBC 3.20 L, MCV 83.2, MCH 27.0, RDW 15.5 H, MPV 8.3, Gran % 66.7, Lymphocytes % 23.1, Monocytes % 8.5, Eosinophils % 1.3, Basophils % 0.4, Absolute Granulocytes 6.9 H, Absolute Lymphocytes 2.4, Absolute Monocytes 0.9 H, Absolute Eosinophils 0.1, Absolute Basophils 0, PUBS MCHC 32.4 L 09/10/17 0420: Anion Gap 10, Estimated GFR > 60, Glucose 75, Calcium 8.5, Phosphorus 3.8, Magnesium 2.0, Total Bilirubin 0.3, AST 19, ALT 20, Albumin 2.8 L, CBC w Diff NO MAN DIFF REQ, RBC 3.07 L, MCV 83.3, MCH 27.2, RDW 15.7 H, MPV 8.0, Gran % 60.8, Lymphocytes % 27.1, Monocytes % 9.6 H, Eosinophils % 2.1, Basophils % 0.4 , Absolute Granulocytes 5.1, Absolute Lymphocytes 2.3, Absolute Monocytes 0.8 H , Absolute Eosinophils 0.2, Absolute Basophils 0, PUBS MCHC 32.7 L Recent Imaging Studies: Telemetry tracings are currently show atrial fibrillation with rapid ventricular response rate Assessment/Plan Assessment/Plan 1. Tachybradycardia syndrome 2. Paroxysmal atrial fibrillation now with recurrence 3. Schizophrenia 4. Hypothyroidism 5. History of hypertension/hyperlipidemia Patient noted to have recurrent episodes of rapid atrial fibrillation and also developed significant bradycardia in response to metoprolol with sustained pauses requiring persistent transcutaneous pacing. She is currently back in atrial fibrillation with rapid ventricular response. Due to significant tachycardia bradycardia syndrome she does meet indication for permanent pacemaker and per the primary team her POA does want her to have a pacemaker; I discussed with CT surgery and this will tentatively be scheduled for tomorrow. She should be nothing by mouth after midnight. Given the recurrent arrhythmias a transthoracic echocardiogram should be obtained. Given her elevated chads Vasc score she is a potential candidate for long-term anticoagulation if her POA wishes; for now can be started on a temporary anticoagulation with either heparin drip or Lovenox to make sure there is no evidence of bleeding with anticoagulation. Would allow for permissive tachycardia for now pending placement of permanent pacemaker. Keep pacer pads in place for now. Cristóbal Jordan MD [facility] Continue telemetry? Yes
[2017-09-11 19:24] LABS: PTT 35 SEC (25-37)
[2017-09-11 20:30] VITALS: BP 102/60
--- NOTE | 2017-09-11 21:12 | Event Note ---
Event Note Event Note: Patient's daughter Rachel Velasco (POA) called back around 8:20pm to give consent for the PPM over the phone. The consent was taken and is placed in the chart. Of note, patient is refusing the pacemaker, but also does not seem to have capacity to make decision. Speaking with donya arita, who is concerned that her psych medicatins be resumed as soon as is feasible. Rachel also wanted her motehr to be given sedatives overnight. Explained to her that this could precipitate delirium and worsen her agitation and dementia even more.Would consider giving her a very low dose in AM prior to surgery. Also explained to her that her psych medications are on hold given her tachy-bradyarrythmia, and that Psych is following the patients. Amara can be reached at any time her cell phone is [phone], and home phone [phone].
[2017-09-12] VITALS: BP 108/60
[2017-09-12 00:53] LABS: PTT 113 SEC (25-37)
[2017-09-12 04:50] LABS: ABSOLUTE BASOPHIL COUNT 0 /CUMM (0.0-0.2); ABSOLUTE EOSINOPHIL COUNT 0.2 /CUMM (0.0-0.7); ABSOLUTE GRANULOCYTE CT 4.2 /CUMM (1.4-6.5); ABSOLUTE LYMPH COUNT 2.3 /CUMM (1.2-3.4); ABSOLUTE MONOCYTE COUNT 0.8 /CUMM (0.10-0.60); BASOPHIL % 0.4 % (0.0-2.0); EOSINOPHIL % 2.7 % (0-5); GRANULOCYTE % 56.3 % (42.2-75.2); HEMATOCRIT 29.3 % (37-47); MEAN CORPUSCULAR HGB 27.2 PG (27.0-31.0); MEAN CORPUSCULAR HGB CONC 32.2 G/DL (33.0-37.0); MEAN CORPUSCULAR VOLUME 84.6 FL (81.0-99.0); MEAN PLATELET VOLUME 8.1 FL (7.4-10.4); PLATELET COUNT 288 /CUMM (130-400); RBC DISTRIBUTION WIDTH 15.8 % (11.5-14.5); RED BLOOD CELL CT 3.47 /CUMM (4.20-5.40); WHITE BLOOD CELL COUNT 7.5 /CUMM (4.8-10.8)
--- NOTE | 2017-09-12 05:50 | PN- Resident CRCU ---
Case Banda 09/12/17 0547: Subjective HPI/CRCU Issues: Ms. Velasco is a an 87-year-old female with PMHx of HTN, hypothyroidism, remote history of schizophrenia and SLE not taking steroids since 10 years, was referred by her key worker's office for bradycardia with a heart rate in the 40s, and blood pressure of 90/30 mmhg for further management. Overnight she did not have any concerns. She had a 4.8 secpause overnight. Did not have any symptoms at the time. She did not have any chest pain, palpitations, lightheadedness. 24 Hour Events: HR 54-145. She was in NSR, and was intermittently in atrial fibrillation. She was also paced, on occassion. BP remained stable. Objective Vital Signs & I&O Last 8 Hrs of Vitals and I&O: Intake & Output 09/12 1600 Intake Total 500 Output Total Balance 500 Intake, IV 500 Number 1 Bowel Movements Exam General Appearance: no apparent distress Other Physical Findings: General Appearance: well developed/nourished, no apparent distress, alert, AAOx1 Head: atraumatic, normal appearance Eyes: Bilateral: PERRL, EOMI. Ears, Nose, Throat: normal pharynx, normal ENT inspection Neck: normal inspection, supple Respiratory: normal breath sounds, chest non-tender, lungs clear Cardiovascular: normal peripheral pulses, bradycardia, No edema Gastrointestinal: normal bowel sounds, soft, non-tender, no organomegaly Extremities: normal inspection, no edema Neurologic/Psych: no motor/sensory deficits, awake, art coordinator II-XII nml as tested, sedated Cranial Nerves: normal hearing, normal speech, PERRL Impression/Plan Impression/Problem List Impression: Ms Velasco is an 87yr old woman w/ a PMHx of hypertension, hypothyroidism, and schizophrenia who was referred from her her key worker office with Hypotension and bradycardia. She was initially admitted in telemetry and monitor atrial fibrillation and tachycardia-bradycardia syndrome. However on account of bradycardia with pauses ranging from 5-12 seconds she was transferred to the ICU yesterday for closer monitoring after pacer pads were applied. Assessment and plan 1. Bradycardia secondary to atrial fibrillation with tachybradycardia syndrome: She has been pacing occassionally: -Current bradycardias could be explained by hypothyroidism, but cant clearly be proven otherwise, since treament of sick sinus syndrome with treatment w/ LT4 is usually long for a chronic hypothyroidism. - As per the cardiology, she will have the single chamber pace maker placed by Dr. Fink. - For paroxysmal Afib, she could be anticoagulated for high Chadvasc score. 2. Hypertension - Hold all beta blockers for now. 3. Schizophrenia- - Hold ziprasidone, risperidone. - Would restart after the pt is more stable. 4. Hypothyroidism -Cosynt test negative. - LT4 75 ug for now. Defer the decision to the endocrinology, if they would like to increase the dose at a later time. 5. Anemia- The reason for this acute drop in the H&H is unclear. It could be due to hypothyroidism causing this drop, which is possible but unlikely. She received 1 unit of PRBC. H&H stable at this time. - Hb 9.4 (09/12). Code-DNR/DNI Diet-heart healthy diet DVT prophylaxis-heparin iv that is on hold right now, which could be restarted in the am(as per surgery ) post PPM placement. Problem List: 1. Hypothyroid 2. Thyroiditis 3. Anemia 4. Hypotension 5. Bradycardia Pain Ratin Tomorrow's Labs & Rationales: cbc- to monitor for any leucocytosis s/p surgery bep- pt has been having arrythmias. Plan Code Status: Do Not Resucitate/Intubat Jordan MCCORMACK,[facility] 09/12/17 1901: Objective Vital Signs & I&O Last 8 Hrs of Vitals and I&O: Intake & Output 09/12 1600 Intake Total 500 Output Total Balance 500 Intake, IV 500 Number 1 Bowel Movements Attending MD Review Statement Attending Sign Off Attending Cosign Statement: I have: examined this patient, [facility], discussd w/resident/PA/ MINING ENGINEERING TECHNOLOGIST, discussed mgmt plan w/pt. Other Findings: Patient seen and examined. PPM placed today without event. Patient resting comfortably post-op with no complaints. Denies pain or SOB. She is hemodynamically stable and mildly tachycardic. On exam the surgical site has an intact dresing over it. Recommendations. -Resume her antipsychotic regimen. -Resume her Beta-Shy therapy. -Due to her paroxysmal Afib and elevated [id number] score she is a candidate for AC therapy. -Will discus with the POA regarding need for laborer marine terminal anticoagulation. Begin ptient on Eliquis tomorrow if cleared by the cardio-thoracic surgery service.
[2017-09-12 08:00] VITALS: BP 120/60
[2017-09-12 09:04] LABS: PT 12.3 SEC (9.4-12.5); PTT 40 SEC (25-37)
--- NOTE | 2017-09-12 09:13 | PN- Cardiology ---
Subjective Subjective: Patient is confused. States that she does not want a pacemaker. CAROLE has provided consent given her dementia Review of Systems: Unobtainable due to dementia Objective Vital Signs and I&Os Vital Signs Date Time Temp Pulse Resp B/P B/P Pulse O2 O2 Flow FiO2 Mean Ox Delivery Rate 09/12 0400 96 Room Air 09/12 0000 95 Room Air 09/12 0000 98.2 95 20 108/60 95 Room Air 09/11 2030 97 Room Air 09/11 2030 98.8 126 20 102/60 97 Room Air 09/11 1600 Room Air 09/11 1200 95 Room Air Intake & Output 09/12 1600 09/12 0800 09/12 0000 09/11 1600 09/11 0800 09/11 0000 Intake Total 506 598 583 400 800 Output Total Balance 506 598 583 400 800 Intake, IV 506 178 463 400 400 Intake, Oral 420 120 400 Number 1 1 2 Bowel Movements Physical Exam: Patient is a well-developed well-nourished female appearing in no acute distress HEENT is unremarkable Neck is supple there is no JVD Lungs are clear Heart irregular rhythm S1 and S2 are normal no murmurs gallops or rubs Abdomen bowel sounds positive Extremities without edema Current Medications: Current Medications Sig/Fidelia Start time Last Medication Dose Route Stop Time Status Admin Acetaminophen 650 MG Q6P PRN 09/05 1630 AC PO Atorvastatin Calcium 80 MG 1700 09/06 1700 AC 09/11 PO 1722 Dextrose/Sodium 1,000 ML Q20H 09/11 1030 AC 09/11 Chloride IV 1028 Dextrose/Water 1,000 ML Q20H 09/10 1300 DC 09/11 IV 1000 Enoxaparin Sodium 60 MG BID 09/11 1115 DC 09/11 SC 1200 Ferrous Sulfate 325 MG BID 09/07 1000 AC 09/11 PO 2126 Heparin Sodium 25,000 UNIT Q24H 09/11 1700 DC 09/11 (Porcine) IV 09/12 0600 1806 Sodium Chloride 500 ML Ibuprofen 600 MG Q6P PRN 09/05 1630 AC PO Levothyroxine Sodium 0.075 MG DAILY AC 09/09 0700 AC 09/11 PO 0830 Morphine Sulfate 1 MG Q4P PRN 09/09 2315 AC 09/09 IV 2316 Results Last 48 Hrs of Labs/Mics: Laboratory Tests 09/12/17 0815: PT 12.3, INR 1.17, APTT 40 H 09/12/17 0800: APTT Cancelled 09/12/17 0400: Anion Gap 11, Estimated GFR > 60, Glucose 91, Calcium 8.7, Phosphorus 3.7, Magnesium 1.7, Total Bilirubin 0.4, AST 24, ALT 23, Albumin 3.0 L, CBC w Diff NO MAN DIFF REQ, RBC 3.47 L, MCV 84.6, MCH 27.2, RDW 15.8 H, MPV 8.1, Gran % 56.3, Lymphocytes % 30.3, Monocytes % 10.3 H, Eosinophils % 2.7, Basophils % 0.4, Absolute Granulocytes 4.2, Absolute Lymphocytes 2.3, Absolute Monocytes 0.8 H, Absolute Eosinophils 0.2, Absolute Basophils 0, PUBS MCHC 32.2 L 09/12/17 0011: APTT 113 *H 09/11/17 1750: APTT 35 09/11/17 0400: Anion Gap 10, Estimated GFR > 60, Glucose 93, Calcium 8.4, Phosphorus 3.8, Magnesium 1.7, Total Bilirubin 0.3, AST 21, ALT 28, Albumin 2.8 L, TSH 2.370, Free T4 1.54, CBC w Diff NO MAN DIFF REQ, RBC 3.20 L, MCV 83.2, MCH 27.0, RDW 15.5 H, MPV 8.3, Gran % 66.7, Lymphocytes % 23.1, Monocytes % 8.5, Eosinophils % 1.3, Basophils % 0.4, Absolute Granulocytes 6.9 H, Absolute Lymphocytes 2.4, Absolute Monocytes 0.9 H, Absolute Eosinophils 0.1, Absolute Basophils 0, PUBS MCHC 32.4 L Telemetry personally reviewed atrial fibrillation with intermittent rapid ventricular response along with up to 4.8 second pauses Assessment/Plan Assessment/Plan 1. Tachybradycardia syndrome 2. Paroxysmal atrial fibrillation now with recurrence 3. Schizophrenia 4. Hypothyroidism 5. History of hypertension/hyperlipidemia Recommendations 1. Given her tachybradycardia syndrome a pacemaker is implanted. Given her age , dementia, and overall deconditioning will plan for a single-chamber device. This will be performed today. 2. Echocardiogram is still pending 3. Given her elevated CHADS2-Vasc score she would be a candidate for long-term anticoagulation if the POA agrees Continue telemetry? Yes
--- NOTE | 2017-09-12 11:11 | PN- Psychiatry ---
Assessment/Plan Impression: The question is:"Does the patient have capacity to consent to, or refuse, placement of a pacemaker, indicated for tachybrady syndrome." 87F appearing her stated age, lying in bed. she is DNR/DNI. She is edentulous, with nursing holding her teeth for now. She is calm and in no apparent distress. She agrees to this interview and accepts the explanation that the purpose is to assess her memory and cognitive ability. Part way thorugh the MMSE, she objects to the number of questions, but agrees to continue. Folstein/MMSE score today is 16/27, suggesting moderate cognitive impairment. Deficits in orientation, recall, two-stage command; she states she is unable to perform attention and calculation, write a sentence or copy a design, which are not included in the total, above. Original is with nursing awaiting return of her chart. Elements of capacity: 1. Communicating a choice: The patient is able to communicate verbally, and indicates her preferred treatment option, which is to not have the pacemaker placed. 2. Understand the relevant information: At first, she states that she did not want a transplant. After a brief explanation of the purpose of the pacemaker, including R/B/SE, she states, "I want to think clearly. It [pacemaker placement] will interfere with my creative juices." 3. Appreciate the situation and its consequences: She believes that there is nothing wrong with her health now, although she states that the reason for her hospitalization is her slow heartbeat. She does not believe she needs any type of treatment. 4. 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 The patient does not have capacity to make a decision about the proposed pacemaker placement, as her cognitive evaluation shows probable moderate impairment. Her understanding of the proposed treatment, her appreciation of the consequences and her reasoning are not rational. Suggestion: As Dr. Holly suggested on 09/09/17 during her initial evaluation: 1. Continue to hold psychiatric medications (risperidone, ziprasidone) at this time until medically stable then would discuss restart of only necessary medications and reduce polypharmacy as much as possible. 2. Would consider need for both risperidone and ziprazidone in this elderly woman. 3. Would monitor for any reversible causes of AMS vs baseline dementia, additional collateral may prove helpful in establishing cognitive baseline. Consider urinalysis, urine toxicology, head imaging. 4. Would avoid benzodiazepines and anticholiergics as much as possible Please resconsult if other psychiatric matters arise. Thank you for this consult. Subjective Subjective: Alert, oriented to person, day, month, season, year, place, state, but not date, president, town, floor, county. She denies VH and endorses hearing Zay speak to her, but is unable to state when she is being told. Would not rule out AH, at this time. The patient denies any history of schizophrenia. Objective Last 24 Hrs of Vital Signs/I&O Vital Signs Date Time Temp Pulse Resp B/P B/P Pulse O2 O2 Flow FiO2 Mean Ox Delivery Rate 09/12 0800 97 Room Air Room Air 09/12 0800 98.3 54 20 120/60 96 Room Air Room Air 09/12 0400 96 Room Air 09/12 0000 95 Room Air 09/12 0000 98.2 95 20 108/60 95 Room Air 09/11 2030 97 Room Air 09/11 2030 98.8 126 20 102/60 97 Room Air 09/11 1600 Room Air 09/11 1200 95 Room Air Intake & Output 09/12 1600 09/12 0800 09/12 0000 Intake Total 506 598 Output Total Balance 506 598 Intake, IV 506 178 Intake, Oral 420 Physical Exam: Not performed Physical Exam General Appearance: no apparent distress, alert, awake Neurologic/Psychiatric: awake, alert, Gross tremor, Perioral mouth movement, including tongue rolling Current Medications: Current Medications Sig/Fidelia Start time Last Medication Dose Route Stop Time Status Admin Acetaminophen 650 MG Q6P PRN 09/05 1630 AC PO Atorvastatin Calcium 80 MG 1700 09/06 1700 AC 09/11 PO 1722 Dextrose/Sodium 1,000 ML Q20H 09/11 1030 AC 09/11 Chloride IV 1028 Enoxaparin Sodium 60 MG BID 09/11 1115 DC 09/11 SC 1200 Ferrous Sulfate 325 MG BID 09/07 1000 AC 09/11 PO 2126 Heparin Sodium 25,000 UNIT Q24H 09/11 1700 DC 09/11 (Porcine) IV 09/12 0600 1806 Sodium Chloride 500 ML Ibuprofen 600 MG Q6P PRN 09/05 1630 AC PO Levothyroxine Sodium 0.075 MG DAILY AC 09/09 0700 AC 09/11 PO 0830 Morphine Sulfate 1 MG Q4P PRN 09/09 2315 AC 09/09 IV 2316 At home, med claim shows risperidone 3 mg PO daily, ziprasicone 40 mg PO 2X/day, both prescribed since February,. No identification of prescriber. Both are being held. Results Last 24 Hrs of Labs/Mics: Laboratory Tests 09/12 09/12 09/12 0815 0800 0400 Chemistry Sodium (137 - 145 mmol/L) 140 Potassium (3.5 - 5.1 mmol/L) 3.6 Chloride (98 - 107 mmol/L) 103 Carbon Dioxide (22 - 30 mmol/L) 25 Anion Gap (5 - 16) 11 BUN (7 - 17 mg/dL) 13 Creatinine (0.5 - 1.0 mg/dL) 0.5 Estimated GFR (>60 ml/min) > 60 Glucose (65 - 99 mg/dL) 91 Calcium (8.4 - 10.2 mg/dL) 8.7 Phosphorus (2.5 - 4.5 mg/dL) 3.7 Magnesium (1.6 - 2.3 mg/dL) 1.7 Total Bilirubin (0.2 - 1.3 mg/dL) 0.4 AST (14 - 36 U/L) 24 ALT (9 - 52 U/L) 23 Albumin (3.5 - 5.0 g/dL) 3.0 L Coagulation PT (9.4 - 12.5 SEC) 12.3 INR (0.90 - 1.19) 1.17 APTT (25 - 37 SEC) 40 H Cancelled Hematology CBC w Diff NO MAN DIFF REQ WBC (4.8 - 10.8 /CUMM) 7.5 RBC (4.20 - 5.40 /CUMM) 3.47 L Hgb (12.0 - 16.0 G/DL) 9.4 L Hct (37 - 47 %) 29.3 L MCV (81.0 - 99.0 FL) 84.6 MCH (27.0 - 31.0 PG) 27.2 RDW (11.5 - 14.5 %) 15.8 H Plt Count (130 - 400 /CUMM) 288 MPV (7.4 - 10.4 FL) 8.1 Gran % (42.2 - 75.2 %) 56.3 Lymphocytes % (20.5 - 51.1 %) 30.3 Monocytes % (1.7 - 9.3 %) 10.3 H Eosinophils % (0 - 5 %) 2.7 Basophils % (0.0 - 2.0 %) 0.4 Absolute Granulocytes (1.4 - 6.5 /CUMM) 4.2 Absolute Lymphocytes (1.2 - 3.4 /CUMM) 2.3 Absolute Monocytes (0.10 - 0.60 /CUMM) 0.8 H Absolute Eosinophils (0.0 - 0.7 /CUMM) 0.2 Absolute Basophils (0.0 - 0.2 /CUMM) 0 PUBS MCHC (33.0 - 37.0 G/DL) 32.2 L 09/12 09/11 0011 1750 Coagulation APTT (25 - 37 SEC) 113 *H 35 Recent Imaging Studies: No head imaging available.
--- NOTE | 2017-09-12 12:56 | RADIOLOGY REPORT ---
EXAMINATION: XR PORTABLE CHEST CLINICAL INFORMATION: In PACU status post pacemaker. COMPARISON: 09/05/2017, 6:57 PM. TECHNIQUE: Portable frontal view of the chest was obtained. FINDINGS: Again noted is the left retrocardiac density which may represent the large hiatal hernia noted on prior studies. Also noted is a soft tissue density in the right paratracheal region of the right pulmonary apex, which is not well visualized on prior studies due to patient rotation. No new focal areas of airspace opacification are noted, however there is prominence of the pulmonary interstitial markings suggestive of pulmonary vascular congestion. There is interval placement of a pacemaker in the left upper chest with a single lead. There is no evidence of pneumothorax or pleural effusion. IMPRESSION: Interval placement of a pacemaker. There is mild pulmonary vascular congestion, no evidence of pneumothorax.
--- NOTE | 2017-09-12 13:14 | RADIOLOGY REPORT ---
EXAMINATION: Intraoperative fluoroscopy CLINICAL INFORMATION: Pacemaker placement by Dr. Fink. COMPARISON: Chest x-ray 09/05/2017 TECHNIQUE: Intraoperative fluoroscopy was provided for use by Dr. Fink. A total of 2 images were saved to PACS. TOTAL FLUOROSCOPIC TIME: 4.5 minutes FINDINGS\E\IMPRESSION: Intraoperative fluoroscopy provided for use by Dr. Fink. Please see operative note for detailed findings.
--- NOTE | 2017-09-12 13:59 | Transfer of Care Summary ---
Hospital Course Course Hospital Course: Ms Velasco is an 87yr old woman w/ a PMHx of hypertension, hypothyroidism, and schizophrenia who was referred from her her manual arts therapy teacher office with Hypotension and bradycardia. She was initially admitted in telemetry and monitor atrial fibrillation and tachycardia-bradycardia syndrome. ICU course: Ms Velasco was transferred to the ICU when she was found to be bradycardic HR ~ 40s, associated w/ two episodes of asystole of 5 s and 12 s after she was administered w/ metoprolol 2.5mg intravenously for the tx of Atrial fibrillation w/ RVR( HR ~140s). As per the pt, she was asymptomatic at all times, and did not have any CP/palpitations/SOB/lightheadedness. Transcutaneous pacer pads were immediately placed set to demand at 40 bpm with current output set to 40 mA. She was paced at several occasions, while she was in the ICU, but remained asymptomatic. Etiology for her transient bradycardia was thought of being multifactorial- drugs such as anti-psychotics, bet-blockers, and hypothyroidism. She remained in NSR, but occasionally flipped towards being in Afib transiently. After discussing w/ the cardiologt, Dr. Jordan anticoagulation was started since she has high [id number] score. She remained hemodynamically stable, and TTE revealed normal LV function with LVH, aortic sclerosis w/o stenosis, and no pulm HTN. It was ascertained that she would likely benefit from a PPM for the tx of sick sinus syndrome besides discontinuing the offending drugs if any, although she was completely asymptomatic at all times, which is a one of the primary indications for a PPM placement. Considering her mental health issues, it wasnt sure if she was able to clearly report the symptoms. After reviewing the risks vs benefits of placement of a pacemaker with the pts POA(pt was unable to make decision ), single chamber PPM was placed by our CT surgeon, Dr Fink without any complications. All her medications were restarted, and deferred the decision to continue AC to the family. Significant Procedures: MRI compatible VVI pacemaker Pre-Operative Diagnosis: Tachybradycardia syndrome with symptomatic bradycardia After placement of monitoring lines patient's left chest and shoulder area were prepped and draped in a sterile fashion. 1% lidocaine is used local anesthetic. Incision was made in the deltopectoral groove and carried down to pre- pectoralis fascia. The deltopectoral groove was explored and there was no cephalic vein found. The patient was then placed in Trendelenburg position and the subclavian vein was cannulated with a needle and a wire was passed into the right atrium. Sheath dilator was passed over the wire and a Medtronic pacemaker lead model # [id number] was then advanced into the pulmonary outflow track under fluoroscopic guidance. It was withdrawn into the right ventricular chamber and positioned at the apex. R waves were sensed at 5.1 mV. The pacing threshold was at 0.4 V with a current of 0.3 mA and an impedance of 1571 ohms. The leads were secured to the soft tissue and pectoralis fascia with Ethibond sutures. A pacemaker pocket was then made with electrocautery. Hemostasis was achieved with electrocautery. The pocket was irrigated with antibiotic irrigation. The lead was then connected to a MRI compatible single chamber Medtronic pacemaker. The pocket was closed with a running Vicryl suture followed by running Vicryl subcuticular suture. It was dressed with a dry sterile dressing and a pressure dressing. The patient tolerated the procedure well and was brought to the recovery room in stable condition. Assessment/Plan: as above.
--- NOTE | 2017-09-12 14:01 | PN- Thoracic Surgery ---
Subjective Subjective: sp pacemaker placement, no complaints. no pain, no sob, no cp, no palp. Objective Vital Signs and I&Os Vital Signs Date Time Temp Pulse Resp B/P B/P Pulse O2 O2 Flow FiO2 Mean Ox Delivery Rate 09/12 0800 97 Room Air Room Air 09/12 0800 98.3 54 20 120/60 96 Room Air Room Air 09/12 0400 96 Room Air 09/12 0000 95 Room Air 09/12 0000 98.2 95 20 108/60 95 Room Air 09/11 2029 97 Room Air 09/11 2029 98.8 126 20 102/60 97 Room Air 09/11 1600 Room Air Intake & Output 09/12 1600 09/12 0800 09/12 0000 09/11 1600 09/11 0800 09/11 0000 Intake Total 506 598 583 400 800 Output Total Balance 506 598 583 400 800 Intake, IV 506 178 463 400 400 Intake, Oral 420 120 400 Number 1 1 2 Bowel Movements Physical Exam: Well-developed well-nourished no apparent distress. HEENT: Atraumatic, extraocular motion intact Neck: Supple, no lymphadenopathy Respiratory: No respiratory distress Heart: regular rate and rhythm, dressing over pacemaker site is clean dry and intact, nontender Extremities: No edema, no calf pain Neuro: Alert and oriented x3 Psych: Mood affect normal, normal memory normal judgment. Skin: Warm and dry, no rash on exposed skin Results Last 48 Hours of Labs: Laboratory Tests 09/12 09/12 09/12 0815 0800 0400 Chemistry Sodium (137 - 145 mmol/L) 140 Potassium (3.5 - 5.1 mmol/L) 3.6 Chloride (98 - 107 mmol/L) 103 Carbon Dioxide (22 - 30 mmol/L) 25 Anion Gap (5 - 16) 11 BUN (7 - 17 mg/dL) 13 Creatinine (0.5 - 1.0 mg/dL) 0.5 Estimated GFR (>60 ml/min) > 60 Glucose (65 - 99 mg/dL) 91 Calcium (8.4 - 10.2 mg/dL) 8.7 Phosphorus (2.5 - 4.5 mg/dL) 3.7 Magnesium (1.6 - 2.3 mg/dL) 1.7 Total Bilirubin (0.2 - 1.3 mg/dL) 0.4 AST (14 - 36 U/L) 24 ALT (9 - 52 U/L) 23 Albumin (3.5 - 5.0 g/dL) 3.0 L Coagulation PT (9.4 - 12.5 SEC) 12.3 INR (0.90 - 1.19) 1.17 APTT (25 - 37 SEC) 40 H Cancelled Hematology CBC w Diff NO MAN DIFF REQ WBC (4.8 - 10.8 /CUMM) 7.5 RBC (4.20 - 5.40 /CUMM) 3.47 L Hgb (12.0 - 16.0 G/DL) 9.4 L Hct (37 - 47 %) 29.3 L MCV (81.0 - 99.0 FL) 84.6 MCH (27.0 - 31.0 PG) 27.2 RDW (11.5 - 14.5 %) 15.8 H Plt Count (130 - 400 /CUMM) 288 MPV (7.4 - 10.4 FL) 8.1 Gran % (42.2 - 75.2 %) 56.3 Lymphocytes % (20.5 - 51.1 %) 30.3 Monocytes % (1.7 - 9.3 %) 10.3 H Eosinophils % (0 - 5 %) 2.7 Basophils % (0.0 - 2.0 %) 0.4 Absolute Granulocytes (1.4 - 6.5 /CUMM) 4.2 Absolute Lymphocytes (1.2 - 3.4 /CUMM) 2.3 Absolute Monocytes (0.10 - 0.60 /CUMM) 0.8 H Absolute Eosinophils (0.0 - 0.7 /CUMM) 0.2 Absolute Basophils (0.0 - 0.2 /CUMM) 0 PUBS MCHC (33.0 - 37.0 G/DL) 32.2 L 09/12 09/11 09/11 0011 1750 0400 Chemistry Sodium (137 - 145 mmol/L) 139 Potassium (3.5 - 5.1 mmol/L) 3.9 Chloride (98 - 107 mmol/L) 101 Carbon Dioxide (22 - 30 mmol/L) 28 Anion Gap (5 - 16) 10 BUN (7 - 17 mg/dL) 14 Creatinine (0.5 - 1.0 mg/dL) 0.6 Estimated GFR (>60 ml/min) > 60 Glucose (65 - 99 mg/dL) 93 Calcium (8.4 - 10.2 mg/dL) 8.4 Phosphorus (2.5 - 4.5 mg/dL) 3.8 Magnesium (1.6 - 2.3 mg/dL) 1.7 Total Bilirubin (0.2 - 1.3 mg/dL) 0.3 AST (14 - 36 U/L) 21 ALT (9 - 52 U/L) 28 Albumin (3.5 - 5.0 g/dL) 2.8 L TSH (0.270 - 4.200 uIU/mL) 2.370 Free T4 (0.85 - 1.93 ng/dL) 1.54 Coagulation APTT (25 - 37 SEC) 113 *H 35 Hematology CBC w Diff NO MAN DIFF REQ WBC (4.8 - 10.8 /CUMM) 10.4 RBC (4.20 - 5.40 /CUMM) 3.20 L Hgb (12.0 - 16.0 G/DL) 8.6 L Hct (37 - 47 %) 26.6 L MCV (81.0 - 99.0 FL) 83.2 MCH (27.0 - 31.0 PG) 27.0 RDW (11.5 - 14.5 %) 15.5 H Plt Count (130 - 400 /CUMM) 275 MPV (7.4 - 10.4 FL) 8.3 Gran % (42.2 - 75.2 %) 66.7 Lymphocytes % (20.5 - 51.1 %) 23.1 Monocytes % (1.7 - 9.3 %) 8.5 Eosinophils % (0 - 5 %) 1.3 Basophils % (0.0 - 2.0 %) 0.4 Absolute Granulocytes (1.4 - 6.5 /CUMM) 6.9 H Absolute Lymphocytes (1.2 - 3.4 /CUMM) 2.4 Absolute Monocytes (0.10 - 0.60 /CUMM) 0.9 H Absolute Eosinophils (0.0 - 0.7 /CUMM) 0.1 Absolute Basophils (0.0 - 0.2 /CUMM) 0 PUBS MCHC (33.0 - 37.0 G/DL) 32.4 L Recent Imaging Studies: PATIENT: DORON THORPE PRESENT AGE: 87 PATIENT ACCOUNT NO: [id number] : [birth year] LOCATION: [facility] ORDERING PHYSICIAN: Gómez Fink Jr., MD SERVICE DATE: 09/12/179 EXAM TYPE: RAD - XRY-PORTABLE CHEST XRAY EXAMINATION: XR PORTABLE CHEST CLINICAL INFORMATION: In PACU status post pacemaker. COMPARISON: 09/05/2017, 6:57 PM. TECHNIQUE: Portable frontal view of the chest was obtained. FINDINGS: Again noted is the left retrocardiac density which may represent the large hiatal hernia noted on prior studies. Also noted is a soft tissue density in the right paratracheal region of the right pulmonary apex, which is not well visualized on prior studies due to patient rotation. No new focal areas of airspace opacification are noted, however there is prominence of the pulmonary interstitial markings suggestive of pulmonary vascular congestion. There is interval placement of a pacemaker in the left upper chest with a single lead. There is no evidence of pneumothorax or pleural effusion. IMPRESSION: Interval placement of a pacemaker. There is mild pulmonary vascular congestion, no evidence of pneumothorax. DICTATED BY: Dominique Wallace MD DATE/TIME DICTATED:09/12/171237 OFFICIAL [address] INTERPRETER:RENALDO DATE/TIME TRANSCRIBED:09/12/171237 Assessment/Plan Assessment/Plan Status post pacemaker placement for tachybradycardia syndrome surgically stable. Chest x-ray performed, EKG shows paced rhythm regular diet 2 doses of perioperative abx w ancef 2g IV q8 OK to restart lovenox tomorrow. Core Measures Venous Thromboembolism VTE Risk Factors Age>40 No Mechanical VTE Prophylaxis d/t Other No VTE Pharm Prophylaxis d/t Other
--- NOTE | 2017-09-12 14:01 | Cons- Thoracic Surgery ---
General Information and HPI Consulting Request Date of Consult: 09/11/17 Requested By: Myah Ortega MD Reason for Consult: Possible pacemaker for symptomatic bradycardia Source of Information: old records, PCP Exam Limitations: unable to give history, clinical condition, confusion History of Present Illness: The patient is an 87-year-old woman with a history of schizophrenia who was found to be bradycardic and hypotensive on outpatient evaluation. She was admitted and various medication changes were made. She has had tachybradycardia syndrome with paroxysms of rapid atrial fibrillation. Upon initiation of beta raeann therapy she has become profoundly bradycardic with hypotension. Referral was made for permanent pacemaker placement. Allergies/Medications Allergies: Coded Allergies: No Known Allergies (09/05/17) Home Med List: Aspirin (Aspirin*) 81 MG TAB.CHEW 1 TAB PO DAILY cad (Reported) Atorvastatin Calcium (Lipitor) 80 MG TABLET 1 TAB PO DAILY cholesterol ( Reported) Ferrous Sulfate 325 MG (65 MG IRON) TABLET.DR 325 MG PO BID anemia Levothyroxine Sodium 88 MCG TABLET 1 TAB PO DAILY thyroid (Reported) Levothyroxine Sodium 75 MCG TABLET 1 TAB PO DAILY hypothyroid Metoprolol Tartrate 25 MG TABLET 0.5 TAB PO BID htn (Reported) Risperidone (Risperdal) 3 MG TABLET 1 TAB PO QPM mental health (Reported) Ziprasidone HCl (Geodon) 40 MG CAPSULE 1 CAP PO BID mental health (Reported) Current Medications: Current Medications Sig/Fidelia Start time Last Medication Dose Route Stop Time Status Admin Acetaminophen 650 MG Q6P PRN 09/05 1630 AC PO Atorvastatin Calcium 80 MG 1700 09/06 1700 AC 09/11 PO 1722 Cefazolin Sodium 2 GM IQ8 09/12 1600 AC N/A 1 UNIT IV 09/13 0029 Dextrose/Sodium 1,000 ML Q20H 09/11 1030 AC 09/11 Chloride IV 1028 Enoxaparin Sodium 60 MG BID 09/11 1115 DC 09/11 SC 1200 Ferrous Sulfate 325 MG BID 09/07 1000 AC 09/11 PO 2126 Heparin Sodium 25,000 UNIT Q24H 09/11 1700 DC 09/11 (Porcine) IV 09/12 0600 1806 Sodium Chloride 500 ML Ibuprofen 600 MG Q6P PRN 09/05 1630 AC PO Levothyroxine Sodium 0.075 MG DAILY AC 09/09 0700 AC 09/11 PO 0830 Morphine Sulfate 1 MG Q4P PRN 09/09 2315 AC 09/09 IV 2316 Past History Medical History Blood Transfusion Hx: No Neurological: NONE EENT: DENIES Cardiovascular: hypertension Respiratory: NONE Gastrointestinal: NONE Hepatic: NONE Renal: DENIES Musculoskeletal: DENIES Psychiatric: schizophrenia Endocrine: hypothyroidism Blood Disorders: DENIES Cancer(s): DENIES TALENT ASSISTANT/Reproductive: DENIES Surgical History Pertinent Surgical History: unobtainable Family History Relations & Conditions If Any: Relation not specified for: *No pertinent family history Psychosocial History Where Do You Live[facility] Who Do You Live With? self Services at Home: Nursing Primary Language: German Smoking Status: Former Smoker ETOH Use: denies use Illicit Drug Use: denies illicit drug use Functional Ability ADLs Independent: dressing, eating, toileting, bathing. Ambulation: walker IADLs Needs Assist: shopping, housework, finances, food prep, telephone, transportation, medication admin. Review of Systems Review of Systems: Review of systems really is not obtainable as the patient is uncooperative with any questioning at the bedside today. Exam & Diagnostic Data Vital Signs and I&O Vital Signs Date Time Temp Pulse Resp B/P B/P Pulse O2 O2 Flow FiO2 Mean Ox Delivery Rate 09/12 0800 97 Room Air Room Air 09/12 0800 98.3 54 20 120/60 96 Room Air Room Air 09/12 0400 96 Room Air 09/12 0000 95 Room Air 09/12 0000 98.2 95 20 108/60 95 Room Air 09/11 2030 97 Room Air 09/11 2030 98.8 126 20 102/60 97 Room Air 09/11 1600 Room Air Intake & Output 09/12 1600 09/12 0800 09/12 0000 09/11 1600 09/11 0800 09/11 0000 Intake Total 506 598 583 400 800 Output Total Balance 506 598 583 400 800 Intake, IV 506 178 463 400 400 Intake, Oral 420 120 400 Number 1 1 2 Bowel Movements Physical Exam: On examination she is sitting up in bed and is interactive. She does not appear oriented to time or place. Her skin is warm and well perfused no suspicious lesions noted. The sclerae are anicteric and mucous membranes are moist. There is no cervical or supraclavicular lymphadenopathy. Her breath sounds are clear bilaterally with no wheezes rhonchi noted. The cardiac exam shows an irregular tachycardia with no murmurs or extra sounds. The abdomen is soft and nontender with no masses. Periphery shows no cyanosis clubbing or edema. Her neurologic exam is grossly normal motor and sensory function. Last 24 Hours of Labs: Laboratory Tests 09/12 09/12 09/12 0815 0800 0400 Chemistry Sodium (137 - 145 mmol/L) 140 Potassium (3.5 - 5.1 mmol/L) 3.6 Chloride (98 - 107 mmol/L) 103 Carbon Dioxide (22 - 30 mmol/L) 25 Anion Gap (5 - 16) 11 BUN (7 - 17 mg/dL) 13 Creatinine (0.5 - 1.0 mg/dL) 0.5 Estimated GFR (>60 ml/min) > 60 Glucose (65 - 99 mg/dL) 91 Calcium (8.4 - 10.2 mg/dL) 8.7 Phosphorus (2.5 - 4.5 mg/dL) 3.7 Magnesium (1.6 - 2.3 mg/dL) 1.7 Total Bilirubin (0.2 - 1.3 mg/dL) 0.4 AST (14 - 36 U/L) 24 ALT (9 - 52 U/L) 23 Albumin (3.5 - 5.0 g/dL) 3.0 L Coagulation PT (9.4 - 12.5 SEC) 12.3 INR (0.90 - 1.19) 1.17 APTT (25 - 37 SEC) 40 H Cancelled Hematology CBC w Diff NO MAN DIFF REQ WBC (4.8 - 10.8 /CUMM) 7.5 RBC (4.20 - 5.40 /CUMM) 3.47 L Hgb (12.0 - 16.0 G/DL) 9.4 L Hct (37 - 47 %) 29.3 L MCV (81.0 - 99.0 FL) 84.6 MCH (27.0 - 31.0 PG) 27.2 RDW (11.5 - 14.5 %) 15.8 H Plt Count (130 - 400 /CUMM) 288 MPV (7.4 - 10.4 FL) 8.1 Gran % (42.2 - 75.2 %) 56.3 Lymphocytes % (20.5 - 51.1 %) 30.3 Monocytes % (1.7 - 9.3 %) 10.3 H Eosinophils % (0 - 5 %) 2.7 Basophils % (0.0 - 2.0 %) 0.4 Absolute Granulocytes (1.4 - 6.5 /CUMM) 4.2 Absolute Lymphocytes (1.2 - 3.4 /CUMM) 2.3 Absolute Monocytes (0.10 - 0.60 /CUMM) 0.8 H Absolute Eosinophils (0.0 - 0.7 /CUMM) 0.2 Absolute Basophils (0.0 - 0.2 /CUMM) 0 PUBS MCHC (33.0 - 37.0 G/DL) 32.2 L 09/12 09/11 0011 1750 Coagulation APTT (25 - 37 SEC) 113 *H 35 Assessment/Plan Assessment/Plan The patient is an 87-year-old woman with synthetic bradycardia in the setting of tachybradycardia syndrome. I have spent a good deal of time speaking with her authorizer and given her clinical situation the feeling is that a single- chamber VVI pacemaker is best given her bedridden condition and mental status issues. The risks and benefits of the procedure been explained to the power of prosecuting attorney who understands and agrees. We will proceed on 09/12/2017 with a with an MRI compatible single lead VVI pacemaker. End of dictation Consult Acknowledgment - Thank you for your consult request.
--- NOTE | 2017-09-12 15:55 | Operative Report ---
Operative/Inv Procedure Report Surgery Date: 09/12/17 Name of Procedure: MRI compatible VVI pacemaker Pre-Operative Diagnosis: Tachybradycardia syndrome with symptomatic bradycardia Post-Operative Diagnosis: Same Estimated Blood Loss: scant Surgeon/Mortising Machine Operator: Gómez Fink Anesthesia: local monitored anesthesi Operative/Procedure Note Note: After placement of monitoring lines patient's left chest and shoulder area were prepped and draped in a sterile fashion. 1% lidocaine is used local anesthetic. Incision was made in the deltopectoral groove and carried down to pre- pectoralis fascia. The deltopectoral groove was explored and there was no cephalic vein found. The patient was then placed in Trendelenburg position and the subclavian vein was cannulated with a needle and a wire was passed into the right atrium. Sheath dilator was passed over the wire and a Medtronic pacemaker lead model # 113149 was then advanced into the pulmonary outflow track under fluoroscopic guidance. It was withdrawn into the right ventricular chamber and positioned at the apex. R waves were sensed at 5.1 mV. The pacing threshold was at 0.4 V with a current of 0.3 mA and an impedance of 1571 ohms. The leads were secured to the soft tissue and pectoralis fascia with Ethibond sutures. A pacemaker pocket was then made with electrocautery. Hemostasis was achieved with electrocautery. The pocket was irrigated with antibiotic irrigation. The lead was then connected to a MRI compatible single chamber Medtronic pacemaker. The pocket was closed with a running Vicryl suture followed by running Vicryl subcuticular suture. It was dressed with a dry sterile dressing and a pressure dressing. The patient tolerated the procedure well and was brought to the recovery room in stable condition. CC: Kosta MCCORMACK,John Valdes
[2017-09-12 16:30] VITALS: BP 122/64
--- NOTE | 2017-09-12 16:36 | ECHOCARDIOGRAM REPORT ---
DORON THORPE Age: 87 : 1930 Gender: F Exam Date: 09/11/2017 15:37 Exam Location: [facility] Ht (in): 63 Wt (lb): 132 BSA: 1.64 BP: 142 / 80 Ordering Physician: Case Banda MD Referring Physician: Juaquin Jordan M.D. Technologist: Geetha Jaramillo RDCS Room Number: 112 Indications: ARRHYTHMIAS Rhythm: Atrial fibrillation Technical Quality: poor FINDINGS Left Ventricle Normal size left ventricle. Left ventricular wall thickness moderately increased. Normal left ventricular ejection fraction estimated at 60-65%. Right Ventricle Normal right ventricular size and function. Right Atrium Normal right atrial size. Left Atrium Left atrial size at the upper limits of normal. Mitral Valve Mild mitral annular calcification. Trace to mild mitral regurgitation. Aortic Valve Aortic sclerosis. Tricuspid Valve Tricuspid valve is normal in structure and function. Mild tricuspid regurgitation. Right ventricular systolic pressure estimated to be at upper limits of normal 38 mmHg. Pulmonic Valve Pulmonic valve not well visualized, grossly normal. Pericardium No pericardial effusion. Great Vessels Normal size aortic root. CONCLUSIONS Normal left ventricular systolic function with moderate concentric hypertrophy. Aortic Sclerosis without stenosis. No significant Pulmonary hypertension. Rahul Marcano M.D. (Electronically Signed) Final Date: 12 September 2017 16:35 MEASUREMENTS (Male / Female) Normal Values 2D ECHO LV Diastolic Diameter PLAX 2.7 cm 4.2 - 5.9 / 3.9 - 5.3 cm LV Systolic Diameter PLAX 1.1 cm 2.1 - 4.0 cm LV Fractional Shortening PLAX 59.3 % 25 - 46 % LV Ejection Fraction 2D Teich 90.1 % IVS Diastolic Thickness 1.3 cm LVPW Diastolic Thickness 1.3 cm LV Relative Wall Thickness 1.0 RV Internal Dim ED PLAX 3.0 cm 1.9 - 3.8 cm LVOT Diameter 2.0 cm Aortic Root Diameter 2.8 cm LA Systolic Diameter LX 2.8 cm 3.0 - 4.0 / 2.7 - 3.8 cm LA Volume 42.0 cm 18 - 58 / 22 - 52 cm Ascending Aorta Diameter 2.8 cm DOPPLER AV Peak Velocity 148.0 cm/s AV Peak Gradient 8.8 mmHg AV Mean Velocity 104.0 cm/s AV Mean Gradient 5.0 mmHg AV Velocity Time Integral 36.0 cm LVOT Peak Velocity 149.0 cm/s LVOT Peak Gradient 8.9 mmHg LVOT Mean Velocity 102.0 cm/s LVOT Mean Gradient 5.0 mmHg LVOT Velocity Time Integral 26.3 cm LVOT Stroke Volume 82.6 cm AV Area Cont Eq vti 2.3 cm AV Area Cont Eq pk 3.2 cm MV Peak Velocity 148.0 cm/s MV Peak Gradient 8.8 mmHg MV Mean Velocity 68.2 cm/s MV Mean Gradient 3.0 mmHg Mitral E Point Velocity 111.0 cm/s MV PHT Velocity 156.0 cm/s MV Deceleration [place] 806.0 cm/s MV Pressure Half Time 58.1 ms MV Area PHT 3.8 cm MV Deceleration Time 227.0 ms TR Peak Velocity 273.0 cm/s TR Peak Gradient 29.8 mmHg Right Atrial Pressure 5.0 mmHg Pulmonary Artery Systolic Pressu 34.8 mmHg Right Ventricular Systolic Press 34.8 mmHg PV Peak Velocity 132.0 cm/s PV Peak Gradient 7.0 mmHg PV Mean Velocity 91.5 cm/s PV Mean Gradient 4.0 mmHg PV Velocity Time Integral 19.1 cm LV E' Lateral Velocity 9.4 cm/s Mitral E to LV E' Lateral Ratio 11.9 LV E' Septal Velocity 8.5 cm/s Mitral E to LV E' Septal Ratio 13.1
[2017-09-12 22:00] VITALS: BP 118/68
[2017-09-13 06:00] VITALS: BP 130/64
--- NOTE | 2017-09-13 06:36 | PN- Housestaff ---
Melba MCCORMACK,Aisha 09/13/17 0636: Subjective Follow-up For: Bradycardia, hypothyroidism, schizophrenia, atrial fibrillation Complaints: no complaints Tele-Events Since Last Visit: Sinus bradycardia heart rate 60 patient had briefly atrial fibrillation with a heart rate of 120. Subjective: Patient was seen and examined by me at bedside. No overnight events. Patient slept well overnight. Patient denies chest pain, chest pressure, nausea, vomiting, shortness of breath. Review of Systems Constitutional: Reports: no symptoms. Cardiovascular: Reports: no symptoms. Respiratory: Reports: no symptoms. Gastrointestinal: Reports: no symptoms. Genitourinary: Reports: no symptoms. Musculoskeletal: Reports: no symptoms. Objective Last 24 Hrs of Vital Signs/I&O Vital Signs Date Time Temp Pulse Resp B/P B/P Pulse O2 O2 Flow FiO2 Mean Ox Delivery Rate 09/13 1145 98.6 64 18 134/70 09/13 0902 64 134/70 09/13 0600 98.6 71 18 130/64 95 09/12 2200 98.9 51 16 118/68 94 Room Air 09/12 1630 98.6 58 16 122/64 94 Room Air 09/12 1603 112 158/74 09/12 1400 95 Room Air Room Air Intake & Output 09/13 1600 09/13 0800 09/13 0000 Intake Total 100 120 Output Total Balance 100 120 Intake, Oral 100 120 Number 1 Bowel Movements Physical Exam General Appearance: Alert, Oriented X3, Cooperative, No Acute Distress Neck: Supple, No JVD Cardiovascular: Regular Rate, Normal S1, Normal S2, No Murmurs Lungs: Clear to Auscultation Abdomen: Normal Bowel Sounds, Soft, No Tenderness Neurological: Strength at 5/5 X4 Ext, Normal Tone Current Medications: Current Medications Sig/Fidelia Start time Last Medication Dose Route Stop Time Status Admin Acetaminophen 650 MG Q6P PRN 09/05 1630 AC PO Atorvastatin Calcium 80 MG 1700 09/06 1700 AC 09/12 PO 1603 Cefazolin Sodium 2 GM IQ8 09/12 1600 DC 09/12 N/A 1 UNIT IV 09/13 0029 2341 Dextrose/Sodium 1,000 ML Q20H 09/11 1030 DC 09/11 Chloride IV 1028 Enoxaparin Sodium 90 MG DAILY 09/13 1000 AC 09/13 SC 0902 Ferrous Sulfate 325 MG BID 09/07 1000 AC 09/13 PO 0902 Furosemide 20 MG ONCE ONE 09/12 1445 DC 09/12 IV 09/12 1446 1452 Ibuprofen 600 MG Q6P PRN 09/05 1630 AC PO Levothyroxine Sodium 0.075 MG DAILY AC 09/09 0700 AC 09/13 PO 0654 Metoprolol Tartrate 12.5 MG BID 09/13 1000 AC 09/13 PO 0902 Metoprolol Tartrate 25 MG .STK-MED ONE 09/12 1601 DC PO 09/12 1602 Metoprolol Tartrate 12.5 MG ONCE ONE 09/12 1600 DC 09/12 PO 09/12 1601 1603 Morphine Sulfate 1 MG Q4P PRN 09/09 2315 AC 09/09 IV 2316 Potassium Chloride 40 MEQ ONCE ONE 09/13 1145 DC 09/13 PO 09/13 1146 1140 Risperidone 3 MG 2200 09/13 2200 AC PO Ziprasidone 40 MG BID 09/13 1000 AC 09/13 PO 0902 Last 24 Hrs of Lab/Feroz Results Last 24 Hrs of Labs/Mics: Laboratory Tests 09/13/17 0815: Anion Gap 10, Estimated GFR > 60, BUN/Creatinine Ratio 20.0 Assessment/Plan Assessment: 87 year-old female with past medical history of hypertension, hypothyroidism, schizophrenia was referred from supervisor [employer] office with Hypotension and bradycardia. Patient was admitted in telemetry for further evaluation and management. Problem list 1. Bradycardia 2. Hypertension 3. Schizophrenia 4. Hypothyroidism 5. Anemia 6. Atrial fibrillation Assessment and plan 1. Bradycardia - * Secondary due to beta raeann/antipsychotic/hypothyroidism. Patient on day 4 of admission had atrial fibrillation and was transferred to ICU for close monitoring, following which she had metoprolol 2.5 mg and had a brief 12 second pause. Transcutaneous pacer pads were immediately placed. She was paced at several occasions. She flipped back to atrial fibrillation briefly. Hence TTE was done which revealed normal left ventricular function with LVH, aortic sclerosis without aortic stenosis. Later patient had single chamber permanent pacemaker. Postoperative course uneventful. Patient was started on Eliquis 2.5 mg twice a day. 2. Hypertension * We will increase her metoprolol to 25 mg twice a day for rate control. 3. Schizophrenia * We will continue holding ziprasidone, risperidone. Appreciate psychiatry recommendations 4. Hypothyroidism * Her levothyroxine dose was decreased to 75 g today as per endocrinology since her TSH decreased from 12-4.5. 5. Anemia * Patient has an acute drop of hemoglobin since admission. She had 1 unit of blood transfusion after hemoglobin of 7 which improved to 8.7 yesterday. Her anemia workup for hemolysis/hypothyroidism was normal. Her vitamin B12 and folic acid level were normal. Her anemia can be secondary due to hypothyroidism which causes normocytic and normochromic anemia or any gi bleed though she was guaiac was negative. Hematology and oncology, and GI on board. Code-DNR/DNI Diet-heart healthy diet DVT prophylaxis-Lovenox Plan-f 4 discharged to short-term rehabilitation with follow-up with gold layer, supervisor [employer], primary care physician. Patient is advised to repeat her thyroid function test within 1-2 weeks of discharge. Problem List: 1. Bradycardia 2. Hypotension 3. Anemia Pain Ratin Pain Location: none Pain Goal: Remain pain free Pain Plan: tylenol Tomorrow's Labs & Rationales: none Myah Ortega MD 09/13/17 1211: Attending MD Review Statement Attending Statement Attending MD Statement: examined this patient, discuss w/resident/PA/INFRASTRUCTURE SECURITY ARCHITECT, agreed w/resident/PA/INFRASTRUCTURE SECURITY ARCHITECT, reviewed EMR data (avail), discussed with nursing, discussed with case mgmt, amended to note Attending Assessment/Plan: Patient seen and examined. Resting comfortably and was in any acute distress. She has apparently converted back to sinus rhythm. Pacemaker was interrogated this morning and is working properly. I did speak with patient's power of local truck driver who agrees for the patient to be placed on long-term oral anticoagulation therapy. Patient remains very pleasant but confused. She is unable to participate in any decision-making. She offers no complaints today. She does not appear to be in any distress. Has intact dressing over the surgical site. Lungs are clear bilaterally. She has no peripheral edema. She is medically stable to be discharged today. Problems: 1. Paroxysmal atrial fibrillation with sick sinus syndrome status post permanent pacemaker placement. 2. Hypothyroidism. 3. Acute on chronic anemia 4. Hypokalemia Plan: -Case discussed with cardiology service. Metoprolol dose will be increased to 25 mg twice daily. She will be discharged on Eliquis for anticoagulant therapy. -Supplement potassium orally today prior to discharge. -Patient to follow-up with the endocrinology service as an outpatient. -Patient should be referred to the gastroenterology service as an outpatient regarding need for endoscopic workup of her anemia. Hemoglobin level has been stable status post transfusion and initiation of therapy. -Patient is continue on her antipsychotic therapy.
[2017-09-13] MEDS ORDERED: METOPROLOL TART25 M1 PO (09:09)
[2017-09-13] MEDS ORDERED: ELIQUIS2.5 M1 PO ×2 (09:41→13:25)
[2017-09-13] MEDS ORDERED: METOPROLOL SUCC25 M1 PO (10:59)
[2017-09-13] MEDS ORDERED: ELIQUIS5 M1 PO (10:59)
[2017-09-13 11:45] VITALS: BP 134/70
--- NOTE | 2017-09-13 12:08 | PN- Cardiology ---
Subjective Subjective: Remains comfortable but appears confused. Objective Vital Signs and I&Os Vital Signs Date Time Temp Pulse Resp B/P B/P Pulse O2 O2 Flow FiO2 Mean Ox Delivery Rate 09/13 1145 98.6 64 18 134/70 09/13 0902 64 134/70 09/13 0600 98.6 71 18 130/64 95 09/12 2200 98.9 51 16 118/68 94 Room Air 09/12 1630 98.6 58 16 122/64 94 Room Air 09/12 1603 112 158/74 09/12 1400 95 Room Air Room Air Intake & Output 09/13 1600 09/13 0800 09/13 0000 09/12 1600 09/12 0800 09/12 0000 Intake Total 100 120 500 506 598 Output Total Balance 100 120 500 506 598 Intake, IV 500 506 178 Intake, Oral 100 120 420 Number 1 1 Bowel Movements Physical Exam: General: no apparent distress. Eyes: No obvious scleral icterus. HEENT: No jugular venous distention or abnormal jugular venous pulsations. Cardiovascular: Normal intensity S1/S2. Left-sided pressure dressing Respiratory: Lungs clear to auscultation bilaterally. Abdomen: Soft, nontender with no guarding or rebound tenderness. Musculoskeletal: No clubbing or cyanosis noted; no edema Skin: warm Neurologic: confused Current Medications: Current Medications Sig/Fidelia Start time Last Medication Dose Route Stop Time Status Admin Acetaminophen 650 MG Q6P PRN 09/05 1630 AC PO Atorvastatin Calcium 80 MG 1700 09/06 1700 AC 09/12 PO 1603 Cefazolin Sodium 2 GM IQ8 09/12 1600 DC 09/12 N/A 1 UNIT IV 09/13 0029 2341 Dextrose/Sodium 1,000 ML Q20H 09/11 1030 DC 09/11 Chloride IV 1028 Enoxaparin Sodium 90 MG DAILY 09/13 1000 AC 09/13 SC 0902 Ferrous Sulfate 325 MG BID 09/07 1000 AC 09/13 PO 0902 Furosemide 20 MG ONCE ONE 09/12 1445 DC 09/12 IV 09/12 1446 1452 Ibuprofen 600 MG Q6P PRN 09/05 1630 AC PO Levothyroxine Sodium 0.075 MG DAILY AC 09/09 0700 AC 09/13 PO 0654 Metoprolol Tartrate 12.5 MG BID 09/13 1000 AC 09/13 PO 0902 Metoprolol Tartrate 25 MG .STK-MED ONE 09/12 1601 DC PO 09/12 1602 Metoprolol Tartrate 12.5 MG ONCE ONE 09/12 1600 DC 09/12 PO 09/12 1601 1603 Morphine Sulfate 1 MG Q4P PRN 09/09 2315 AC 09/09 IV 2316 Potassium Chloride 40 MEQ ONCE ONE 09/13 1145 DC 09/13 PO 09/13 1146 1140 Risperidone 3 MG 2200 09/13 2200 AC PO Ziprasidone 40 MG BID 09/13 1000 AC 09/13 PO 0902 Results Last 48 Hrs of Labs/Mics: Laboratory Tests 09/13/17 0815: Anion Gap 10, Estimated GFR > 60, BUN/Creatinine Ratio 20.0 09/12/17 0815: PT 12.3, INR 1.17, APTT 40 H 09/12/17 0800: APTT Cancelled 09/12/17 0400: Anion Gap 11, Estimated GFR > 60, Glucose 91, Calcium 8.7, Phosphorus 3.7, Magnesium 1.7, Total Bilirubin 0.4, AST 24, ALT 23, Albumin 3.0 L, CBC w Diff NO MAN DIFF REQ, RBC 3.47 L, MCV 84.6, MCH 27.2, RDW 15.8 H, MPV 8.1, Gran % 56.3, Lymphocytes % 30.3, Monocytes % 10.3 H, Eosinophils % 2.7, Basophils % 0.4, Absolute Granulocytes 4.2, Absolute Lymphocytes 2.3, Absolute Monocytes 0.8 H, Absolute Eosinophils 0.2, Absolute Basophils 0, PUBS MCHC 32.2 L 09/12/17 0011: APTT 113 *H 09/11/17 1750: APTT 35 Recent Imaging Studies: Telemetry tracings were personally reviewed and shows sinus rhythm and sinus bradycardia with intermittent pacing and periods of rapid atrial fibrillation Echo: Normal left ventricular systolic function with moderate concentric hypertrophy. Aortic Sclerosis without stenosis. No significant Pulmonary hypertension. CXR: Interval placement of a pacemaker. There is mild pulmonary vascular congestion, no evidence of pneumothorax. Assessment/Plan Assessment/Plan 1. Tachybradycardia syndrome now s/p PPM 2. Paroxysmal atrial fibrillation now with recurrence 3. Schizophrenia 4. Hypothyroidism 5. History of hypertension/hyperlipidemia The patient is now status post pacemaker insertion with no complications; no evidence of pneumothorax by chest x-ray. Postprocedure device interrogation shows normal function. Recommend increasing the metoprolol to 25 mg by mouth twice a day for better rate control during periods of atrial fibrillation. If her POA elects for long-term anticoagulation recommend Eliquis 2.5 mg by mouth twice a day based on age and weight. Echocardiogram as above shows normal ejection fraction. The patient should follow-up in our office within one week of discharge. Cristóbal Jordan MD [facility] Continue telemetry? No
== END 2017-09-13 12:30 | DRG 244 ==
LOC: ERH 11:21 → 1NO 16:04 → ERHI 16:04 → ENRESERV 17:35 → 1NO 19:19 → CRI 09-09 11:25 → 1NO 09-12 16:39
PROVIDERS: Emergency Medicine; Internal Medicine; Internal Medicine Endocrinology, Diabetes & Metabolism; Internal Medicine Infectious Disease; Student in an Organized Health Care Education/Training Program
PROC: 30233N1 Transfusion of Nonautologous Red Blood Cells into Peripheral Vein, Percutaneous Approach (ICD-10-PCS; 2017-09-07)
PROC: 0JH604Z Insertion of Pacemaker, Single Chamber into Chest Subcutaneous Tissue and Fascia, Open Approach (ICD-10-PCS; principal; 2017-09-12)
PROC: 02HK3JZ Insertion of Pacemaker Lead into Right Ventricle, Percutaneous Approach (ICD-10-PCS; 2017-09-12)
DX: I49.5 Sick sinus syndrome (principal); I48.0 Paroxysmal atrial fibrillation; F20.9 Schizophrenia, unspecified; D64.9 Anemia, unspecified; R00.1 Bradycardia, unspecified; E03.9 Hypothyroidism, unspecified; I10 Essential (primary) hypertension; E78.5 Hyperlipidemia, unspecified; F03.90 Unspecified dementia, unspecified severity, without behavioral disturbance, psychotic disturbance, mood disturbance, and anxiety; Z87.891 Personal history of nicotine dependence; Z79.82 Long term (current) use of aspirin; D50.9 Iron deficiency anemia, unspecified
CPT/HCPCS: 1NP; 1NSP; 86618; CCU; 36415; 71045; 71046; 80307; 82436; 83010; 86376; 86800; 86920; 93005; 93010; 93306; 96361; 96374; 99232; 99233; C1786; C1898; J0461; J0690; J0834; J1644; J1650; J1940; J3490; J7042; J7060; P9016